=== PATIENT | male | born 1955 | race Caucasian/White ===

== ENCOUNTER 2019-05-16 11:11 | Observation (INO) ==
[2019-05-16 11:29] LABS: Basophils # 0.1 K/mm3 (0-0.2); Basophils % 0.6 % (0.1-2.0); Eosinophils # 0.3 K/mm3 (0.0-0.4); Eosinophils % 2.6 % (0.1-12.0); Hematocrit 48.7 % (42.0-52.0); Hemoglobin 16.2 g/dL (14.1-18.0); Lymphocytes # 3.9 K/mm3 (0.7-4.5); Lymphocytes % 40.2 % (10-50); Mean Corpuscular HGB Conc 33.2 g/dL (31.8-35.4); Mean Corpuscular Volume 90.1 fl (80-94); Mean Platelet Volume 7.5 fl (7.4-10.4); Monocytes # 0.7 K/mm3 (0.1-1.0); Monocytes % 7.3 % (1.7-9.3); Neutrophils # 4.7 K/mm3 (1.8-7.8); Neutrophils % 49.2 % (37.0-80.0); Platelet Count 317 K/mm3 (142-424); Red Blood Count 5.41 M/mm3 (4.60-6.20); Red Cell Distribution Width 13.1 % (11.5-17.5); White Blood Count 9.6 K/mm3 (4.8-10.8)
[2019-05-16 11:44] LABS: Anion Gap 15.2 mEq/L (5-15); Blood Urea Nitrogen 14 mg/dL (7-18); Calcium 8.8 mg/dL (8.5-10.1); Carbon Dioxide 25 mmol/L (21.0-32.0); Chloride 105 mmol/L (98-107); Glucose 148 mg/dL (74-106); Sodium 142 mmol/L (136-145)
--- NOTE | 2019-05-16 12:40 | Emergency Department Note ---
ED Disposition Clinical Impression: Chest pain Disposition: Admitted as Observation Condition on Discharge: Good Referrals: Provider,Referral, [Primary Care Provider] - - Critical Care Critical Care Time: No Attestation: On 05/16/19, the high probability of a clinically significant, sudden or life threatening deterioration of the following system(s) required my full and direct attention, intervention and personal management. The time I documented below is in addition to time spent performing reported procedures but includes the following listed in this critical care notation. Medical Decision Making - Medical Records Medical records reviewed: Yes: I reviewed the patient's medical records. - Luke Inquiry Pt receiving controlled substance: No Luke was queried for this patient: No Vital Signs: 05/16/19 11:14 05/16/19 11:55 05/16/19 12:26 Temperature 98.4 F Temperature Source Oral Pulse Rate [Right Radial] 75 67 66 Respiratory Rate 22 Blood Pressure [Right Arm] 182/105 H 132/73 123/75 Blood Pressure Mean [Right Arm] 130 92 91 Blood Pressure Source [Right Arm] Automatic Cuff Automatic Cuff Automatic Cuff Blood Pressure Position [Right Arm] Sitting Supine Supine 02 Sat by Pulse Oximetry 99 95 97 Oxygen Delivery Method Room Air Room Air Room Air - Lab Data Lab Results 05/16/19 11:15: WBC 9.6, RBC 5.41, Hgb 16.2, Hct 48.7, MCV 90.1, MCH 29.9, MCHC 33.2, RDW 13.1, Plt Count 317, MPV 7.5, Neut % (Auto) 49.2, Lymph % (Auto) 40.2, [place] % (Auto) 7.3, Eos % (Auto) 2.6, Baso % (Auto) 0.6, Neut # (Auto) 4.7, Lymph # (Auto) 3.9, [place] # (Auto) 0.7, Eos # (Auto) 0.3, Baso # (Auto) 0.1 05/16/19 11:15: Sodium 142, Potassium 3.2 L, Chloride 105, Carbon Dioxide 25, Anion Gap 15.2 H, BUN 14, Creatinine 1.01, Estimated Creat Clear 96, Estimated GFR 74, Est GFR ( Amer) 90, Glucose 148 H, Calcium 8.8, Troponin I < 0.02 Result diagrams: 05/16/19 11:15 05/16/19 11:15 Orders (Tests/Meds): ED MEDICATIONS Generic Name Dose Route Start Last Admin Trade Name Freq PRN Reason Stop Dose Admin Nitroglycerin 0.4 mg 05/16/19 11:29 Nitrostat 0.4mg Sl Tablet SL 06/15/19 11:28 [id number] PRN Chest Pain Discontinued Medications Generic Name Dose Route Start Last Admin Trade Name Freq PRN Reason Stop Dose Admin Morphine Sulfate 4 mg 05/16/19 11:29 05/16/19 11:40 Morphine 4mg/Ml Syringe IV 05/16/19 11:30 4 mg ONCE ONE Administration Ondansetron HCl 4 mg 05/16/19 11:29 05/16/19 11:40 Zofran 4mg/2ml Vial IV 05/16/19 11:30 4 mg ONCE ONE Administration Chest Pain HPI - General Chief Complaint: Chest Pain Stated Complaint: CP Time Seen by Provider: 05/16/19 11:30 Mode of Arrival: Ambulatory Limitations: No Limitations Description of Symptoms (Recalled from ER Triage Doc. by RN): PT C/O CP IN THE CENTER OF THE CHEST THAT BEGAN APPROX 1 HOUR AGO ACCOMPANIED BY A COUGH. PT DENIES ANY CARDIAC HX OR SIMILAR EPISODES. PT DENIES N/V OR SOA. 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 The patient was working outside and developed substernal chest pain. No radiation was encountered. The patient had pressure and fullness in his chest. The patient had diaphoresis. Patient had no radiation to his neck or arms. Patient had no abdominal symptoms. No nausea or vomiting or diarrhea. The patient has no history. The patient had heart attacks in the past. The patient has had no recent food to upset his stomach. Onset (ago): hour(s) Time: 11:30 Duration: constant Activity at onset: during rest Pain location: substernal Severity: moderate Quality: tightness, aching Pain radiation: none Relieving factors: nothing Exacerbating factors: nothing Associated symptoms: diaphoresis Treatments prior to or on arrival for Cardiac Chest Pain: aspirin, other (Antacids) - Related Data Allergies Allergy/AdvReac Type Severity Reaction Status Date / Time No Known Allergies Allergy Verified 05/16/19 11:12 [facility] History - Hepatitis A Screen Drug use history?: No High risk sexual behaviors?: No History of sexually transmitted infection?: No Currently employed?: No Childcare worker?: No Do you have indoor plumbing?: Yes Do you have electricity?: Yes Attestation statement:: This patient has been screened for Hepatitis A risk factors. - Social History Smoking Status: Never smoker Alcohol Intake: never Occupational Status: employed ROS Obtained: Yes All systems reviewed & no additional complaints Physical Exam - General General appearance: alert - Head Head exam: atraumatic, normocephalic, normal inspection - Eye Eye exam: Present: normal appearance, PERRL, EOMI - ENT ENT exam: Present: normal exam, normal oropharynx, mucous membranes moist, TM's normal bilaterally, normal external ear exam - Neck Neck exam: Present: normal inspection, full ROM, trachea midline. Absent: meningismus, lymphadenopathy - Chest Chest inspection: Present: normal inspection, symmetric chest wall rise. Absent: tenderness - Respiratory Respiratory exam: Present: normal lung sounds bilaterally. Absent: respiratory distress - Cardiovascular Cardiovascular exam: Present: regular rate, normal rhythm. Absent: JVD - Abdominal Exam Abdominal exam: Present: soft, normal bowel sounds. Absent: distention, tenderness, guarding - Extremities Exam Extremities exam: Present: normal inspection, full ROM, normal capillary refill. Absent: calf tenderness - Back Exam Back exam: Present: normal inspection. Absent: tenderness - Neurological Exam Neurological exam: Present: alert, oriented X3 - Psychiatric Psychiatric exam: Present: normal affect, normal mood - Skin Skin exam: Present: warm, dry, intact, normal color - Lymphatic Lymphatic Findings: no adenopathy Procedures - Risk/Benefits of Procedure(s) Were Explained: Yes
--- NOTE | 2019-05-16 13:15 | Consult Report ---
History of Present Illness Consult date: 05/16/19 Requesting physician: Star Tijerina Consult reason: chest pain Chief complaint: chest pain Additional Medical History:: 1. FH of CAD in mother who in her 50's 2. Tobacco use, remote, stopped age 25 but reportedly smoked up to 4 ppd starting at age 8 3. Unstable angina, 05/16/2019, with anterolateral EKG ST segment depression that resolved after 3 SL NTG 4. Arthritis History of present illness: 64 yo WM evaluated in ER for onset of SS CP without radiation. Symptoms associated with mild SOA, nausea and diaphoresis that did not resolved with rest or ASA and antacids. Came to ER for evaluation. Initial EKG is sinus with anterolateral ST segment depression that resolved after SL NTG X 3. Denies treatment for HTN, HLD or DM. He takes celebrex for arthritis. Cardiology consulted for evaluation and recommendations. Pt did start having chest pain after I saw him that responded to NTG SL again. [facility] History *Have you ever received a pneumonia vaccine?: Yes *Have you received a flu vaccine this season?: Yes - *Social History Smoking Status: Never smoker Alcohol Intake: never *Occupational Status:: employed *Travel in the last 8 weeks: None Family Hx:: Heart Attack Meds Home Medications Medication Instructions Recorded Confirmed Type Celecoxib 200 mg PO DAILY 05/16/19 05/16/19 History Pantoprazole Sodium [Protonix 40mg 40 mg PO DAILY 05/16/19 05/16/19 History tablet] Allergies Allergy/AdvReac Type Severity Reaction Status Date / Time No Known Allergies Allergy Verified 05/16/19 11:12 Review of Systems - *Cardiovascular Reports chest pain, Reports shortness of breath with activity - *Respiratory Reports shortness of breath with activity, Denies cough - *Gastrointestinal Denies abdominal pain, Denies loose stools, Denies vomiting - *Genitourinary Denies blood in urine - *Musculoskeletal Reports joint pain, Reports back pain - *Neurologic Denies dizziness, Denies memory loss, Denies tingling Exam Vital signs and Labs for Last 24 Hours: Temp Pulse Resp BP Pulse Ox 98.4 F 71 22 133/87 92 L 05/16/19 11:14 05/16/19 12:57 05/16/19 11:14 05/16/19 12:57 05/16/19 12:57 Laboratory Results - last 24 hr 05/16/19 11:15: WBC 9.6, RBC 5.41, Hgb 16.2, Hct 48.7, MCV 90.1, MCH 29.9, MCHC 33.2, RDW 13.1, Plt Count 317, MPV 7.5, Neut % (Auto) 49.2, Lymph % (Auto) 40.2, [place] % (Auto) 7.3, Eos % (Auto) 2.6, Baso % (Auto) 0.6, Neut # (Auto) 4.7, Lymph # (Auto) 3.9, [place] # (Auto) 0.7, Eos # (Auto) 0.3, Baso # (Auto) 0.1 05/16/19 11:15: Sodium 142, Potassium 3.2 L, Chloride 105, Carbon Dioxide 25, An ion Gap 15.2 H, BUN 14, Creatinine 1.01, Estimated Creat Clear 96, Estimated GFR 74, Est GFR ( Amer) 90, Glucose 148 H, Calcium 8.8, Troponin I < 0.02 I & O for Last 24 hours: Intake & Output 05/14/19 05/15/19 05/16/19 05/17/19 11:59 11:59 11:59 11:59 Weight 202 lb - *Routine HEENT Exam Head: Present: normocephalic Eye: Present: EOMI, PERRL ENT: Present: mucous membranes moist - *Routine Neck Exam Present: supple. Absent: JVD, carotid bruit - *Routine Respiratory Exam Present: CTA bilaterally. Absent: accessory muscle use, rales, rhonchi, wheezes - *Routine Cardiovascular Exam Present: RRR. Absent: murmur, gallop, rubs - *Routine Abdominal Exam Present: soft. Absent: tenderness, distended, guarding - *Routine Extremities Exam Absent: edema, calf tenderness - *Routine Neurological Exam Present: alert, oriented X3, moving all extremities Assessment and Plan (1) Acute coronary syndrome Current visit: Yes Status: Acute Category: Medical Code(s): I24.9 - Acute ischemic heart disease, unspecified (2) Quit using tobacco in remote past Current visit: Yes Status: Acute Category: Social Hx Code(s): Z91.89 - Other specified personal risk factors, not elsewhere classified (3) Arthritis Current visit: Yes Status: Acute Category: Medical Code(s): M19.90 - Unspecified osteoarthritis, unspecified site (4) FH ischemic heart disease Current visit: Yes Status: Acute Category: Medical Code(s): Z82.49 - Family history of ischemic heart disease and other diseases of the circulatory system - Assessment and plan all Dx Assessment and Plan for all problems:: 1. Pt has received ASA loading. NTG paste has been applied. 2. will take to cardiac hoisting laborer for LHC. 3. Further recommendations to follow.
--- NOTE | 2019-05-16 14:43 | Pharmacy Consult Notes ---
[facility] Pharm[facility] VTE Monitoring - Patient Demographics Admission date: 05/16/19 Report Date: 05/16/19 Time: 14:43 Allergies/Adverse Reactions: Patient Allergies No Known Allergies Allergy (Verified 05/16/19 11:12) Height: 1.73 m Weight: 91.626 kg Patient Problems: Current Active Problems Chest pain (Acute) Acute coronary syndrome (Acute) Quit using tobacco in remote past (Acute) Arthritis (Acute) FH ischemic heart disease (Acute) - VTE Risk Labs: VTE Related Lab Results Hgb 16.2 g/dL (14.1-18.0) 05/16/19 11:15 Hct 48.7 % (42.0-52.0) 05/16/19 11:15 Plt Count 317 K/mm3 (142-424) 05/16/19 11:15 BUN 14 mg/dL (7-18) 05/16/19 11:15 Creatinine 1.01 mg/dL (0.70-1.30) 05/16/19 11:15 Estimated Creat Clear 96 mL/min (50-200) 05/16/19 11:15 - Prophylaxis VTE Prophylaxis Ordered?: Yes Types of VTE Prophylaxis: TEDS Knee High Location of Applied Device: Bilateral Lower Extremeties - VTE Diagnosis Confirmed Treatment or plan recommended: Continue Current Treatment
--- NOTE | 2019-05-16 15:57 | Electrocardiograph Report ---
APPROVED REPORT Exam: Resting ECG HR:67 bpm ECG Measurements Heart Rate 67 AXES AL 200 P 52 QRSd 104 QRS -24 QT 432 T60 QTc 456 <Conclusion> Normal sinus rhythm Nonspecific ST abnormality Abnormal ECG Electronically signed by : Larry Chiang, 05/16/2019 15:56:48
--- NOTE | 2019-05-16 15:57 | Electrocardiograph Report ---
APPROVED REPORT Exam: Resting ECG HR:74 bpm ECG Measurements Heart Rate 74 AXES MI 192 P 54 QRSd 106 QRS -17 QT 386 T53 QTc 428 <Conclusion> Normal sinus rhythm Marked ST abnormality, possible anteroseptal subendocardial injury Abnormal ECG Electronically signed by : Larry Chiang, 05/16/2019 15:56:55
--- NOTE | 2019-05-16 17:23 | Progress Note ---
Internal Medicine - PN: Subj *Date: 05/16/19 *Time: 17:20 Interval history: Patient came to ER today after having chest pain while mowing his yard. EKG showed ST depression, pain was relieved with 3 SL NTG. He was taken directly to the pipelines laborer and had 5 stents placed. Troponin was 0.91. Pt is resting comfortably now with family by his side in the ICU. Exam Vital signs and Labs for Last 24 Hours: Temp Pulse Resp BP Pulse Ox 98.5 F 69 18 142/78 H 90 L 05/16/19 17:00 05/16/19 17:00 05/16/19 17:00 05/16/19 17:00 05/16/19 17:00 Laboratory Results - last 24 hr 05/16/19 11:15: WBC 9.6, RBC 5.41, Hgb 16.2, Hct 48.7, MCV 90.1, MCH 29.9, MCHC 33.2, RDW 13.1, Plt Count 317, MPV 7.5, Neut % (Auto) 49.2, Lymph % (Auto) 40.2, [place] % (Auto) 7.3, Eos % (Auto) 2.6, Baso % (Auto) 0.6, Neut # (Auto) 4.7, Lymph # (Auto) 3.9, [place] # (Auto) 0.7, Eos # (Auto) 0.3, Baso # (Auto) 0.1 05/16/19 11:15: Sodium 142, Potassium 3.2 L, Chloride 105, Carbon Dioxide 25, Anion Gap 15.2 H, BUN 14, Creatinine 1.01, Estimated Creat Clear 96, Estimated GFR 74, Est GFR ( Amer) 90, Glucose 148 H, Calcium 8.8, Troponin I < 0.02 05/16/19 13:30: Troponin I 0.91 H 05/16/19 15:03: Activated Clotting Time 384 H* 05/16/19 15:22: Activated Clotting Time 257 H* D Vital Signs - 24 hr 05/16/19 11:14 05/16/19 11:55 05/16/19 12:26 Temperature 98.4 F Pulse Rate Pulse Rate [Right Radial] 75 67 66 Respiratory Rate 22 Blood Pressure Blood Pressure [Right Arm] 182/105 H 132/73 123/75 02 Sat by Pulse Oximetry 99 95 97 05/16/19 12:57 05/16/19 13:40 05/16/19 14:00 Temperature 98.0 F Pulse Rate 80 Pulse Rate [Right Radial] 71 68 Respiratory Rate 18 18 Blood Pressure 112/74 Blood Pressure [Right Arm] 133/87 133/74 02 Sat by Pulse Oximetry 92 L 99 05/16/19 15:30 05/16/19 15:35 05/16/19 15:40 Temperature Pulse Rate Pulse Rate [Right Radial] 74 72 71 Respiratory Rate 18 18 18 Blood Pressure Blood Pressure [Right Arm] 137/82 145/79 H 143/78 H 02 Sat by Pulse Oximetry 93 L 88 L 94 L 05/16/19 15:45 05/16/19 15:49 05/16/19 16:00 Temperature Pulse Rate 67 Pulse Rate [Right Radial] 68 65 64 Respiratory Rate 18 16 18 Blood Pressure Blood Pressure [Right Arm] 140/70 117/71 132/69 02 Sat by Pulse Oximetry 98 94 L 99 05/16/19 17:00 Temperature 98.5 F Pulse Rate 70 Pulse Rate [Right Radial] 69 Respiratory Rate 18 Blood Pressure Blood Pressure [Right Arm] 142/78 H 02 Sat by Pulse Oximetry 90 L I & O for Last 24 hours: Intake & Output 05/13/19 05/14/19 05/15/19 05/16/19 23:59 23:59 23:59 23:59 Weight 202 lb - Constitutional no acute distress (conversant) Assessment and Plan (1) Acute coronary syndrome Current visit: Yes Status: Acute Category: Medical Code(s): I24.9 - Acute ischemic heart disease, unspecified (2) Quit using tobacco in remote past Current visit: Yes Status: Acute Category: Social Hx Code(s): Z91.89 - Other specified personal risk factors, not elsewhere classified (3) Arthritis Current visit: Yes Status: Acute Category: Medical Code(s): M19.90 - Unspecified osteoarthritis, unspecified site (4) FH ischemic heart disease Current visit: Yes Status: Acute Category: Medical Code(s): Z82.49 - Family history of ischemic heart disease and other diseases of the circulatory system (5) Non-ST elevated myocardial infarction Current visit: Yes Status: Acute Category: Medical Code(s): I21.4 - Non-ST elevation (NSTEMI) myocardial infarction (6) S/P coronary artery stent placement Current visit: Yes Status: Acute Category: Surgical Code(s): Z95.5 - Presence of coronary angioplasty implant and graft - Assessment and plan all Dx Assessment and Plan for all problems:: Will check echo and fasting lipids in the morning, continue current post cath care.
--- NOTE | 2019-05-16 18:02 | History & Physical Report ---
*Admission Date: 05/16/19 <Emiliana Traoremagda Diehl 05/16/19 18:02> *Chief complaint: Chest pain <TraoreDanica 05/16/19 18:02> *History of present illness: Mr. Stover is a 64 yo WM with a history of psoriasis, hiatal hernia, esophageal reflux, and right hip fracture who presented to [facility] emergency room after experiencing substernal chest pain without radiation while mowing his yard. He had mild shortness of breath, nausea, and diaphoresis that did not resolve with rest, aspirin or antiacids. Thus he presented to the emergency room for evaluation. Initial EKG showed sinus rhythm with anterior lateral ST segment depression that resolved after 3 nitroglycerin. Cardiology was consulted for evaluation /recommendations after which patient did again begin to have chest pain that responded again to sublingual nitroglycerin. He was taken directly to the [facility] and had 5 stents placed. Troponin was noted at 0.91. At the time of this exam patient appears comfortable and is eating his dinner with family at bedside. He denies chest pain and shortness of breath. <Danica Traore 05/16/19 18:22> [facility] History Medical History: Reports:: Gastroesophageal Reflux Disease(GERD) <Danica Traore 05/16/19 18:10> *Have you ever received a pneumonia vaccine?: Yes <Danica Traore 05/16/19 18:02> *Have you received a flu vaccine this season?: Yes <Danica Traore 05/16/19 18:02> Other Medical History: Reports: Arthritis <Danica rTaore 05/16/19 18:20> Comment:: Hiatal hernia <Danica Traore 05/16/19 18:10> Comment: Left foot surgery in 2016; right hip replacement July 2017 <Danica Traore 05/16/19 18:10> - *Social History Smoking Status: Former smoker <Danica Traore 05/16/19 18:10> Alcohol Intake: never <Danica Traore 05/16/19 18:02> *Occupational Status:: employed <Danica Traore 05/16/19 18:02> *Travel in the last 8 weeks: None <Danica Traore 05/16/19 18:02> Family Hx:: Heart Attack <Danica Traore 05/16/19 18:02> Review of Systems - Constitutional Denies chills, Denies fever(s) <Danica Traore 05/16/19 18:20> - Eyes Comments: Wears contacts which she still has in <Danica Traore 05/16/19 18:20> - ENT Denies ear pain, Denies sore throat <Danica Traore 05/16/19 18:20> - *Cardiovascular Reports chest pain, Reports excessive sweating, Reports shortness of breath, Denies irregular heart rhythm, Denies leg swelling <Danica Traore 05/16/19 18:20> - *Respiratory Reports shortness of breath, Denies chest congestion, Denies cough, Denies coughing up blood <Danica Traore 05/16/19 18:20> - *Gastrointestinal Reports heartburn, Denies abdominal pain, Denies constipation, Denies loose stools <Danica Traore 05/16/19 18:20> - *Genitourinary Denies difficulty urinating <Danica Traore 05/16/19 18:20> - *Musculoskeletal Reports joint pain, Denies abnormal walking <Danica Traore 05/16/19 18:20> - *Neurologic Denies seizure-like activity, Denies dizziness, Denies memory loss, Denies tingling <Danica Traore 05/16/19 18:20> Meds Home Medications Medication Instructions Recorded Confirmed Type Celecoxib 200 mg PO DAILY 05/16/19 05/16/19 History Pantoprazole Sodium [Protonix 40mg 40 mg PO DAILY 05/16/19 05/16/19 History tablet] <Amna Tijerinaian - 05/17/19 08:21> Allergies Allergy/AdvReac Type Severity Reaction Status Date / Time No Known Allergies Allergy Verified 05/16/19 11:12 <Star Tijerina - 05/17/19 08:21> Exam Vital signs and Labs for Last 24 Hours: Temp Pulse Resp BP Pulse Ox 98.0 F 65 14 133/71 96 05/17/19 00:00 05/17/19 06:24 05/17/19 06:24 05/17/19 06:24 05/17/19 06:24 Laboratory Results - last 24 hr 05/16/19 11:15: WBC 9.6, RBC 5.41, Hgb 16.2, Hct 48.7, MCV 90.1, MCH 29.9, MCHC 33.2, RDW 13.1, Plt Count 317, MPV 7.5, Neut % (Auto) 49.2, Lymph % (Auto) 40.2, [place] % (Auto) 7.3, Eos % (Auto) 2.6, Baso % (Auto) 0.6, Neut # (Auto) 4.7, Lymph # (Auto) 3.9, [place] # (Auto) 0.7, Eos # (Auto) 0.3, Baso # (Auto) 0.1 05/16/19 11:15: Sodium 142, Potassium 3.2 L, Chloride 105, Carbon Dioxide 25, Anion Gap 15.2 H, BUN 14, Creatinine 1.01, Estimated Creat Clear 96, Estimated GFR 74, Est GFR ( Amer) 90, Glucose 148 H, Calcium 8.8, Troponin I < 0.02 05/16/19 13:30: Troponin I 0.91 H 05/16/19 15:03: Activated Clotting Time 384 H* 05/16/19 15:22: Activated Clotting Time 257 H* D 05/17/19 05:42: Sodium 139, Potassium 4.0 D, Chloride 103, Carbon Dioxide 29, Anion Gap 11.0, BUN 10 D, Creatinine 0.98, Estimated Creat Clear 100, Estimated GFR 77, Est GFR ( Amer) 93, Glucose 98 D, Calcium 8.4 L, Triglycerides 125, Cholesterol 173, LDL Cholesterol 109, VLDL Cholesterol 25, HDL Cholesterol 39, Cholesterol/HDL Ratio 4.4 H <Star Tijerina - 05/17/19 08:21> Temp Pulse Resp BP Pulse Ox 98.5 F 69 18 142/78 H 90 L 05/16/19 17:00 05/16/19 17:00 05/16/19 17:00 05/16/19 17:00 05/16/19 17:00 Laboratory Results - last 24 hr 05/16/19 11:15: WBC 9.6, RBC 5.41, Hgb 16.2, Hct 48.7, MCV 90.1, MCH 29.9, MCHC 33.2, RDW 13.1, Plt Count 317, MPV 7.5, Neut % (Auto) 49.2, Lymph % (Auto) 40.2, [place] % (Auto) 7.3, Eos % (Auto) 2.6, Baso % (Auto) 0.6, Neut # (Auto) 4.7, Lymph # (Auto) 3.9, [place] # (Auto) 0.7, Eos # (Auto) 0.3, Baso # (Auto) 0.1 05/16/19 11:15: Sodium 142, Potassium 3.2 L, Chloride 105, Carbon Dioxide 25, Anion Gap 15.2 H, BUN 14, Creatinine 1.01, Estimated Creat Clear 96, Estimated GFR 74, Est GFR ( Amer) 90, Glucose 148 H, Calcium 8.8, Troponin I < 0.02 05/16/19 13:30: Troponin I 0.91 H 05/16/19 15:03: Activated Clotting Time 384 H* 05/16/19 15:22: Activated Clotting Time 257 H* D <Danica Traore - 05/16/19 18:02> I & O for Last 24 hours: Intake & Output 05/14/19 05/15/19 05/16/19 05/17/19 23:59 23:59 23:59 23:59 Intake Total 10 10 Output Total 900 / 900 325 / 325 Balance -900 / -900 -315 / -315 Weight 201 lb 15.8 oz 208 lb <Star Tijerina - 05/17/19 08:21> Intake & Output 05/14/19 05/15/19 05/16/19 05/17/19 11:59 11:59 11:59 11:59 Weight 202 lb <Danica Traore - 05/16/19 18:02> Radiology Reports for the Last 24 Hours: Chest x-ray 05/16/2019 IMPRESSION: No acute findings. EKG 05/16/2019 <Conclusion> Normal sinus rhythm Marked ST abnormality, possible anteroseptal subendocardial injury Abnormal ECG Left heart cath 05/16/2019 IMPRESSION Severe two-vessel coronary artery disease as described above Successful stenting of the proximal to mid LAD severe disease reduced to 0% with 2 stents placed in a contiguous manner with persistent stenosis and a large first diagonal artery which is accompanied by MYNOR-3 flow Successful stenting of the proximal to mid circumflex artery with successful bifurcating stents into the first and second obtuse marginal artery. Severe disease reduced to 0% with 3 drug-eluting stents as described in a contiguous bifurcating manner. Normal ejection fraction Normal left ventricular end-diastolic pressure PLAN 1. Brilinta and aspirin for 1 year 2. LDL less than 55 3. Cardiac rehabilitation 4. Aggressive risk factor modification 5. Avoidance of tobacco products 6. The first diagonal artery is best managed medically at this time. Should he experience recurrent angina consideration could be given to stent the diagonal artery. Likewise the right coronary artery is best managed medically Electronically signed by : Berry Negron, 05/16/2019 15:32:25 <Danica Traore 05/16/19 18:20> - Constitutional no acute distress <Danica Traore 05/16/19 18:20> Comments: Lying in bed eating his dinner with family at bedside <Danica Traore 05/16/19 18:20> - *Routine HEENT Exam Head: Present: normocephalic, atraumatic <Danica Traore 05/16/19 18:20> Eye: Present: PERRL. Absent: conjunctival icterus, scleral injection, conjunctivae pink <Danica Traore 05/16/19 18:20> ENT: Present: mucous membranes moist <Danica Traore 05/16/19 18:20> - *Routine Neck Exam Present: supple. Absent: carotid bruit, lymphadenopathy, thyromegaly <Danica Traore 05/16/19 18:20> - *Routine Respiratory Exam Present: CTA bilaterally (Anteriorly and posteriorly) <Danica Traore 18:20> - *Routine Cardiovascular Exam Present: RRR <Danica Traore 05/16/19 18:20> Comments: Sinus rhythm on monitor <Danica Traore 05/16/19 18:20> - *Routine Abdominal Exam Present: soft, normoactive bowel sounds. Absent: tenderness <Danica Traore 05/16/19 18:20> - *Routine Extremities Exam Absent: edema, calf tenderness <Danica Traore 05/16/19 18:20> - *Routine Skin Exam Present: dry, warm <Danica Traore - 05/16/19 18:20> Comments: Color is good <Danica Traore - 05/16/19 18:20> - *Routine Neurological Exam Present: alert, oriented X3 <Danica Traore - 05/16/19 18:20> Assessment and Plan (1) Acute coronary syndrome Current visit: Yes Status: Acute Category: Medical Code(s): I24.9 - Acute ischemic heart disease, unspecified (2) Quit using tobacco in remote past Current visit: Yes Status: Acute Category: Social Hx Code(s): Z91.89 - Other specified personal risk factors, not elsewhere classified (3) Arthritis Current visit: Yes Status: Acute Category: Medical Code(s): M19.90 - Unspecified osteoarthritis, unspecified site (4) FH ischemic heart disease Current visit: Yes Status: Acute Category: Medical Code(s): Z82.49 - Family history of ischemic heart disease and other diseases of the circulatory system (5) Non-ST elevated myocardial infarction Current visit: Yes Status: Acute Category: Medical Code(s): I21.4 - Non-ST elevation (NSTEMI) myocardial infarction (6) S/P coronary artery stent placement Current visit: Yes Status: Acute Category: Surgical Code(s): Z95.5 - Presence of coronary angioplasty implant and graft (7) GERD (gastroesophageal reflux disease) Current visit: Yes Status: Chronic Category: Medical Code(s): K21.9 - Gastro-esophageal reflux disease without esophagitis (8) Hiatal hernia Current visit: Yes Status: Chronic Category: Medical Code(s): K44.9 - Diaphragmatic hernia without obstruction or gangrene <ClevelandStar avendaño - 05/17/19 08:21> (1) Acute coronary syndrome Current visit: Yes Status: Acute Category: Medical Code(s): I24.9 - Acute ischemic heart disease, unspecified (2) Quit using tobacco in remote past Current visit: Yes Status: Acute Category: Social Hx Code(s): Z91.89 - Other specified personal risk factors, not elsewhere classified (3) Arthritis Current visit: Yes Status: Acute Category: Medical Code(s): M19.90 - Unspecified osteoarthritis, unspecified site (4) FH ischemic heart disease Current visit: Yes Status: Acute Category: Medical Code(s): Z82.49 - Family history of ischemic heart disease and other diseases of the circulatory system (5) Non-ST elevated myocardial infarction Current visit: Yes Status: Acute Category: Medical Code(s): I21.4 - Non-ST elevation (NSTEMI) myocardial infarction (6) S/P coronary artery stent placement Current visit: Yes Status: Acute Category: Surgical Code(s): Z95.5 - Presence of coronary angioplasty implant and graft (7) GERD (gastroesophageal reflux disease) Current visit: Yes Status: Chronic Category: Medical Code(s): K21.9 - Gastro-esophageal reflux disease without esophagitis (8) Hiatal hernia Current visit: Yes Status: Chronic Category: Medical Code(s): K44.9 - Diaphragmatic hernia without obstruction or gangrene <Danica Traore - 05/16/19 18:20> - Assessment and plan all Dx Assessment and Plan for all problems:: Saw patient, agree with above note. <Star Tijerina - 05/17/19 08:21> Post cath care as per cardiology. Will check echo and fasting lipids. <Danica Traore - 05/16/19 18:22>
[2019-05-17 07:13] LABS: Basophils % 0.3 % (0.1-2.0); Eosinophils # 0.2 K/mm3 (0.0-0.4); Eosinophils % 1.6 % (0.1-12.0); Hematocrit 44.9 % (42.0-52.0); Hemoglobin 14.9 g/dL (14.1-18.0); Lymphocytes % 17.3 % (10-50); Mean Corpuscular HGB Conc 33.2 g/dL (31.8-35.4); Mean Corpuscular Volume 90.9 fl (80-94); Mean Platelet Volume 7.3 fl (7.4-10.4); Monocytes # 0.6 K/mm3 (0.1-1.0); Monocytes % 5.4 % (1.7-9.3); Neutrophils # 8.8 K/mm3 (1.8-7.8); Neutrophils % 75.4 % (37.0-80.0); Platelet Count 266 K/mm3 (142-424); Red Blood Count 4.94 M/mm3 (4.60-6.20); Red Cell Distribution Width 13.2 % (11.5-17.5); White Blood Count 11.7 K/mm3 (4.8-10.8)
[2019-05-17 07:27] LABS: Calcium 8.4 mg/dL (8.5-10.1); Chol/HDL Ratio 4.4 (1-3.5)
--- NOTE | 2019-05-17 07:35 | Progress Note ---
<Danica Traore - Last Filed: 05/17/19 07:32> Internal Medicine - PN: Subj *Date: 05/17/19 *Time: 07:32 Interval history: Patient has done well overnight. Did not sleep much but states he never sleeps well. He is eating without difficulty. He states he has had a little bit heartburn. He denies chest pain and shortness of breath. He has ambulated to the bathroom without problems. He wishes to go home. Exam Vital signs and Labs for Last 24 Hours: Temp Pulse Resp BP Pulse Ox 98.0 F 65 14 133/71 96 05/17/19 00:00 05/17/19 06:24 05/17/19 06:24 05/17/19 06:24 05/17/19 06:24 Laboratory Results - last 24 hr 05/16/19 11:15: WBC 9.6, RBC 5.41, Hgb 16.2, Hct 48.7, MCV 90.1, MCH 29.9, MCHC 33.2, RDW 13.1, Plt Count 317, MPV 7.5, Neut % (Auto) 49.2, Lymph % (Auto) 40.2, [place] % (Auto) 7.3, Eos % (Auto) 2.6, Baso % (Auto) 0.6, Neut # (Auto) 4.7, Lymph # (Auto) 3.9, [place] # (Auto) 0.7, Eos # (Auto) 0.3, Baso # (Auto) 0.1 05/16/19 11:15: Sodium 142, Potassium 3.2 L, Chloride 105, Carbon Dioxide 25, Anion Gap 15.2 H, BUN 14, Creatinine 1.01, Estimated Creat Clear 96, Estimated GFR 74, Est GFR ( Amer) 90, Glucose 148 H, Calcium 8.8, Troponin I < 0.02 05/16/19 13:30: Troponin I 0.91 H 05/16/19 15:03: Activated Clotting Time 384 H* 05/16/19 15:22: Activated Clotting Time 257 H* D 05/17/19 05:42: Sodium 139, Potassium 4.0 D, Chloride 103, Carbon Dioxide 29, Anion Gap 11.0, BUN 10 D, Creatinine 0.98, Estimated Creat Clear 100, Estimated GFR 77, Est GFR ( Amer) 93, Glucose 98 D, Calcium 8.4 L, Triglycerides 125, Cholesterol 173, LDL Cholesterol 109, VLDL Cholesterol 25, HDL Cholesterol 39, Cholesterol/HDL Ratio 4.4 H I & O for Last 24 hours: Intake & Output 05/14/19 05/15/19 05/16/19 05/17/19 11:59 11:59 11:59 11:59 Intake Total Output Total 1225 / 1225 Balance -1215 / -1215 Weight 202 lb 208 lb - Constitutional no acute distress Comments: Sitting in chair at bedside eating his breakfast - *Routine Respiratory Exam Present: CTA bilaterally (Anteriorly and posteriorly) - *Routine Cardiovascular Exam Present: RRR Comments: Monitor showing sinus rhythm - *Routine Abdominal Exam Present: soft, normoactive bowel sounds. Absent: tenderness - *Routine Extremities Exam Absent: edema, calf tenderness - *Routine Neurological Exam Present: alert, oriented X3 Assessment and Plan (1) Acute coronary syndrome Current visit: Yes Status: Acute Category: Medical Code(s): I24.9 - Acute ischemic heart disease, unspecified (2) Quit using tobacco in remote past Current visit: Yes Status: Acute Category: Social Hx Code(s): Z91.89 - Other specified personal risk factors, not elsewhere classified (3) Arthritis Current visit: Yes Status: Acute Category: Medical Code(s): M19.90 - Unspecified osteoarthritis, unspecified site (4) FH ischemic heart disease Current visit: Yes Status: Acute Category: Medical Code(s): Z82.49 - Family history of ischemic heart disease and other diseases of the circulatory system (5) Non-ST elevated myocardial infarction Current visit: Yes Status: Acute Category: Medical Code(s): I21.4 - Non-ST elevation (NSTEMI) myocardial infarction (6) S/P coronary artery stent placement Current visit: Yes Status: Acute Category: Surgical Code(s): Z95.5 - Presence of coronary angioplasty implant and graft (7) GERD (gastroesophageal reflux disease) Current visit: Yes Status: Chronic Category: Medical Code(s): K21.9 - Gastro-esophageal reflux disease without esophagitis (8) Hiatal hernia Current visit: Yes Status: Chronic Category: Medical Code(s): K44.9 - Diaphragmatic hernia without obstruction or gangrene - Assessment and plan all Dx Assessment and Plan for all problems:: Echo has been completed this a.m. Probably home today. <Star Tijerina - Last Filed: 05/17/19 08:26> Internal Medicine - PN: Subj *Date: 05/17/19 *Time: 08:26 Exam Vital signs and Labs for Last 24 Hours: Temp Pulse Resp BP Pulse Ox 98.0 F 65 14 133/71 96 05/17/19 00:00 05/17/19 06:24 05/17/19 06:24 05/17/19 06:24 05/17/19 06:24 Laboratory Results - last 24 hr 05/16/19 11:15: WBC 9.6, RBC 5.41, Hgb 16.2, Hct 48.7, MCV 90.1, MCH 29.9, MCHC 33.2, RDW 13.1, Plt Count 317, MPV 7.5, Neut % (Auto) 49.2, Lymph % (Auto) 40.2, [place] % (Auto) 7.3, Eos % (Auto) 2.6, Baso % (Auto) 0.6, Neut # (Auto) 4.7, Lymph # (Auto) 3.9, [place] # (Auto) 0.7, Eos # (Auto) 0.3, Baso # (Auto) 0.1 05/16/19 11:15: Sodium 142, Potassium 3.2 L, Chloride 105, Carbon Dioxide 25, Anion Gap 15.2 H, BUN 14, Creatinine 1.01, Estimated Creat Clear 96, Estimated GFR 74, Est GFR ( Amer) 90, Glucose 148 H, Calcium 8.8, Troponin I < 0.02 05/16/19 13:30: Troponin I 0.91 H 05/16/19 15:03: Activated Clotting Time 384 H* 05/16/19 15:22: Activated Clotting Time 257 H* D 05/17/19 05:42: Sodium 139, Potassium 4.0 D, Chloride 103, Carbon Dioxide 29, Anion Gap 11.0, BUN 10 D, Creatinine 0.98, Estimated Creat Clear 100, Estimated GFR 77, Est GFR ( Amer) 93, Glucose 98 D, Calcium 8.4 L, Triglycerides 125, Cholesterol 173, LDL Cholesterol 109, VLDL Cholesterol 25, HDL Cholesterol 39, Cholesterol/HDL Ratio 4.4 H I & O for Last 24 hours: Intake & Output 05/14/19 05/15/19 05/16/19 05/17/19 23:59 23:59 23:59 23:59 Intake Total Output Total 900 / 900 325 / 325 Balance -900 / -900 -315 / -315 Weight 201 lb 15.8 oz 208 lb Assessment and Plan (1) Acute coronary syndrome Current visit: Yes Status: Acute Category: Medical Code(s): I24.9 - Acute ischemic heart disease, unspecified (2) Quit using tobacco in remote past Current visit: Yes Status: Acute Category: Social Hx Code(s): Z91.89 - Other specified personal risk factors, not elsewhere classified (3) Arthritis Current visit: Yes Status: Acute Category: Medical Code(s): M19.90 - Unspecified osteoarthritis, unspecified site (4) FH ischemic heart disease Current visit: Yes Status: Acute Category: Medical Code(s): Z82.49 - Family history of ischemic heart disease and other diseases of the circulatory system (5) Non-ST elevated myocardial infarction Current visit: Yes Status: Acute Category: Medical Code(s): I21.4 - Non-ST elevation (NSTEMI) myocardial infarction (6) S/P coronary artery stent placement Current visit: Yes Status: Acute Category: Surgical Code(s): Z95.5 - Presence of coronary angioplasty implant and graft (7) GERD (gastroesophageal reflux disease) Current visit: Yes Status: Chronic Category: Medical Code(s): K21.9 - Gastro-esophageal reflux disease without esophagitis (8) Hiatal hernia Current visit: Yes Status: Chronic Category: Medical Code(s): K44.9 - Diaphragmatic hernia without obstruction or gangrene - Assessment and plan all Dx Assessment and Plan for all problems:: Saw patient, agree with above note.
--- NOTE | 2019-05-17 10:26 | Progress Note ---
Subjective Date: 05/17/19 Time: 10:15 Principal diagnosis: chest pain Interval history: This is a 64 yo WM who was admitted to the hospital with CP. Pt did have an elevated troponin consistent with a Non-STEMI. He underwent stenting to the LAD with 2 MINH and stenting to the circ bifurcating the 1st OM with 3 MINH. Pt on Brilinta and Asa for DAPT. Having some burning in the chest that he states feels like heart burn. center of chest. pain under the L arm as well. this has been constant since [facility] yesterday. nothing worsens on improves the pain. this is mild and feels nothing like it did yesterday before stenting. denies SOB, edema, fever, chills, N/V/D, PND or orthopnea. Overall, states he feels well and he is ready to go home. Exam Vital signs and Labs for Last 24 Hours: Temp Pulse Resp BP Pulse Ox 98.0 F 66 18 133/83 98 05/17/19 00:00 05/17/19 08:00 05/17/19 08:00 05/17/19 08:00 05/17/19 08:00 Laboratory Results - last 24 hr 05/16/19 11:15: WBC 9.6, RBC 5.41, Hgb 16.2, Hct 48.7, MCV 90.1, MCH 29.9, MCHC 33.2, RDW 13.1, Plt Count 317, MPV 7.5, Neut % (Auto) 49.2, Lymph % (Auto) 40.2, [place] % (Auto) 7.3, Eos % (Auto) 2.6, Baso % (Auto) 0.6, Neut # (Auto) 4.7, Lymph # (Auto) 3.9, [place] # (Auto) 0.7, Eos # (Auto) 0.3, Baso # (Auto) 0.1 05/16/19 11:15: Sodium 142, Potassium 3.2 L, Chloride 105, Carbon Dioxide 25, Anion Gap 15.2 H, BUN 14, Creatinine 1.01, Estimated Creat Clear 96, Estimated GFR 74, Est GFR ( Amer) 90, Glucose 148 H, Calcium 8.8, Troponin I < 0.02 05/16/19 13:30: Troponin I 0.91 H 05/16/19 15:03: Activated Clotting Time 384 H* 05/16/19 15:22: Activated Clotting Time 257 H* D 05/17/19 05:42: WBC 11.7 H, RBC 4.94, Hgb 14.9, Hct 44.9, MCV 90.9, MCH 30.1, MCHC 33.2, RDW 13.2, Plt Count 266, MPV 7.3 L, Neut % (Auto) 75.4, Lymph % (Auto) 17.3, [place]au[place] % (Auto) 5.4, Eos % (Auto) 1.6, Baso % (Auto) 0.3, Neut # (Auto) 8.8 H, Lymph # (Auto) 2.0, [place]au[place] # (Auto) 0.6, Eos # (Auto) 0.2, Baso # (Auto) 0.0 05/17/19 05:42: Sodium 139, Potassium 4.0 D, Chloride 103, Carbon Dioxide 29, Anion Gap 11.0, BUN 10 D, Creatinine 0.98, Estimated Creat Clear 100, Estimated GFR 77, Est GFR ( Amer) 93, Glucose 98 D, Calcium 8.4 L, Triglycerides 125, Cholesterol 173, LDL Cholesterol 109, VLDL Cholesterol 25, HDL Cholesterol 39, Cholesterol/HDL Ratio 4.4 H I & O for Last 24 hours: Intake & Output 05/14/19 05/15/19 05/16/19 05/17/19 23:59 23:59 23:59 23:59 Intake Total Output Total 900 / 900 325 / 325 Balance -900 / -900 -315 / -315 Weight 201 lb 15.8 oz 208 lb Narrative: [facility] shows: MPRESSION Severe two-vessel coronary artery disease as described above Successful stenting of the proximal to mid LAD severe disease reduced to 0% with 2 stents placed in a contiguous manner with persistent stenosis and a large first diagonal artery which is accompanied by MYNOR-3 flow Successful stenting of the proximal to mid circumflex artery with successful bifurcating stents into the first and second obtuse marginal artery. Severe disease reduced to 0% with 3 drug-eluting stents as described in a contiguous bifurcating manner. Normal ejection fraction Normal left ventricular end-diastolic pressure PLAN 1. Brilinta and aspirin for 1 year 2. LDL less than 55 3. Cardiac rehabilitation 4. Aggressive risk factor modification 5. Avoidance of tobacco products 6. The first diagonal artery is best managed medically at this time. Should he experience recurrent angina consideration could be given to stent the diagonal artery. Likewise the right coronary artery is best managed medically - Constitutional no acute distress, obese - *Routine HEENT Exam Head: Present: normocephalic, atraumatic Eye: Present: EOMI, PERRL ENT: Present: mucous membranes moist - *Routine Neck Exam Present: supple, full ROM, normal carotid upstroke. Absent: JVD, carotid bruit, lymphadenopathy - *Routine Respiratory Exam Present: CTA bilaterally - *Routine Cardiovascular Exam Present: RRR, Normal S1, Normal S2. Absent: murmur - *Routine Abdominal Exam Present: soft, normoactive bowel sounds. Absent: tenderness, distended - *Routine Extremities Exam Present: full ROM, pulses intact, normal capillary refill. Absent: cyanosis, clubbing, edema - *Routine Skin Exam Present: intact, warm. Absent: erythema, rash - *Routine Neurological Exam Present: alert, oriented X3, CN II-XII intact. Absent: sensory deficit, motor deficit - Detailed Eye Exam Eyelids: Left normal inspection Progress Note: A&P (1) Non-ST elevated myocardial infarction Status: Acute Current Visit: Yes (2) CAD (coronary artery disease) Status: Chronic Current Visit: Yes (3) Acute coronary syndrome Status: Acute Current Visit: Yes (4) Quit using tobacco in remote past Status: Acute Current Visit: Yes (5) Arthritis Status: Acute Current Visit: Yes (6) FH ischemic heart disease Status: Acute Current Visit: Yes (7) S/P coronary artery stent placement Status: Acute Current Visit: Yes (8) GERD (gastroesophageal reflux disease) Status: Chronic Current Visit: Yes (9) Hiatal hernia Status: Chronic Current Visit: Yes Assessment and Plan for All Diagnoses:: Plan: 1. Pt admitted with CP. Elevsated troponin consistent with a Non-STEMI. 2 stents to LAD and 3 stents to circ bifurcating the 1st OM. tolerated the procedure well. will remain on DAPT with Brilinta and Asa. Long discussion with the patient about the importance of DAPT. pt verbalized understanding. 2. pt having some CP since procedure. burning sensation and feels like heart burn. pain under L arm as well. this is better than before stenting but has been constant. persistent severe disease to the 2nd OM at 80-90%. start Imdur 30 mg daily and ranexa 500 mg BID for angina. 3. start Protonix 40 mg daily for GERD. 4. Pt on BB and Gilbert-I post SD. 5. BP is well controlled. 6. LDL goal is < 55. LDL is 109. On Lipitor 80 mg daily. 7. aggressive risk factor modifications. 8. Echo is pending. prelim EF is normal. 9. pt is stable for discharge home today from a cardiac stand point per Dr. Negron as long as he is on DAPT and anti-anginals and PPI. 10. f/u in 1 week in outpatient clinic. Thank you for the opportunity to help participate in the care of this patient.
--- NOTE | 2019-05-19 10:40 | Discharge Summary ---
General - General Admission date:: 05/16/19 Discharge date: 05/17/19 HPI HPI: Mr. Stover is a 64 yo WM with a history of psoriasis, hiatal hernia, esophageal reflux, and right hip fracture who presented to [facility] emergency room after experiencing substernal chest pain without radiation while mowing his yard. He had mild shortness of breath, nausea, and diaphoresis that did not resolve with rest, aspirin or antiacids. Thus he presented to the emergency room for evaluation. Initial EKG showed sinus rhythm with anterior lateral ST segment depression that resolved after 3 nitroglycerin. Cardiology was consulted for evaluation /recommendations after which patient did again begin to have chest pain that responded again to sublingual nitroglycerin. He was taken directly to the [facility] and had 5 stents placed. Troponin was noted at 0.91. At the time of this exam patient appears comfortable and is eating his dinner with family at bedside. He denies chest pain and shortness of breath. Hospital Course Hospital Course: The patient did well after stent placement. It was recommended by cardiology that he remain on Brilinta and aspirin for 1 year and undergo cardiac rehabilit ation. An echo was ordered. The official result is still pending at this time although preliminary showed an EF of over 50%. The patient did well overnight and was eating without difficulty. He denied any chest pain or shortness of breath and was ambulating around his room. He wanted to go home. He was stable to be discharged home and follow-up with cardiology in [address] Tijerina in 2 weeks Objective Vital signs: Temp Pulse Resp BP Pulse Ox 98.0 F 70 16 113/68 97 05/17/19 00:00 05/17/19 16:00 05/17/19 14:00 05/17/19 14:00 05/17/19 14:00 Narrative: - Constitutional no acute distress Comments: Lying in bed eating his dinner with family at bedside - *Routine HEENT Exam Head: Present: normocephalic, atraumatic Eye: Present: PERRL. Absent: conjunctival icterus, scleral injection, conjunctivae pink ENT: Present: mucous membranes moist - *Routine Neck Exam Present: supple. Absent: carotid bruit, lymphadenopathy, thyromegaly - *Routine Respiratory Exam Present: CTA bilaterally (Anteriorly and posteriorly) - *Routine Cardiovascular Exam Present: RRR Comments: Sinus rhythm on monitor - *Routine Abdominal Exam Present: soft, normoactive bowel sounds. Absent: tenderness - *Routine Extremities Exam Absent: edema, calf tenderness - *Routine Skin Exam Present: dry, warm Comments: Color is good - *Routine Neurological Exam Present: alert, oriented X3 DS: Diagnosis - Discharge Diagnosis (1) Non-ST elevated myocardial infarction Status: Acute (2) CAD (coronary artery disease) Status: Chronic (3) Acute coronary syndrome Status: Acute (4) Quit using tobacco in remote past Status: Acute (5) Arthritis Status: Acute (6) FH ischemic heart disease Status: Acute (7) S/P coronary artery stent placement Status: Acute (8) GERD (gastroesophageal reflux disease) Status: Chronic (9) Hiatal hernia Status: Chronic Discharge Plan - Patient Discharge Instructions ACTIVITY: Continue current activity DIET: continue same diet Patient Instructions: DI for Acute Coronary Syndrome, Heart-Healthy Diet, DI for Angina, DI for Cardiac Catheterization, DI for Surgical Site Infection Forms: [facility] Work Release - Follow up Plan Follow up with: Star Tijerina MD [Primary Care Provider] - 2 weeks Berry Negron MD [Staff Physician] - 1 week Disposition: Home, Self-Fci Medications: Home Medications Medication Instructions Recorded Confirmed Type Celecoxib 200 mg PO DAILY 05/16/19 05/16/19 History Pantoprazole Sodium [Protonix 40mg 40 mg PO DAILY 05/16/19 05/16/19 History tablet] Aspirin [Aspirin 81mg EC Tab] 81 mg PO DAILY #30 tablet. 05/17/19 Rx Atorvastatin Calcium [Atorvastatin 80 mg PO HS #30 tab 05/17/19 Rx 80mg Tab] Isosorbide Mononitrate [Imdur 30mg 30 mg PO DAILY #30 tab.er.24h 05/17/19 Rx ER tablet] Lisinopril [Lisinopril 5mg 5 mg PO DAILY #30 tab 05/17/19 Rx Tablet] Metoprolol Succinate 25 mg PO DAILY #30 tab.er.24h 05/17/19 Rx Ranolazine [Ranexa 500mg ER tablet] 500 mg PO BID #60 tab.er.12h 05/17/19 Rx Ticagrelor [Brilinta 90mg Tablet] 90 mg PO BID #60 tab 05/17/19 Rx nitroglycerin 0.4 mg sublingual 0.4 mg SUBLINGUAL Q5-15M PRN #20 05/18/19 Rx tablet tab Prescriptions/Medication Reconciliation: New Aspirin [Aspirin 81mg EC Tab] 81 mg PO DAILY #30 tablet. Atorvastatin Calcium [Atorvastatin 80mg Tab] 80 mg PO HS #30 tab Ticagrelor [Brilinta 90mg Tablet] 90 mg PO BID #60 tab Isosorbide Mononitrate [Imdur 30mg ER tablet] 30 mg PO DAILY #30 tab.er.24h Lisinopril [Lisinopril 5mg Tablet] 5 mg PO DAILY #30 tab Ranolazine [Ranexa 500mg ER tablet] 500 mg PO BID #60 tab.er.12h Metoprolol Succinate 25 mg PO DAILY #30 tab.er.24h Continued Celecoxib 200 mg PO DAILY Pantoprazole Sodium [Protonix 40mg tablet] 40 mg PO DAILY No Action nitroglycerin 0.4 mg sublingual tablet 0.4 mg SUBLINGUAL Q5-15M PRN #20 tab PRN Reason: chest pain - Problem Reconciliation Problems Reviewed?: Yes
== END 2019-05-17 18:30 | disposition home or self-care (01) ==
LOC: ER 11:11 → 2ND 11:11 → ICU 15:38
PROVIDERS: ADMIT Family Medicine; ATTEND Family Medicine
CPT/HCPCS: 36415; 71010; 71045; 80048; 80061; 84484; 85025; 85347; 92928; 92929; 92941; 93005; 93306; 93458; 99152; 99153; 99283; C1725; C1769; C1876; C9600; C9601; C9606; G0378; J1644; J2405; Q9967

== ENCOUNTER → 2019-05-24 08:08 | Outpatient (CLI) | payer BC, SELFPAY ==
[2019-05-24 08:22] LABS: Hematocrit 46.4 % (42.0-52.0); Hemoglobin 15.6 g/dL (14.1-18.0)
[2019-05-24 08:28] LABS: Blood Urea Nitrogen 12 mg/dL (7-18); Creatinine,Serum 1.02 mg/dL (0.70-1.30); Estimated Glomerular Filt Rate 74 ml/min (>60); GFR (African American) 89 ML/MIN (>60)
[2019-05-24 13:36] LABS: Anion Gap 13.9 mEq/L (5-15); Blood Urea Nitrogen 11 mg/dL (7-18); Calcium 8.5 mg/dL (8.5-10.1); Carbon Dioxide 27 mmol/L (21.0-32.0); Chloride 104 mmol/L (98-107); Creatinine,Serum 1.01 mg/dL (0.70-1.30); Estimated Glomerular Filt Rate 74 ml/min (>60); GFR (African American) 90 ML/MIN (>60); Glucose 116 mg/dL (74-106); Magnesium 1.8 mg/dL (1.4-2.2); Potassium 4.9 mmoL/L (3.5-5.1); Sodium 140 mmol/L (136-145)
== END ==
PROVIDERS: Physician Assistant; Visit Provider Internal Medicine
DX: E78.5 Hyperlipidemia, unspecified (principal); I10 Essential (primary) hypertension; I21.4 Non-ST elevation (NSTEMI) myocardial infarction; I25.10 Atherosclerotic heart disease of native coronary artery without angina pectoris; K21.9 Gastro-esophageal reflux disease without esophagitis; Z95.5 Presence of coronary angioplasty implant and graft
CPT/HCPCS: 36415; 80048; 82565; 83735; 84520; 85014; 85018

== ENCOUNTER 2019-06-06 12:46 | Outpatient (RCR) | payer BC, SELFPAY | END 2019-08-21 13:23 | disposition home or self-care (01) | LOC: PT 12:46 | PROVIDERS: Visit Provider Internal Medicine | DX: Z95.5 Presence of coronary angioplasty implant and graft (principal) | CPT/HCPCS: 93798 ==

== ENCOUNTER → 2020-09-13 08:45 | Outpatient (CLI) | payer MEDICARE, SELFPAY ==
--- NOTE | 2020-09-13 08:49 | CA_ITS ---
APPROVED REPORT EXAM: Comprehensive 2D, Doppler, and color-flow Echocardiogram [employer] Operator: Keesha Stevenson RVT Ht: 5 ft 8 in Wt: 227lbs BSA: 2.16 BP: 173/92 mmHg Indications: SOA,CAD,HTN,HLD,STENT,GERD,EX SMOKER 2D Dimensions LVOT 2.20 cm (M/F) 1.5-2.5 M-Mode Dimensions RVDd 2.58 cm (0.9-2.6) LA Diam 5.16 cm (1.9-4.0) LVDd 6.01 cm (3.5-5.7) Ao Diam 2.83 cm (2.0-3.7) LVDs 4.09 cm (3.5-5.7) IVSd 0.67 cm (0.6-1.1) PWd 0.89 cm (0.6-1.1) EF (Teich) 59.20% FS 31.90% EDV (Teich) 180.70 mL ESV (Teich) 73.80 mL LV Diastology E Decel Time 197.00 (160-240 msec) E/A Ratio 0.7 MED E' 7.00 (< 7 cm/sec) E'/MED E' Ratio 7.77 (>14) LAT E' 8.90 (<10 cm/sec) E/LAT E' Ratio 6.11 (>14) Mitral Valve MV E Max Inocente. 54.00 (40-130 cm/s) MV A Velocity 77.00 (40-130 cm/s) E/A Ratio 0.70 MV Decel. Time 197.00 (160-240 ms) MV PHT 58.00 ms Pulmonary Valve PV Peak Velocity 72.00 (50-150 cm/s) Tricuspid Valve TR P. Velocity 262.00 cm/s RAP Estimate 10.00 mmHg RVSP 37.40 mmHg Left Ventricle Left atrium is mildly enlarged, left ventricle is normal size, mild concentric left ventricular hypertrophy, visually estimated ejection fraction 55% with no regional wall motion abnormality. Grade 1 diastolic dysfunction seen without tissue Doppler evidence of raise left atrial pressure. Right Ventricle Right atrium and right ventricle are normal size and contractility. Aortic Valve Aortic valve is minimally thickened and fibrosed, Mitral Valve Mitral valve is grossly normal, there is mild mitral regurgitation. Tricuspid Valve Tricuspid valve is grossly normal, there is mild tricuspid regurgitation, tricuspid regurgitation jet velocity is inadequate for calculation of the right ventricular systolic pressure. Pulmonic Valve Pulmonic valve is poorly visualized. Great Vessels Aortic root is normal size. Pericardium No significant pericardial effusion noted. Conclusion 1. Mildly enlarged left atrium, normal left ventricular size, mild concentric left ventricular hypertrophy, visually estimated ejection fraction 55% with no regional wall motion abnormality, grade 1 diastolic dysfunction seen without tissue Doppler evidence of raise left atrial pressure. Endocardial surfaces are poorly visualized. 2. Mild mitral and tricuspid regurgitation. 3. No significant pericardial effusion noted. Electronically signed by : Stewart Jung, 09/13/2020 12:58:52
== END ==
PROVIDERS: Visit Provider Urology
DX: E78.2 Mixed hyperlipidemia (principal); I10 Essential (primary) hypertension; I25.10 Atherosclerotic heart disease of native coronary artery without angina pectoris; Z95.5 Presence of coronary angioplasty implant and graft; R94.31 Abnormal electrocardiogram [ECG] [EKG]
CPT/HCPCS: 93306

== ENCOUNTER → 2020-12-09 09:03 | Outpatient (CLI) | payer MEDICARE, OTHER, SELFPAY ==
[2020-12-09 10:06] LABS: Chloride 105 mmol/L (98-107); Sodium 140 mmol/L (136-145)
[2020-12-09 10:08] LABS: Bilirubin,Unconjugated 0.7 mg/dL (0.0-1.1); Blood Urea Nitrogen 24 mg/dl (9-20); Estimated Glomerular Filt Rate 67 ml/min (>60); GFR (African American) 81 ML/MIN (>60)
[2020-12-09 10:09] LABS: Alanine Aminotransferase 34 U/L (12-78); Albumin Level 4.2 g/dl (3.5-5.0); Alkaline Phosphatase 130 U/L (38-126); Aspartate Amino Transferase 31 U/L (17-59); Bilirubin,Direct 0.1 mg/dl (0.0-0.4); Bilirubin,Indirect 0.7 mg/dL (0.0-0.9); Bilirubin,Total 0.8 mg/dl (0.2-1.3); Calcium 9.3 mg/dl (8.4-10.2); Carbon Dioxide 30 mmol/L (22.0-30.0); Cholesterol 175 mg/dl (140-200); Glucose 140 mg/dl (74-100); HDL Cholesterol 44 mg/dl (40-60); Total Protein,Serum 7.4 g/dl (6.3-8.2); Triglycerides 159 mg/dl (30-150); VLDL Cholesterol 32 mg/dL (0-40)
[2020-12-09 10:21] LABS: Direct LDL Cholesterol 88.73 mg/dL (100-129)
== END ==
PROVIDERS: Visit Provider Urology
DX: E78.2 Mixed hyperlipidemia (principal); I25.10 Atherosclerotic heart disease of native coronary artery without angina pectoris; K21.9 Gastro-esophageal reflux disease without esophagitis; R06.09 Other forms of dyspnea; Z95.5 Presence of coronary angioplasty implant and graft; I11.9 Hypertensive heart disease without heart failure
CPT/HCPCS: 36415; 80048; 80061; 80076

== ENCOUNTER → 2021-06-18 07:02 | Outpatient (CLI) | payer MEDICARE, OTHER, SELFPAY ==
[2021-06-18 07:43] LABS: Basophils # 0.1 K/mm3 (0-0.2); Eosinophils # 0.3 K/mm3 (0.0-0.4); Eosinophils % 3.5 % (0.1-12.0); Hematocrit 42.5 % (42.0-52.0); Hemoglobin 14.5 g/dL (14.1-18.0); Lymphocytes # 2.5 K/mm3 (0.7-4.5); Mean Corpuscular HGB Conc 34.1 g/dL (31.8-35.4); Mean Corpuscular Hemoglobin 31.1 pg (27.0-31.2); Mean Corpuscular Volume 91.2 fl (80-94); Mean Platelet Volume 8.6 fl (7.4-10.4); Monocytes # 0.6 K/mm3 (0.1-1.0); Monocytes % 6.4 % (1.7-9.3); Neutrophils # 5.2 K/mm3 (1.8-7.8); Neutrophils % 60.1 % (37.0-80.0); Platelet Count 263 K/mm3 (142-424); Red Blood Count 4.66 M/mm3 (4.60-6.20); Red Cell Distribution Width 13.7 % (11.5-17.5); White Blood Count 8.6 K/mm3 (4.8-10.8)
[2021-06-18 08:54] LABS: Alanine Aminotransferase 26 U/L (12-78); Albumin/Globulin Ratio 1.3 (1.1-1.8); Alkaline Phosphatase 118 U/L (38-126); Anion Gap 13.2 mEq/L (5-15); Aspartate Amino Transferase 32 U/L (17-59); Bilirubin,Total 0.6 mg/dl (0.2-1.3); Blood Urea Nitrogen 20 mg/dl (9-20); Calcium 8.5 mg/dl (8.4-10.2); Carbon Dioxide 30 mmol/L (22.0-30.0); Chloride 102 mmol/L (98-107); Chol/HDL Ratio 4.4 (1-3.5); Cholesterol 173 mg/dl (140-200); Estimated Glomerular Filt Rate 67 ml/min (>60); GFR (African American) 81 ML/MIN (>60); Glucose 110 mg/dl (74-100); HDL Cholesterol 39 mg/dl (40-60); Potassium 4.2 mmoL/L (3.5-5.1); Sodium 141 mmol/L (136-145); Triglycerides 236 mg/dl (30-150); VLDL Cholesterol 47 mg/dL (0-40)
[2021-06-18 09:06] LABS: Direct LDL Cholesterol 89.08 mg/dL (100-129)
[2021-06-18 09:25] LABS: Thyroid Stimulating Hormone 2.84 uIU/mL (0.465-4.68)
== END ==
PROVIDERS: Visit Provider Family Medicine
DX: I10 Essential (primary) hypertension (principal); E78.2 Mixed hyperlipidemia
CPT/HCPCS: 36415; 80053; 80061; 84443; 84550; 85025

== ENCOUNTER → 2022-11-20 14:32 | Outpatient (CLI) | payer MEDICARE, OTHER, SELFPAY ==
--- NOTE | 2022-11-20 14:38 | CA_ITS ---
APPROVED REPORT EXAM: Comprehensive 2D, Doppler, and color-flow Echocardiogram Pile Header: Yesy Cartwright RDCS Ht: 5 ft 8 in Wt: 218lbs BSA: 2.12 BP: 146/78 mmHg Indications: SOA,CAD 2D Dimensions LVOT 2.15 cm (M/F) 1.5-2.5 M-Mode Dimensions RVDd 2.70 cm (0.9-2.6) LA Diam 4.36 cm (1.9-4.0) LVDd 5.03 cm (3.5-5.7) Ao Diam 3.43 cm (2.0-3.7) LVDs 3.22 cm (3.5-5.7) IVSd 0.80 cm (0.6-1.1) PWd 0.89 cm (0.6-1.1) EF (Teich) 65.30% FS 36.00% EDV (Teich) 119.90 mL ESV (Teich) 41.60 mL LV Diastology E Decel Time 227.00 (160-240 msec) E/A Ratio 1.1 MED E' 7.60 (< 7 cm/sec) E'/MED E' Ratio 8.80 (>14) LAT E' 8.60 (<10 cm/sec) E/LAT E' Ratio 7.78 (>14) Mitral Valve MV E Max Inocente. 67.00 (40-130 cm/s) MV A Velocity 63.00 (40-130 cm/s) E/A Ratio 1.07 MV Decel. Time 227.00 (160-240 ms) MV PHT 66.00 ms Tricuspid Valve TR P. Velocity 261.00 cm/s RAP Estimate 10.00 mmHg RVSP 37.20 mmHg Left Ventricle Left atrium is mildly enlarged, left ventricular normal size, estimated ejection fraction 55% with no regional wall motion abnormality, diastolic parameters are inconclusive. Right Ventricle Right atrium and right ventricle are mildly enlarged with normal contractility. Aortic Valve Aortic valve is minimally thickened and calcified without aortic stenosis aortic insufficiency. Mitral Valve Mitral valve is grossly normal. There is trace mitral regurgitation. Tricuspid Valve Tricuspid grossly normal, there is trace tricuspid regurgitation, calculated right ventricular systolic pressure 37 mmHg. Pulmonic Valve Pulmonic valve is poorly visualized. Great Vessels Aortic root is normal size. Inferior vena cava is normal size with normal inspiratory collapse. Pericardium No significant pericardial effusion noted. Conclusion 1. Mild biatrial enlargement, normal left ventricular size, estimated ejection fraction 55% with no regional wall motion abnormality, diastolic parameters are inconclusive. 2. Mildly enlarged right ventricle with normal contractility. 3. Trace mitral and tricuspid regurgitation. Calculated right ventricular systolic pressure 37 mmHg. 4. No significant pericardial effusion noted. 5. Inferior vena cava is normal size with normal inspiratory collapse. Electronically signed by : Stewart Jung MD 11/20/2022 15:53:22
== END ==
PROVIDERS: PCP Family Medicine; Visit Provider Nurse Practitioner Family
DX: E78.2 Mixed hyperlipidemia (principal); I10 Essential (primary) hypertension; I25.10 Atherosclerotic heart disease of native coronary artery without angina pectoris; Z95.5 Presence of coronary angioplasty implant and graft
CPT/HCPCS: 93306

== ENCOUNTER → 2023-06-01 08:22 | Outpatient (CLI) | payer MEDICARE, OTHER, SELFPAY ==
[2023-06-01 10:08] LABS: Alanine Aminotransferase 29 U/L (12-78); Albumin Level 3.6 g/dl (3.5-5.0); Alkaline Phosphatase 141 U/L (38-126); Aspartate Amino Transferase 29 U/L (17-59); Bilirubin,Direct 0.2 mg/dl (0.0-0.4); Bilirubin,Indirect 0.6 mg/dL (0.0-0.9); Bilirubin,Total 0.8 mg/dl (0.2-1.3); Bilirubin,Unconjugated 0.5 mg/dL (0.0-1.1); Chol/HDL Ratio 3.7 (1-3.5); Cholesterol 141 mg/dl (140-200); HDL Cholesterol 38 mg/dl (40-60); Total Protein,Serum 6.5 g/dl (6.3-8.2); Triglycerides 102 mg/dl (30-150); VLDL Cholesterol 20 mg/dL (0-40)
[2023-06-01 10:20] LABS: Direct LDL Cholesterol 71.51 mg/dL (100-129)
[2023-06-01 10:27] LABS: MANUAL DIFFERENTIAL MANUAL DIFFERENTIAL (MANUAL DIFF)
[2023-06-01 10:39] LABS: Basophils % 0.4 % (0.1-2.0); Eosinophils # 0.3 K/mm3 (0.0-0.4); Eosinophils % 3.4 % (0.1-12.0); Hematocrit 45.8 % (42.0-52.0); Hemoglobin 15.1 g/dL (14.1-18.0); Lymphocytes # 1.5 K/mm3 (0.7-4.5); Lymphocytes % 20.7 % (10-50); Mean Corpuscular HGB Conc 33.1 g/dL (31.8-35.4); Mean Corpuscular Hemoglobin 29.9 pg (27.0-31.2); Mean Corpuscular Volume 90.2 fl (80-94); Mean Platelet Volume 8.6 fl (7.4-10.4); Monocytes # 0.5 K/mm3 (0.1-1.0); Monocytes % 7.2 % (1.7-9.3); Neutrophils % 68.2 % (37.0-80.0); Platelet Count 237 K/mm3 (142-424); Red Blood Count 5.07 M/mm3 (4.60-6.20); Red Cell Distribution Width 13.5 % (11.5-17.5); White Blood Count 7.3 K/mm3 (4.8-10.8)
[2023-06-01 10:55] LABS: Free Thyroxine Index 2.4 ug/dL (5.93-13.13); Triiodothryronine (T3) Uptake 34 % (23.5-40.5)
[2023-06-01 11:12] LABS: Eosinophils % 3 % (0-3); Lymphocytes % 30 % (10-50); Monocytes % 3 % (2-9); Neutrophils % 64 % (42-76); Platelet Estimate Normal; RBC Morphology Normal; Total Cells Counted 100
[2023-06-01 11:25] LABS: Thyroid Stimulating Hormone 2.79 uIU/mL (0.465-4.68)
[2023-06-01 13:19] LABS: Chloride 107 mmol/L (98-107); Potassium 4.2 mmoL/L (3.5-5.1); Sodium 143 mmol/L (136-145)
[2023-06-01 13:22] LABS: Blood Urea Nitrogen 20 mg/dl (9-20); Estimated Glomerular Filt Rate 67 ml/min (>60); GFR (African American) 81 ML/MIN (>60)
[2023-06-01 13:23] LABS: Anion Gap 15.2 mEq/L (5-15); Calcium 8.9 mg/dl (8.4-10.2); Carbon Dioxide 25 mmol/L (22.0-30.0); Glucose 100 mg/dl (74-100)
== END ==
PROVIDERS: Physician Assistant; PCP Family Medicine; Visit Provider Nurse Practitioner Family
DX: I10 Essential (primary) hypertension (principal); I25.10 Atherosclerotic heart disease of native coronary artery without angina pectoris; E78.5 Hyperlipidemia, unspecified; I51.89 Other ill-defined heart diseases; Z95.5 Presence of coronary angioplasty implant and graft
CPT/HCPCS: 36415; 80048; 80061; 80076; 84436; 84443; 84479; 85007; 85014; 85018; 85048; 85049

== ENCOUNTER 2025-03-21 08:19 | Outpatient (CLI) | payer MEDICARE, SELFPAY ==
--- OUTSIDE RECORDS SUMMARY | 2025-03-21 08:23 | XMS_ITS | Clinical Summary ---
Author Organization [facility] Address [address] [place] [address] Phone CareEverywhereSuppor Care Team Providers Care Blood Bank Technician Name Role Phone Reymundo Morgan Primary Care Provider Unavailabl e Allergies Active Allergy Reactions Criticality Noted Date Comments Bacitracin 12/30/2018 Hydrocortisone 12/30/2018 Medications celecoxib (CeleBREX) 200 MG capsule 10/19/2018 Active pantoprazole (PROTONIX) 40 MG EC tablet 10/17/2018 Active EQ ASPIRIN ADULT LOW DOSE 81 MG EC tablet Take 81 mg by mouth 1 (one) time each day. 11 06/11/2019 Active atorvastatin (LIPITOR) 80 MG tablet Take 80 mg by mouth every night. 06/11/2019 Active metoprolol succinate XL (TOPROL-XL) 25 MG 24 hr tablet Take 25 mg by mouth 1 (one) time each day. 06/11/2019 Active losartan (COZAAR) 50 MG tablet Take 50 mg by mouth 1 (one) time each day. 5 06/16/2019 Active lisinopril (ZESTRIL) 5 MG tablet Take 5 mg by mouth 1 (one) time each day. 06/11/2019 Active nitroglycerin (NITROSTAT) 0.4 MG SL tablet DISSOLVE ONE TABLET UNDER THE TONGUE EVERY 5 TO 15 MINUTES NEEDED FOR CHEST PAIN UNTIL RESPONSE. DO NOT EXCEED A TOTAL OF 3 DOSES IN 15 M 0 05/18/2019 Active BRILINTA 90 MG tablet 06/11/2019 Active Active Problems Problem Noted Date Diagnosed Date Coronary artery disease 06/20/2019 History of coronary artery stent placement 06/20 Pain in joint involving other specified sites Overview (02/23/2018): Pain in joint, lower leg 05/07/2009 Overview (02/23/2018): Other examination of ears and hearing 02/13/2008 Overview (02/23/2018): Social History Tobacco Use Types Packs/Day Years Used Date Smoking Tobacco: Former Cigarettes Q uit: 1987 Smokeless Tobacco: Never Alcohol Use Standard Drinks/Week Comments No 0 (1 standard drink = 0.6 oz pur e alcohol) Sex and Gender Information Value Date Recorded Sex Assigned at Not on file Legal Sex Male 9:36 AM CDT Gender Identity Not on file Sexual Orientation Not on file Last Filed Vital Signs Vital Sign Reading Time Taken Comments Blood Pressure 128/76 06/20/2019 3:47 PM EDT Pulse 76 06/20/2019 3:47 PM EDT Temperature 36.4 C (97.6 F) 06/20/2019 3:47 PM EDT Respiratory Rate 14 06/20/2019 3:47 PM EDT Oxygen Saturation 98% 06/20/2019 3:47 PM EDT Inhaled Oxygen Concentration - - Weight 97.3 kg (214 lb 8 oz) 06/04/2017 2:41 PM CDT Height 172.7 cm (5' 8 ) 06/04/2017 2:41 PM CDT Body Mass Index 32.61 06/04/2017 2:41 PM CDT Plan of Treatment Health Maintenance Due Date Last Done Comments Dental Cleaning/Exam 1955 Tetanus Diphtheria and Pertu ssis Immunization (1 - Tdap) 1974 Colorectal Cancer Screening 1985 Pneumococcal: 65+ Years (1 o f 1 - PCV) 2005 Zoster Immunization (1 of 2) 2005 Covid-19 Immunization (1 - 2 25 season) 2024 Influenza Immunization (Seas on Ended) 2025 HIB Immunization Aged Out No longer e ligible based on patient's age to complete this topic HPV Immunization Aged Out No longer e ligible based on patient's age to complete this topic Hepatitis A Immunization Aged Out No longer eligible based on patient's age to complete this topic Hepatitis B Immunization Aged Out No longer eligible based on patient's age to complete this topic Polio Immunization Aged Out No longer eligible based on patient's age to complete this topic Insurance [place] 5 Care Teams Blood Bank Technician Relationship Specialty Start Date End Date Reymundo Morgan PCP - General 06/20/19
--- OUTSIDE RECORDS SUMMARY | 2025-03-21 08:23 | XMS_ITS ---
Author Organization Unknown TREATMENT PLAN [facility] Start Date Provider Encounter for Check-up [phone] [facility]
--- OUTSIDE RECORDS SUMMARY | 2025-03-21 08:23 | XMS_ITS | Clinical Summary ---
Author Organization Healthcare Address [address] [place] [address] Care Team Providers Care Postal Service Sectional Center Manager Name Role Phone Star Tijerina MD Primary Care Provider [phone] Social History Tobacco Use Types Packs/Day Years Used Date Smoking Tobacco: Former Sex and Gender Information Value Date Recorded Sex Assigned at Not on file Legal Sex Male 6:41 PM EDT Gender Identity Not on file Sexual Orientation Not on file Last Filed Vital Signs Vital Sign Reading Time Taken Comments Blood Pressure 143/89 10/25/2018 9:41 AM EST Pulse 67 10/25/2018 9:41 AM EST Temperature 36.9 C (98.4 F) 03/15/2018 8:22 AM EDT Respiratory Rate - - Oxygen Saturation - - Inhaled Oxygen Concentration - - Weight 94.4 kg (208 lb 1.8 oz) 10/25/2018 9:41 A M EST Height 172.7 cm (5' 8 ) 10/25/2018 9:41 AM EST Body Mass Index 31.64 10/25/2018 9:41 AM EST Plan of Treatment Health Maintenance Due Date Last Done Comments [facility]-Depression Screening 1955 [facility]-Infant/Child/Adol SDOH Screenings 1955 [facility]- SDOH Screenings 1973 [facility]-Adult SDOH Screenings 1973 [facility]-DTaP,Tdap,and Td Vaccine s (1 - Tdap) 1974 CT Colonography 2000 Colonoscopy 2000 FIT-DNA 2000 FIT 2000 FOBT 2000 Sigmoidoscopy 2000 [facility]-Colorectal Cancer Screening 2000 [facility]-Pneumococcal Vaccine: 50 + Years (1 of 1 - PCV) 2005 [facility]-Zoster Vaccines (1 of 2) 2005 [id number] Vaccine (1 - 20 24-25 season) 2024 [facility]-Influenza Vaccine (Seaso n Ended) 2025 [facility]-RSV Vaccine: 60+ Years o r (1 - 1-dose 75+ series) 2030 HPV Vaccines Aged Out No longer eligi ble based on patient's age to complete this topic [facility]-HIB Vaccines Aged Out No longer e ligible based on patient's age to complete this topic [facility]-Hepatitis A Vaccines Aged Out No longer eligible based on patient's age to complete this topic [facility]-IPV Vaccines Aged Out No longer e ligible based on patient's age to complete this topic [facility]-Rotavirus Vaccines Aged Out No lo nger eligible based on patient's age to complete this topic Care Teams Postal Service Sectional Center Manager Relationship Specialty Start Date End Date Star Tijerina MD [facility] [address] [address] PCP - General 02/07/21
[2025-03-21 09:01] LABS: Basophils # 0.1 K/mm3 (0-0.2); Basophils % 0.8 % (0.1-2.0); Eosinophils # 0.2 Kmm3 (0.0-0.4); Hematocrit 43.8 % (42.0-52.0); Hemoglobin 14.8 g/dL (14.1-18.0); Immature Granulocytes # 0.02 10^3uL; Immature Granulocytes % 0.3 %; Lymphocytes # 1.6 K/mm3 (0.7-4.5); Lymphocytes % 21.2 % (10-50); Mean Corpuscular HGB Conc 33.8 g/dL (31.8-35.4); Mean Corpuscular Hemoglobin 30.3 pg (27.0-31.2); Mean Corpuscular Volume 89.6 fl (80-94); Mean Platelet Volume 10.3 fl (7.4-10.4); Monocytes # 0.7 K/mm3 (0.1-1.0); Monocytes % 9.2 % (1.7-9.3); Neutrophils % 65.5 % (37.0-80.0); Nucleated Red Blood Cells # 0 10^3/uL; Nucleated Red Blood Cells % 0 %; Platelet Count 248 K/mm3 (142-424); Red Blood Count 4.89 M/mm3 (4.60-6.20); Red Cell Distribution Width 12.9 % (11.5-17.5); Red Cell Distribution Width-SD 41.8 fL; White Blood Count 7.6 K/mm3 (4.8-10.8)
[2025-03-21 10:33] LABS: Alanine Aminotransferase 25 U/L (12-78); Albumin Level 3.9 g/dl (3.5-5.0); Albumin/Globulin Ratio 1.4 (1.1-1.8); Alkaline Phosphatase 125 U/L (38-126); Anion Gap 13.4 mEq/L (5-15); Aspartate Amino Transferase 30 U/L (17-59); Blood Urea Nitrogen 26 mg/dl (9-20); Calcium 9.5 mg/dl (8.4-10.2); Carbon Dioxide 30 mmol/L (22.0-30.0); Chloride 99 mmol/L (98-107); Chol/HDL Ratio 3.3 (1-3.5); Cholesterol 129 mg/dl (140-200); Estimated Glomerular Filt Rate 55 ml/min (>60); GFR (African American) 66 ML/MIN (>60); Globulin 2.8 g/dL (1.3-3.2); Glucose 117 mg/dl (74-100); HDL Cholesterol 39 mg/dl (40-60); Potassium 4.4 mmoL/L (3.5-5.1); Sodium 138 mmol/L (136-145); Total Protein,Serum 6.7 g/dl (6.3-8.2); Triglycerides 86 mg/dl (30-150); VLDL Cholesterol 17 mg/dL (0-40)
[2025-03-21 10:44] LABS: Direct LDL Cholesterol 59.93 mg/dL (100-129)
[2025-03-21 11:06] LABS: Prostate Specific Ag Screen 0.4 ng/ml (0.0-4.0); Thyroid Stimulating Hormone 1.65 uIU/mL (0.465-4.68)
[2025-03-21 11:35] LABS: Microalbumin/Creatinine Ratio 5.1
[2025-03-21 11:43] LABS: Creatinine,Urine Random 205 mg/dL (Not Estab.)
== END 2025-03-21 23:59 | disposition home or self-care (01) ==
LOC: LAB 08:20
PROVIDERS: PCP Family Medicine; Visit Provider Family Medicine
DX: E78.2 Mixed hyperlipidemia (principal); I10 Essential (primary) hypertension; Z12.5 Encounter for screening for malignant neoplasm of prostate
CPT/HCPCS: 36415; 80053; 80061; 82043; 82570; 84443; 85025; G0103

== ENCOUNTER 2025-05-29 06:51 | Outpatient (CLI) | payer MEDICARE, SELFPAY ==
--- OUTSIDE RECORDS SUMMARY | 2024-03-21 06:00 | XMS_ITS ---
Author Organization [facility] Address [address] [facility] [address] [place] [id number] Care Team Providers Care User Interface Engineer Name Role Phone Star Tijerina Primary Care Provider [phone] Allergies No Known Allergies Results Component Value [...] day; Duration: 90 days Active Vital Signs Weight 226 lbs 03/21/2024 Blood pressure systolic 130 mm Hg 03/21/20 24 Blood pressure diastolic 70 mm Hg 024 Heart Rate 56 /min 03/21/2024 Height 68 in 03/21/2024 BMI 34.36 kg/m2 03/21/2024 Encounters Encounter Location Date Provider Diagnosis [facility] [address] [place] [id number] 03/21/2024 Star Tijerina 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 Z02.4 Assessments Encounter Date Diagnosis (ICD Code) Assessment Notes Treatment Notes Treatment Clinical Notes Section Notes 03/21/2024 Encounter for Department of Transportation (DOT) examination for deny license (ICD-10 - Z02.4) Plan Of Treatment Next Appt Details Follow Up: prn, Reason: Provider Name:Star padilla, 06/05/2025 09:30:00 AM, [address], [place], [id number], Provider Name:Star padilla, 09/17/2025 09:45:00 AM, [address], [place], [id number], Progress Notes * HALIMA PanchitoPjOB:1955 (70 yo M)Acc No.[id number]:03/21/2024 Physical Patient: Zuhair LAMB Provider: Chepe Tijerina M.D. 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 Patient saw cardiology at [facility] yesterday for his 6 months follow up [...] affeine: yes, frequency:. Marital Status: . Occupation: [employer], [employer]. Past smoking status: no, quit smoking 1982 after smoking 22 yrs. Alcohol: no. * [...] Procedure Codes: 8 1002 Urinalysis, no micro, 50358 VISUAL ACUITY SCREEN * Follow Up: p rn * Images: Billing Information: * Visit Code: 25872 Preventive Care Est Pt. Age 65 and over. * Procedure Codes: 15079 Urinalysis, no micro. 38644 VISUAL ACUITY SCREEN. * Electronic signature of Shelby Tijerina MD on 05/29/2025 at 06:54 AM EDT Sign off status: Pending * Provider: Chepe Tijerina M.D. 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 Patient saw cardiology at [facility] yesterday for his 6 months follow up [...]
--- OUTSIDE RECORDS SUMMARY | 2025-02-02 07:15 | XMS_ITS ---
Author Organization [facility] Address [address] [facility] [address] [place] [phone] Care Team Providers Care Threat Monitoring Analyst Name Role Phone Star Tijerina Primary Care [...] 02/02/2025 Encounters Encounter Location Date Provider Diagnosis [facility] [address] [place] [phone] 02/02/2025 Star Tijerina Encounter for Depart ment [...] [address], [place], [id number], Provider Name:Star padilla, 09/17/2025 09:45:00 AM, [address], [place], [phone], Progress Notes * Chad STOVEREllieOB:1955 (70 yo M)Acc No.[id number]:02/02/2025 Physical Patient: Zuhair LAMB Provider: Chepe Tijerina M.D. :1955 A ge:69 Y S ex:Male Date:02/02/2025 Address:[address] [place] [address], [place] Subjective: * Chief Complaints: * 1 . [...] 04/2019, CAD, 04/2019. * Surgical History: Sharon Granado 03/04/2017, RT Hip Replacement 07/2017, Cardiac [...] affeine: yes, frequency:. Marital Status: . Occupation: [employer], [employer]. Past smoking status: no, quit smoking 1983 [...] Procedure Codes: 8 1002 Urinalysis, no micro, 90785 VISUAL ACUITY SCREEN * Follow Up: p rn * Images: Billing Information: * Visit Code: 57190 Preventive Care Est Pt. Age 65 and over. * Procedure Codes: 71029 Urinalysis, no micro. 62566 VISUAL ACUITY SCREEN. * Electronic signature of Shelby Tijerina MD on 05/29/2025 at 06:55 AM EDT Sign off status: Pending * Provider: Chepe Tijerina M.D. Date: 0 02/02/2025 Generated for Kristine farias/Charmaine/Breannasmitting on: 0 05/29/2025 06:55 AM EDT History and Physical Notes * [...]
--- OUTSIDE RECORDS SUMMARY | 2025-03-19 06:15 | XMS_ITS ---
Author Organization [facility] Address [address] [place] [phone] Care Team Providers Care Commercial Relationship Manager Name Role Phone Star Tijerina Primary Care Provider [phone] Allergies No Known Allergies Results Component Value [...] once a day Active Vital Signs Weight 226 lbs 03/19/2025 Blood pressure systolic 132 mm Hg 03/19/20 25 Blood pressure diastolic 76 mm Hg 025 Heart Rate 56 /min 03/19/2025 Height 68 in 03/19/2025 BMI 34.36 kg/m2 03/19/2025 Encounters Encounter Location Date [facility] [address] [facility] [address] [phone] 03/19/2025 Star Tijerina Essential hypertensi on I10 [...] Follow Up: 6 Months, Reason: Provider Name:Star padilla, 06/05/2025 09:30:00 AM, [facility] [facility] 36 [facility], [place], [phone], Provider Name:Star padilla, 09/17/2025 09:45:00 AM, [facility] 36 [facility], [facility] [address], [place], [place], [phone], Progress Notes * Chad TSOVEReDOB:1955 (70 yo M)Acc No.[id number]:03/19/2025 Progress Notes Patient: Zuhair LAMB Provider: Chepe Tijerina M.D. :1955 A ge:69 Y S ex:Male Date:03/19/2025 Address:[address] [place] [address], [place] [facility] Subjective: * Chief Complaints: * 1 . [...] affeine: yes, frequency:. Marital Status: . Occupation: [employer]. Past smoking status: no, quit smoking 1983 [...] Temp: 97.7, BP: 132/76, HR: 56, Nurse: ernesto/macey, Ht: 68, BMI:34.36. * Examination: C ardiology: [...] I G# 0.02 - 10 3uL * Suni Schaefer 03/22/2025 05:4 2:16 PM EDT > See phone encounter ?LAB: H-Microalbumine/Creatinine (Collection Date & Time - 03/21/2025 08:23 AM)?Normal* Value Reference Range M ICROALB 10.600 0-16.7 - mg/L * U CREAT 205 Not Estab. - mg/dL * M ALBCREAT 5.1 - * Suni Schaefer 03/22/2025 05:4 2:16 [...] T SH 1.65 0.465-4.68 - uIU/mL * Suni Schaefer 03/22/2025 05:4 2:16 PM [...] * Images: Billing Information: * Visit Code: 99897 Office Visit, Est Pt., Level 4. * [...] Tijerina M.D. Date: 0 03/19/2025 Generated for Kristine farias/Charmaine/eTransmitting on: 0 05/29/2025 06:54 AM EDT History [...]
--- OUTSIDE RECORDS SUMMARY | 2025-04-09 06:03 | XMS_ITS ---
Author Organization [facility] Address [address] [facility] [address] [place] [id number] Care Team Providers Care Customer Care Agent Name Role Phone Star Tijerina Primary Care Provider [phone] REASON FOR VISIT due colonoscopy Encounters Encounter Location Date Provider Diagnosis [place] [address] [place] [id number] 04/09/2025 Star Tijerina Screening for colon cancer Z12.11 Assessments Encounter Date Diagnosis (ICD Code) Assessment Notes Treatment Notes Treatment Clinical Notes Section Notes 04/09/2025 Screening for colon cancer (ICD-10 - Z12.11) Plan Of Treatment Pending Test Test Name Order Date Cologuard 04/09/2025 Next Appt Details Provider Name:Star padilla, 06/05/2025 09:30:00 AM, [address], [address], [place], [id number], Provider Name:Star padilla, 09/17/2025 09:45:00 AM, [address], [address], [place], [phone], Progress Notes * JOLANTA PanchitoLavern:1955 (70 yo M)Acc No.[id number]:04/09/2025 Patient: Zuhair LAMB :1955 A ge:70 Y S ex:Male Address:[address], [place] [address] Subjective: * Chief Complaints: * D ue colonoscopy * Medical History: * Surgical History: * Hospitalization/Major Diagno stic Procedure: * Medications: Objective: * Vitals: * Physical Examination: Assessment: * Assessment: 1. S creening for colon cancer - Z12.11 (Primary) Plan: * Treatment: * Procedure Codes: * true * Date: Generated for Kristine farias/Charmaine/Agusto on: 0 05/29/2025 06:55 AM EDT
--- OUTSIDE RECORDS SUMMARY | 2025-05-22 07:00 | XMS_ITS ---
Author Organization [facility] Address [address] [facility] [address] [place] [phone] Care Team Providers Care Heavy Equipment Technician Name Role Phone Star Tijerina Primary Care [...] Provider Diagnosis [place] [address] [place] [id number] 05/22/2025 Star Tijerina Neoplasm of uncertai n [...] a 30 min appt., Reason: Provider Name:Star padilla, 06/05/2025 09:30:00 AM, [address], [address], [place], [id number], Provider Name:Star padilla, 09/17/2025 09:45:00 AM, [address], [address], [place], [place], [phone], Progress Notes * Susan STOVEROB:1955 (70 yo M)Acc No.[id number]:05/22/2025 Progress Notes Patient: Zuhair LAMB Provider: Chepe Tijerina M.D. :1955 A ge:70 Y S ex:Male Date:05/22/2025 Address:[facility] [address], [place] Subjective: * Chief Complaints: * 1 . [...] affeine: yes, frequency:. Marital Status: . Occupation: [employer] is [employer]. Past smoking status: no, quit smoking 1983 [...] chest - D48.5 Plan: * Treatment: * Follow Up: 2 Weeks for a 30 min appt. * Images: Billing Information: * Visit Code: 73413 Office Visit, Est Pt., Level 3. * Procedure Codes: * Electronic signature of Shelby Tijerina MD on 05/29/2025 at 06:54 AM EDT Sign off status: Pending * Provider: Chepe Tijerina M.D. Date: 0 05/22/2025 Generated for Kristine farias/Charmaine/Agusto on: 0 05/29/2025 [...]
--- NOTE | 2025-05-29 | CA_ITS ---
APPROVED REPORT Exam: Pharmacologic Technologist: Catrina Garrett Ht: 5 ft 8 in Wt: 227 lbs BSA: 2.16 m2 HR: 69 bpm BP: 169/69 mmHg Stress Test Details Test: Lexiscan HR Resting HR: 69 bpm Max Heart Rate (APMHR): 150.699568 bpm Max HR Achieved: 79 bpm Target HR (85% APMHR): 127.940794 bpm % of APMHR: 52.67 Recovery HR: 75 bpm BP Resting BP: 169.0/69.0 mmHg Max BP: 194.0/91.0 mmHg Recovery BP: 156.0/74.0 mmHg ECG Resting ECG: Sinus rhythm, right bundle branch block Stress ECG Conclusion Lungs CTA prior to start. Symptoms: None Arrhythmias/Ectopy: PVC ST-T Changes: Less than 0.[address] segment changes. Conclusion: Non-diagnostic ECG Lexiscan. Electronically signed by : Emily Beltran MD 05/30/2025 00:19:35
--- OUTSIDE RECORDS SUMMARY | 2025-05-29 06:54 | XMS_ITS | Clinical Summary ---
Author Organization [facility] Address [address] [place] [address] Care Team Providers Care Skelp Processor Name Role Phone Star Tijerina MD Primary Care Provider [phone] Social History Tobacco Use Types Packs/Day Years [...] Date Last Done Comments [facility]-Depression Screening 1955 [facility]-/Child/Adol SDOH Screenings 1955 [facility]- SDOH Screenings 1973 [facility]-Adult SDOH Screenings 1973 [facility]-DTaP,Tdap,and Td Vaccine s (1 - Tdap) 1974 CT Colonography 2000 Colonoscopy 2000 FIT-DNA 2000 FIT 2000 FOBT 2000 Sigmoidoscopy 2000 [facility]-Colorectal Cancer Screening 2000 [facility]-Pneumococcal Vaccine: 50 + Years (1 of 1 - PCV) 2005 [facility]-Zoster Vaccines (1 of 2) 2005 ABC-JPMBU-16 Vaccine (1 - 20 24-25 season) 2024 [facility]-Influenza Vaccine (#1) 2025 [facility]-RSV Vaccine: 60+ Years o r [...] age to complete this topic Care Teams Skelp Processor Relationship Specialty Start Date End Date Star Tijerina MD [address] [place] [address] [address] [address] PCP - General 02/07/21
--- OUTSIDE RECORDS SUMMARY | 2025-05-29 06:54 | XMS_ITS | Clinical Summary ---
Author Organization [facility] Address [address] [place] [address] Care Team Providers Care Deburr Technician Name Role Phone None, Physician Primary Care Provider Unavailabl e Allergies No known active allergies Medications celecoxib (CELEBREX) 200 MG capsule 12/20/2016 Active Active Problems No known active problems Social History Tobacco Use Types Packs/Day Years Used Date Smoking Tobacco: Never Alcohol Use Standard Drinks/Week Comments No 0 (1 standard drink = 0.6 oz pur e alcohol) Sex and Gender Information Value Date Recorded Sex Assigned at Not on file Legal Sex Male 3:55 PM EDT Gender Identity Not on file Sexual Orientation Not on file Last Filed Vital Signs Vital Sign Reading Time Taken Comments Blood Pressure 138/76 01/06/2017 7:38 AM EDT Pulse - - Temperature 36.4 C (97.6 F) 01/06/2017 7:38 AM EDT Respiratory Rate - - Oxygen Saturation - - Inhaled Oxygen Concentration - - Weight 90.7 kg (200 lb) 01/06/2017 7:38 AM EDT Height 172.7 cm (5' 8 ) 01/06/2017 7:38 AM EDT Body Mass Index 30.41 01/06/2017 7:38 AM EDT Plan of Treatment Health Maintenance Due Date Last Done Comments CT Colonography 1955 Colonoscopy 1955 Colorectal Cancer Screening 1955 FIT-DNA 1955 FIT 1955 FOBT 1955 Hepatitis C Screening 1955 Sigmoidoscopy 1955 Tdap/Td Vaccine >11 yo (1 - Tdap) 1974 Pneumococcal Vaccines >50 yo (1 of 1 - PCV) 2005 Shingles (Shingrix) (1 of 2) 2005 Abdominal Aortic Aneurysm (A AA) Screen 2020 Annual SDOH Screening 09/27/2024 Influenza Vaccine (#1) 2025 Haemophilus Influenzae Type B (Hib) Vaccine Aged Out No longer eligible b ased on patient's age to complete this topic Hepatitis A (HepA) Vaccine Aged Out N o longer eligible based on patient's age to complete this topic Hepatitis B (HepB) Vaccine Aged Out N o longer eligible based on patient's age to complete this topic Meningococcal ACWY Aged Out No longer eligible based on patient's age to complete this topic Polio (IPV) Aged Out No longer eligi ble based on patient's age to complete this topic Rotavirus (RV) Vaccine Aged Out No lo nger eligible based on patient's age to complete this topic Insurance [employer] Care Teams Deburr Technician Relationship Specialty Start Date End Date None, Physician PCP - General 01/05/17
--- OUTSIDE RECORDS SUMMARY | 2025-05-29 06:54 | XMS_ITS | Clinical Summary ---
Author Organization [facility] Address [address] [place] [address] Phone [email or web address] Care Team Providers Care Purchasing Intern Name Role Phone Reymundo Morgan Primary Care [...] Colonography 1955 Colonoscopy 1955 Colorectal Cancer Screening Combo 1955 DNA Cologuard 1955 Dental Cleaning/Exam 1955 FIT or FOBT Test 1955 Sigmoidoscopy 1955 Tetanus Diphtheria and Pertu ssis Immunization (1 - Tdap) 1974 Pneumococcal: 65+ Years (1 o f 1 - PCV) 2005 Zoster Immunization (1 of 2) 2005 Covid-19 Immunization (1 - 2 -25 season) 2024 Influenza Immunization (#1) 2025 HIB Immunization Aged Out No longer [...] this topic Insurance [place] [address] [facility] [id number] [place] [address] Care Teams Purchasing Intern Relationship Specialty Start Date End Date Reymundo Morgan PCP - General 06/20/19
--- OUTSIDE RECORDS SUMMARY | 2025-05-29 06:56 | XMS_ITS | Patient Health Record ---
Author Organization [facility] Address [address] [facility] [address] [place] [phone] Care Team Providers Care Group Social Worker Name Role Phone Star Tijerina Primary Care Provider Allergies No Known Allergies Results Component Value Reference Range Notes Urinalysis - Inhouse Reviewed date:02/03/2025 10:12:49 AM Interpretation: Performing Lab: Notes/Report: Color/Clarity yellow/clear Leuk Neg Nitrite Neg Urobili 16 Protein Neg pH 7.5 Blood Neg Sp. Gr. 1.020 Ketone Neg Bili Neg Gluc Neg H-TSH Reviewed date:03/22/2025 05:42:24 PM Interpretation:Normal Performing [...] Performing Lab: Notes/Report: [facility]ASC 0.4 0.0-4.0 ng/ml Medications Medication SIG (Take, Route, Frequency, Duration) Notes Start Date End Date Status CoQ10 30 MG 1 cap(s) orally once [...] Once a day; Duration: 90 days Active Immunizations Vaccine Route Administration Date Status Comme nts tuberculin (ppd) ID Intradermal 11/23/2011 Administered Problems Problem Type SNOMED Code ICD Code Onset Dates Problem Status W/U Status Risk Notes Problem Essential hypertension (82809703) Essential hypertension (I10) Active confirmed Problem Hypertriglyceridemia (782280981) Hypertriglyceridemia (E78.1) Active confirmed Problem Mixed hyperlipidemia (617325879) Mixed hyperlipidemia (E78.2) Active confirmed Problem Atherosclerotic hear t disease of [place] coronary artery without angina pectoris (635387466702679) Coronary artery disease involving [place] coronary artery of [place] heart without angina pectoris (I25.10) Active confirmed Problem Gastroesophageal reflux disease (287711569) Gastroesophageal reflux disease, esophagitis presence not specified (K21.9) Active confirmed Problem Stented coronary artery (406054019) Stented coronary artery (Z95.5) Active confirmed Problem Acute non-ST segment elevation myocardial infarction (269029907) Non-STEMI (non-ST elevated myocardial infarction) (I21.4) Active confirmed Problem Stricture of esophagus (50022484) Schatzki's ring of distal esophagus (K22.2) Active confirmed Vital Signs Heart Rate 67 /min 05/22/2025 Blood pressure diastolic 82 mm Hg 05/22/2025 Height 68 in 05/22/2025 Blood pressure systolic 130 mm Hg 05/22/2025 Weight 227 lbs 05/22/2025 BMI 34.51 kg/m2 05/22/2025 Encounters Encounter Location Date Provider [facility] [address] [place], [place] [phone] 03/22/[address] [facility] [address] [place], [place] [phone] 04/09/2025 Star Shunk Screening for colon cancer Z12.11 [facility] [address] [place], [place] [phone] 03/19/2025 Star Shunk Essential hypertensi on I10 ; Mixed hyperlipidemia E78.2 ; Hypertriglyceridemia E78.1 ; Gastroesophageal reflux disease, esophagitis presence not specified K21.9 ; Acute pain of left knee M25.562 and Prostate cancer screening [facility]12.[facility] [address] [place], [place] [phone] 05/22/2025 Star [place] Neoplasm of uncertai n behavior of skin of upper extremity D48.5 and Neoplasm of uncertain behavior of skin of chest D48.5 [facility] [address] [place], [place] [phone] 02/02/2025 Star [place] 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 Z02.4 Assessments Encounter Date Diagnosis (ICD Code) Assessment Notes Treatment Notes Treatment Clinical Notes Section Notes 02/02/2025 Encounter for Department of Transportation (DOT) examination for deny license (ICD-10 - Z02.4) 03/19/2025 Essential hypertensi on (ICD-10 - I10) 04/09/2025 Screening for colon cancer (ICD-10 - Z12.11) 05/22/2025 Neoplasm of uncertai n behavior of skin of chest (ICD-10 - D48.5) 05/22/2025 Neoplasm of uncertai n behavior of skin of upper extremity (ICD-10 - D48.5) 03/19/2025 Mixed hyperlipidemia (ICD-10 - E78.2) 03/19/2025 Hypertriglyceridemia (ICD-10 - E78.1) 03/19/2025 Gastroesophageal ref lux disease, esophagitis presence not specified (ICD-10 - K21.9) 03/19/2025 Acute pain of left k nee (ICD-10 - M25.562) Rest, ice, compression and elevation 03/19/2025 Prostate cancer screening (ICD-10 - Z12.5) 05/22/2025 Other Plan biopsy of both lesions ANTONIO Plan Of Treatment Pending Test Test Name Order Date Cologuard 04/09/2025 Next Appt Details Provider Name:Star padilla, 06/05/2025 09:30:00 AM, [address] [facility] 36 [facility], [address], [place], [place], [phone], Provider Name:Star padilla, 09/17/2025 09:45:00 AM, [address] [facility], [address], [place], [place], [id number], Insurance Providers Payer Name Payer Address Payer Phone Subscriber Number Group Number Insured Name Patient Relationship to Insured Coverage Start Date Coverage End Date [employer] (MEDICARE) [address] [address] [place] [address] [id number] Zuhair Stover Self - patient is the insured MEDICARE PART B [address] [address] [place] [address] [id number] Jolanta Zuhair Self - patient is the insured Medical (General) History Medical History History ICD Code Psoriasis Hiatal Hernia Esophageal Reflux RT Hip Fracture, s/p Fall at work 7 NSTEMI, 04/2019 CAD, 04/2019 Surgical History Surgery Date(Month/Year) LT Coreen- Dr. Dwaine Granado 06/08/201 7 RT Hip Replacement 07/2017 Cardiac Stent x5 05/16/2019 Hospitalization History Reason Date(Month/Year) [facility] - NSTEMI, Stent Placement 05/16-17/11 019
[2025-05-29] MEDS: SODIUM CHLORIDE 0.9% 10ML SYR (RAD ONLY) 10 ML IV ×2 (07:10→09:00)
--- NOTE | 2025-05-29 07:30 | NM_ITS ---
APPROVED REPORT Exam: Nuclear Stress Test Indication: cad, h/o mi, htn, sob, dizziness, fatigue Patient Location: Outpatient Stress Tech: Catrina Garrett PR Tech:JB Osorio RT (R)(N)(M) Ht: 5 ft 8 in Wt: 227 lbs HR: 69 bpm BP: 169/69 mmHg BSA: 2.16 m2 TID: 0.97 BMI: 34.5 Procedure: Patient received 0.4 mg of intravenous Lexiscan, resting heart rate 69 bpm, resting blood pressure 169/69 mmHg, with Lexiscan maximum heart rate achieved was 79 bpm which is % of the maximum predicted heart rate and blood pressure was 174/76 mmHg. With Lexiscan, patient denied any complaint of chest pain. Cardiac Stress and Resting SPECT Images: Cardiac Stress and Resting SPECT images were obtained using technetium 99m Myoview 31.1 mCi stress and 10.46 mCi at rest. Raw images demonstrate significant soft tissue overlap with the cardiac borders. This may affect diagnostic interpretation of the study findings. Resting and stress imaging in supine positions demonstrate an large sized, moderate, fixed perfusion defect in the basal to mid inferior LV dockery. This is no longer visualized with prone stress imaging. Findings are suggestive of diaphragmatic attenuation. Gated imaging demonstrates normal global and regional LV systolic function. LVEF is calculated at 60%. Conclusion: Diaphragmatic attenuation is present. No evidence of fixed or reversible perfusion defects. Gated imaging demonstrates normal global and regional LV systolic function. LVEF is calculated at 60%. Electronically signed by : Emily Beltran MD 05/29/2025 13:30:42
[2025-05-29] MEDS: ISOTOPE MYOVIEW (PER STUDY) 1 DOSE IV (09:54)
== END 2025-05-29 23:59 | disposition home or self-care (01) ==
LOC: RAD 06:52
PROVIDERS: PCP Family Medicine; Visit Provider Physician Assistant
DX: I49.3 Ventricular premature depolarization (principal); I25.10 Atherosclerotic heart disease of native coronary artery without angina pectoris; I11.9 Hypertensive heart disease without heart failure; I25.2 Old myocardial infarction; R42 Dizziness and giddiness
CPT/HCPCS: 78452; 93017; 93018; A9502; J2785

== ENCOUNTER 2025-06-26 07:20 | Outpatient (CLI) | payer MEDICARE, SELFPAY ==
--- OUTSIDE RECORDS SUMMARY | 2025-03-19 06:15 | XMS_ITS ---
Author Organization [facility] Address [address] [place] [phone] Care Team Providers Care Credit Collections Manager Name Role Phone Star Tijerina Primary [...] 03/19/2025 Encounters Encounter Location Date [facility] [address] [phone] 03/19/2025 Star Tijerina Essential hypertensi on I10 [...] [address], [place], [place], [phone], Progress Notes * Chad STOVEReDOB:1955 (70 yo M)Acc No.[id number]:03/19/2025 Progress Notes Patient: Zuhair LAMB Provider: Chepe Tijerina M.D. :1955 A ge:69 Y S ex:Male Date:03/19/2025 Address:[address] [place] [address], [facility] Subjective: * Chief Complaints: * 1 . [...] affeine: yes, frequency:. Marital Status: . Occupation: [email or web address]. Past smoking status: no, quit smoking 1983 [...] * Images: Billing Information: * Visit Code: 62091 Office Visit, Est Pt., Level 4. * Procedure Codes: G2211 Complex e/[place]. 1036F TOBACCO NON-USER. G8950 PREHTN/HTN BP DOC INDCD F/U DOC. G8752 MOST RECENT SYSTOLIC BP < 140MM HG. G8754 MOST RECENT DIASTOLIC BP < 90MM HG. * Electronic signature of Shelby Tijerina MD on 06/26/2025 at 07:23 AM EDT Sign off status: Pending * Provider: Chepe Tijerina M.D. Date: 0 03/19/2025 Generated for Shaynei ng/Falichag/eTransmitting on: 0 06/26/2025 07:23 AM EDT History and Physical Notes * [...]
--- OUTSIDE RECORDS SUMMARY | 2025-05-22 07:00 | XMS_ITS ---
Author Organization [facility] Address [address] [facility] [address] [place] [phone] Care Team Providers Care Clerical Stock Inspector Name Role Phone Star Tijerina Primary Care [...] Provider Diagnosis [place] [address] [facility] [address] [place] [phone] 05/22/2025 Star Tijerina Neoplasm of uncertai n [...] [address], [address], [place], [phone], Progress Notes * Chad STOVEReDOB:1955 (70 yo M)Acc No.[id number]:05/22/2025 Progress Notes Patient: Zuhair LAMB Provider: Chepe Tijerina M.D. :1955 A ge:70 Y S ex:Male Date:05/22/2025 Address:[address] [place] [address], [place] Subjective: * Chief Complaints: * 1 . [...] affeine: yes, frequency:. Marital Status: . Occupation: [employer], [employer]. Past smoking status: no, quit smoking 1983 [...] * Images: Billing Information: * Visit Code: 32912 Office Visit, Est Pt., Level 3. * [...] 0 05/22/2025 Generated for Kristine farias/Charmaine/Wesleyransmitting on: 0 06/26/2025 07:23 AM EDT History [...]
--- OUTSIDE RECORDS SUMMARY | 2025-06-05 05:30 | XMS_ITS ---
Author Organization [facility] Address [address] [place] [phone] Care Team Providers Care Gas Controller Name Role Phone Star Tijerina Primary Care [...] 1A, 12/26. 2. Received in formalin labeled [place]ol[place], Zuhair and Rt upper chest is a [...] 2A, 11/25. (HMR,RR13,mlm) Grossing services provided by [facility], [facility], d/b/a [address] [place], [address] Vinay Woodson MD, Lunchroom Aide. Microscopic Description: 1. There are nests of [...] End of Report Technical services provided by [facility], [facility], d/b/a [address] , [place] [address] Vinay Woodson MD, Lunchroom Aide. Case reviewed and diagnosis rendered at [facility], [facility], d/b/a [address] , [place] [address] Vinay Woodson MD, Lunchroom Aide. CONFIDENTIAL REASON FOR VISIT 2 weeks Medications [...] Notes Problem Squamous cell carcinoma of skin (944779731) SCC (squamous cell carcinoma) (C44.92) Active confirmed Problem Basal cell carcinoma of skin (400704348) Basal cell carcinoma (BCC), unspecified site (C44.91) Active confirmed Vital Signs Weight 228.6 lbs 06/05/2025 Blood pressure systolic 130 mm Hg 06/05/20 25 Blood pressure diastolic 68 mm Hg 025 Heart Rate 56 /min 06/05/2025 Height 68 in 06/05/2025 BMI 34.75 kg/m2 06/05/2025 Encounters Encounter Location Date Provider [facility] [address] [phone] 06/05/2025 Star Tijerina Neoplasm of uncertai n [...] [address], [place], [phone], Procedure Notes * Category Sub-Category Detail Notes [...] flexible blade was used to harvest a corporate representative specimen, light electrocautery of excision site [...] Notes * Chad STOVEReDOB:1955 (70 yo M)Acc No.[id number]:06/05/2025 Progress Notes Patient: Zuhair LAMB Provider: Chepe Tijerina M.D. :1955 A ge:70 Y S ex:Male Date:06/05/2025 Address:[address], [place] Subjective: * Chief Complaints: * 1 . [...] affeine: yes, frequency:. Marital Status: . Occupation: [employer], [employer]. Past smoking status: no, quit smoking 1982 [...] flexible blade was used to harvest a corporate representative specimen, light electrocautery of excision site [...] * Images: Billing Information: * Visit Code: 11961 Office Visit, Est Pt., Level 2. Modifiers: 25 * Procedure Codes: 04762 SHAVE LESION,TRUNK,ARMS,LEGS 0.6 TO 1.0 CM. Units: 2.00. G2211 Complex e/m visit add on. * Electronic signature of Shelby Tijerina MD on 06/26/2025 at 07:23 AM EDT Sign off status: Pending * Provider: Chepe Tijerina M.D. Date: 0 06/05/2025 Generated for Kristine farias/Charmaine/Fabbyitting on: 0 06/26/2025 07:23 AM EDT History [...]
--- OUTSIDE RECORDS SUMMARY | 2025-06-08 12:47 | XMS_ITS ---
Author Organization [facility] Address [facility] [address] [place] [phone] Care Team Providers Care Chemical Dependency Attendant Name Role Phone Star Tijerina Primary Care Provider REASON FOR VISIT abnormal pathology Encounters Encounter Location Date Provider Diagnosis [facility] [address] [facility] [address] [place] [phone] 06/08/2025 Star Tijerina Plan Of Treatment Next Appt Details Provider Name:Star Lemon ry, 09/17/2025 09:45:00 AM, [address], [address], [place], [phone], Progress Notes * Chad STOVEReDOB:1955 (70 yo M)Acc No.[id number]:06/08/2025 Patient: Zuhair LAMB :1955 A ge:70 Y S ex:Male Address:[place] [address] Subjective: * Chief Complaints: * A bnormal pathology * Medical History: * Surgical History: * Hospitalization/Major Diagno stic Procedure: * Medications: Objective: * Vitals: * Physical Examination: Assessment: Plan: * Treatment: * Procedure Codes: * true * Date: Generated for Printi ng/Faxing/eTransmitting on: 0 06/26/2025 07:23 AM EDT
--- OUTSIDE RECORDS SUMMARY | 2025-06-26 07:23 | XMS_ITS | Clinical Summary ---
Author Organization [facility] Address [address] [place] [address] Phone [email or web address] Care Team Providers Care Egg Caser Name Role Phone Reymundo Morgan Primary Care [...] ssis Immunization (1 - Tdap) 1974 Pneumococcal: 50+ Years (1 o f 1 - PCV) 2005 Zoster Immunization (1 of 2) 2005 Covid-19 Immunization (1 - 2 -25 season) 2025 Influenza Immunization (#1) 2025 HIB Immunization Aged [...] Insurance [place] [address] [facility] [id number] [place] [address] Care Teams Egg Caser Relationship Specialty Start Date End Date Reymundo Morgan PCP - General 06/20/19
--- OUTSIDE RECORDS SUMMARY | 2025-06-26 07:23 | XMS_ITS | Clinical Summary ---
Author Organization [facility] Address [address] [place] [address] Care Team Providers Care Welding Tester Name Role Phone None, Physician Primary Care [...] SDOH Screening 09/27/2024 Influenza Vaccine (#1) 2025 RSV 50+ and (1 - 1 -dose 75+ series) 2030 Haemophilus Influenzae Type B (Hib) Vaccine Aged [...] WORK [employer] Care Teams Welding Tester Relationship Specialty Start Date End Date None, Physician PCP - General 01/05/17
--- OUTSIDE RECORDS SUMMARY | 2025-06-26 07:24 | XMS_ITS | Patient Health Record ---
Author Organization [facility] Address [address] [place] [id number] Care Team Providers Care Parts And Service Manager Name Role Phone Star Tijerina Primary Care Provider [phone] Allergies No Known Allergies Results Component Value [...] Performing Lab: Notes/Report: PSASC 0.4 0.0-4.0 ng/ml P-Surgical Pathology Reviewed date:06/08/2025 04:48:33 PM Interpretation: Performing Lab: Notes/Report: Surgical Pathology View Report Patient Name: HELGA STOVER Age-Sex-: 70y M 1955 Procedure Date: [...] Gross Description: 1. Received in formalin labeled Helga Stover and Lt upper arm is a sánchez shaved portion [...] 1A, 12/26. 2. Received in formalin labeled Helga Stover and Rt upper chest is a sánchez [...] 2A, 11/25. (HMR,RR13,mlm) Grossing services provided by [facility], [facility], d/b/a [facility] [address] [facility] [place], [address] Vinay Woodson MD, Open Pit Quarry Supervisor. Microscopic Description: 1. There are nests of [...] End of Report Technical services provided by [facility], [facility], d/b/a [address] , [place] [address] Vinay Woodson MD, Open Pit Quarry Supervisor. Case reviewed and diagnosis rendered at [facility], [facility], d/b/a [facility], [address] [place] [address] , [place] [address] Vinay Woodson MD, Open Pit Quarry Supervisor. CONFIDENTIAL Urinalysis - Inhouse Reviewed date:02/03/2025 10:12:49 AM Interpretation: Performing Lab: Notes/Report: Color/Clarity yellow/clear Leuk Neg Nitrite Neg Urobili 16 Protein Neg pH 7.5 Blood Neg Sp. Gr. 1.020 Ketone Neg Bili Neg Gluc Neg Medications Medication SIG (Take, Route, Frequency, Duration) Notes Start Date End Date Status CoQ10 30 MG 1 cap(s) orally once a day Active Nitroglycerin 0.4 MG 1 tablet under the tongue and allow to dissolve as needed. Take every 5 minutes up to 3 times if chest pain persists Sublingual Three times a day Active Losartan Potassium 100 MG 1 tab(s) orall y once a day Active Aspirin Adult Low Dose 81 MG 1 tab(s) or ally once a day Active Celecoxib 200 MG Take 1 capsule [...] tab(s) ora lly once a day Active hydroCHLOROthiazide 12.5 MG 1 cap(s) ora lly once a day; Duration: 90 days Active Metoprolol Succinate ER 25 MG 1 tab(s) o rally twice a day; Duration: 90 days Active Immunizations Vaccine Route Administration Date Status Comme nts tuberculin (ppd) ID Intradermal 11/23/2011 Administered Problems Problem Type SNOMED Code ICD Code Onset Dates Problem Status W/U Status Risk Notes Problem Essential hypertension (68830996) Essential hypertension (I10) Active confirmed Problem Hypertriglyceridemia (874869303) Hypertriglyceridemia (E78.1) Active confirmed Problem Mixed hyperlipidemia (411135663) Mixed hyperlipidemia (E78.2) Active confirmed Problem Atherosclerotic hear t disease of [place] coronary artery without angina pectoris (014726484772535) Coronary artery disease involving [place] coronary artery of [place] heart without angina pectoris (I25.10) Active confirmed Problem Gastroesophageal reflux disease (197270359) Gastroesophageal reflux disease, esophagitis presence not specified (K21.9) Active confirmed Problem Stented coronary artery (664505233) Stented coronary artery (Z95.5) Active confirmed Problem Acute non-ST segment elevation myocardial infarction (247254633) Non-STEMI (non-ST elevated myocardial infarction) (I21.4) Active confirmed Problem Stricture of esophagus (03041085) Schatzki's ring of distal esophagus (K22.2) Active confirmed Problem Basal cell carcinoma of skin (279531498) Basal cell carcinoma (BCC), unspecified site (C44.91) Active confirmed Problem Squamous cell carcinoma of skin (831384379) SCC (squamous cell carcinoma) (C44.92) Active confirmed Vital Signs Heart Rate 56 /min 06/05/2025 Blood pressure diastolic 68 mm Hg 06/05/2025 Height 68 in 06/05/2025 Blood pressure systolic 130 mm Hg 06/05/2025 Weight 228.6 lbs 06/05/2025 BMI 34.75 kg/m2 06/05/2025 Encounters Encounter Location Date Provider Diagnosis [facility] [address] [place] [id number] 02/02/2025 Star Tijerina 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 Z02.4 [facility] [address] [facility] [address] [place] [id number] 03/19/2025 Star Kennard Essential hypertensi on I10 ; Mixed hyperlipidemia E78.2 ; Hypertriglyceridemia E78.1 ; Gastroesophageal reflux disease, esophagitis presence not specified K21.9 ; Acute pain of left knee M25.562 and Prostate cancer screening Z12.5 [facility] [address] [place], [place] [id number] 05/22/2025 Star Kennard Neoplasm of uncertai n behavior of skin of upper extremity D48.5 and Neoplasm of uncertain behavior of skin of chest D48.5 [facility] [address] [place], [place] [id number] 06/05/2025 Star Kennard Neoplasm of uncertai n behavior of skin of chest D48.5 ; Neoplasm of uncertain behavior of skin of upper arm D48.5 ; SCC (squamous cell carcinoma) C44.92 and Basal cell carcinoma (BCC), unspecified site C44.91 [facility] [address] [place], [place] [id number] 03/22/[address] [facility] [address] [place], [place] [id number] 04/09/2025 Star Kennard Screening for colon cancer Z12.11 [facility] [address] [place], [place] [id number] 06/08/2025 Star Kennard Assessments Encounter Date Diagnosis (ICD Code) Assessment Notes Treatment Notes Treatment Clinical Notes Section Notes 02/02/2025 Encounter for Department of Transportation (DOT) examination for deny license (ICD-10 - Z02.4) 03/19/2025 Essential hypertensi on (ICD-10 - I10) 03/19/2025 Mixed hyperlipidemia (ICD-10 - E78.2) 04/09/2025 Screening for colon cancer (ICD-10 - Z12.11) 05/22/2025 Neoplasm of uncertai n behavior of skin of upper extremity (ICD-10 - D48.5) 05/22/2025 Neoplasm of uncertai n behavior of skin of chest (ICD-10 - D48.5) 06/05/2025 Neoplasm of uncertai n behavior of skin of chest (ICD-10 - D48.5) 06/05/2025 Neoplasm of uncertai n behavior of skin of upper arm (ICD-10 - D48.5) 06/05/2025 SCC (squamous cell carcinoma) (ICD-10 - C44.92) 03/19/2025 Hypertriglyceridemia (ICD-10 - E78.1) 03/19/2025 Gastroesophageal ref lux disease, esophagitis presence not specified (ICD-10 - K21.9) 06/05/2025 Basal cell carcinoma (BCC), unspecified site (ICD-10 - C44.91) 03/19/2025 Acute pain of left k nee (ICD-10 - M25.562) Rest, ice, compression and elevation 03/19/2025 Prostate cancer screening (ICD-10 - Z12.5) 05/22/2025 Other Plan biopsy of both lesions ANTONIO Plan Of Treatment Pending Test Test Name Order Date Cologuard 04/09/2025 Next Appt Details Provider Name:Star Lemon ry, 09/17/2025 09:45:00 AM, [address], [address], [place], [place], [id number], Insurance Providers Payer Name Payer Address Payer Phone Subscriber Number Group Number Insured Name Patient Relationship to Insured Coverage Start Date Coverage End Date [employer] (MEDICARE) [address] [address] [place] [address] [phone] [id number] Helga Stover Self - patient is the insured MEDICARE PART B [address] [address] [place] [address] [phone] [id number] Helga Stover Self - patient is the insured Medical (General) History Medical History History ICD Code Psoriasis Hiatal Hernia Esophageal Reflux RT Hip Fracture, s/p Fall at work 7 NSTEMI, 04/2019 CAD, 04/2019 Surgical History Surgery Date(Month/Year) LT Foot- Dr. Dwaine Granado 7 RT Hip Replacement 07/2017 Cardiac Stent x5 05/16/2019 Hospitalization History Reason Date(Month/Year) [facility] - NSTEMI, Stent Placement 05/16-17/11 019
--- OUTSIDE RECORDS SUMMARY | 2025-06-26 07:24 | XMS_ITS | Clinical Summary ---
Author Organization [facility] Address [address] [place] [address] Care Team Providers Care Mirror Installer Name Role Phone Star Tijerina MD Primary Care Provider [phone] Social History Tobacco Use Types Packs/Day Years [...] 2005 [facility]-Zoster Vaccines (1 of 2) 2005 [id number] Vaccine (1 - 20 24-25 season) 2025 [facility]-Influenza Vaccine (#1) 2025 [facility]-RSV Vaccine: 60+ [...] age to complete this topic Care Teams Mirror Installer Relationship Specialty Start Date End Date Star Tijerina MD [address] [place] [address], [place] [address] PCP - General 02/07/21
[2025-06-26] MEDS: ALBUTEROL 0.083% 2.5 MG/3 ML NEB IH (08:34)
== END 2025-06-26 23:59 | disposition home or self-care (01) ==
LOC: RT 07:22
PROVIDERS: PCP Family Medicine; Visit Provider Physician Assistant
DX: R94.2 Abnormal results of pulmonary function studies (principal); R06.02 Shortness of breath
CPT/HCPCS: 94060; 94726; 94729

== ENCOUNTER 2025-08-06 08:12 | Day surgery (SDC) | payer MEDICARE, SELFPAY ==
[2025-08-06] VITALS (12 sets, daily range): BP systolic 95–186; BP diastolic 47–94; PULSE 46–66; RESP 12–20; TEMP 36.1; O2SAT 94–97; BMI 35.1
--- NOTE | 2025-08-06 07:17 | IR_ITS ---
APPROVED REPORT Patient Location: Outpatient PROCEDURES Left heart catheterization Left ventriculogram Selective coronary angiogram INDICATION Known three-vessel coronary disease, Angina pectoris, Abnormal Myoview, Informed consent was obtained prior to the procedure. COMPLICATIONS NONE Estimated Blood Loss: LESS THAN 10 ML TECHNIQUE One percent lidocaine used to anesthetize the right anterior aspect of the wrist. The right radial artery was accessed via the Seldinger technique. A 6 Estonian sheath was placed in the right radial artery. 2.5 mg of Verapamil, 800 mcg of nitroglycerin, 1mg Lidocaine and 5000 U Heparin were given through the arterial sheath. The JL3 catheter was also used to perform left heart catheterization, left ventriculogram and selective coronary angiogram. At the end of the procedure the sheath was removed good hemostasis was achieved using Traclet band, patient was transferred to the postop holding area in stable condition. ANGIOGRAPHIC RESULTS The left main artery Has an ostial 10% stenosis The left anterior descending artery Has stents in the proximal to mid segment with the proximal segment being widely patent in the midsegment having mild concentric in-stent restenosis with excellent distal transitioning. There is a small first diagonal artery which has an ostial 80% stenosis which is jailed from a stent. The second diagonal artery is slightly larger and widely patent The circumflex artery Nondominant has a stent in the proximal segment which extends into the first obtuse marginal artery. The stent is widely patent with minimal in-stent restenosis with excellent proximal distal transition The right coronary artery Large and dominant has proximal and mid vessel eccentric 30 to 40% stenosis The CASTELLANOS ventriculogram reveals Normal 65% The left ventricular end-diastolic pressure 15 mmHg IMPRESSION Coronary disease as described above Normal ejection fraction Normal LVEDP PLAN 1. Medical management 2. Risk factor modification Electronically signed by : Berry Negron MD 08/10/2025 15:06:21
[2025-08-06 08:50] LABS: Hematocrit 48.3 % (42.0-52.0); Hemoglobin 16.5 g/dL (14.1-18.0); Immature Granulocytes % 0.4 %; Mean Corpuscular HGB Conc 34.2 g/dL (31.8-35.4); Mean Corpuscular Hemoglobin 30.2 pg (27.0-31.2); Mean Corpuscular Volume 88.5 fl (80-94); Nucleated Red Blood Cells % 0 %; Platelet Count 246 K/mm3 (142-424); Red Blood Count 5.46 M/mm3 (4.60-6.20); Red Cell Distribution Width-SD 41.3 fL; White Blood Count 8.2 K/mm3 (4.8-10.8)
[2025-08-06 09:06] LABS: Anion Gap 12.9 mEq/L (5-15); Blood Urea Nitrogen 22 mg/dl (9-20); Calcium 9.5 mg/dl (8.4-10.2); Carbon Dioxide 27 mmol/L (22.0-30.0); Chloride 102 mmol/L (98-107); Creatinine Clearance Estimated 78 mL/min (50-200); Creatinine,Serum 1.30 mg/dl (0.66-1.25); Estimated Glomerular Filt Rate 55 ml/min (>60); GFR (African American) 66 ML/MIN (>60); Glucose 121 mg/dl (74-100); Potassium 3.9 mmoL/L (3.5-5.1); Sodium 138 mmol/L (136-145)
[2025-08-06] MEDS: HEPARIN 1,000 UNITS/500ML NS (CATH LAB) 3000 UNIT IV (11:13)
[2025-08-06] MEDS: NITROGLYCERIN 800MCG/8ML SYR (CATH LAB) 800 MCG IA (11:14)
[2025-08-06] MEDS: LIDOCAINE 1% 10ML MDV 10 ML IJ (11:14)
[2025-08-06] MEDS: VERAPAMIL 2.5MG/ML 2ML VIAL 2.5 MG IV (11:14)
[2025-08-06] MEDS: HEPARIN 1,000 UNITS/ML 10ML VIAL (CATH LAB) 5000 UNIT IV (11:14)
[2025-08-06] MEDS: 0.9 % SODIUM CHLORIDE 500 ML 25 ML IV (11:15)
[2025-08-06] MEDS: FENTANYL 100MCG/2ML VIAL 50 MCG IV (11:36)
[2025-08-06] MEDS: MIDAZOLAM HCL 1MG/ML 5ML VIAL 1 MG IV (11:37)
[2025-08-06] MEDS: IOPAMIDOL-370 (76%);100ML BOTTLE 30 ML IV (15:06)
== END 2025-08-06 14:13 | disposition home or self-care (01) ==
LOC: CATHLAB 08:14
PROVIDERS: PCP Family Medicine; Visit Provider Internal Medicine
PROC: 4A023N7 Measurement of Cardiac Sampling and Pressure, Left Heart, Percutaneous Approach (ICD-10-PCS; CPT 93452; principal; 2025-08-06 09:30)
DX: I25.118 Atherosclerotic heart disease of native coronary artery with other forms of angina pectoris (principal); T82.855A Stenosis of coronary artery stent, initial encounter; R93.1 Abnormal findings on diagnostic imaging of heart and coronary circulation; R06.09 Other forms of dyspnea; I51.89 Other ill-defined heart diseases; I11.9 Hypertensive heart disease without heart failure; K21.9 Gastro-esophageal reflux disease without esophagitis; Z87.891 Personal history of nicotine dependence; Z95.5 Presence of coronary angioplasty implant and graft; Z79.02 Long term (current) use of antithrombotics/antiplatelets; Z79.82 Long term (current) use of aspirin; Z79.899 Other long term (current) drug therapy; E78.2 Mixed hyperlipidemia; Y84.8 Other medical procedures as the cause of abnormal reaction of the patient, or of later complication, without mention of misadventure at the time of the procedure
CPT/HCPCS: 80048; 85025; 93458; 99152; C1725; C1760; C1769; J1200; J1644; J3010; J7040; Q9967

== ENCOUNTER 2025-08-14 10:30 | Outpatient (CLI) | payer MEDICARE, SELFPAY | END 2025-08-14 23:59 | disposition home or self-care (01) | LOC: RT 10:31 | PROVIDERS: PCP Family Medicine; Visit Provider Physician Assistant | DX: I49.1 Atrial premature depolarization (principal); I49.3 Ventricular premature depolarization; R94.31 Abnormal electrocardiogram [ECG] [EKG]; R00.1 Bradycardia, unspecified | CPT/HCPCS: 93225; 93227 ==

== ENCOUNTER → 2025-08-16 12:00 | Outpatient (CLI) | payer MEDICARE, SELFPAY ==
--- OUTSIDE RECORDS SUMMARY | 2024-03-21 05:00 | XMS_ITS ---
Author Organization [facility] Address [address] [facility] [address] [place] [id number] Care Team Providers Care Pediatric Surgeon Name Role Phone Star Tijerina Primary Care Provider [phone] Allergies No Known Allergies Results Component Value [...] [address] [place] [id number] 03/21/2024 Star Tijerina Encounter for Depart ment [...] [address], [place], [id number], Progress Notes * Chad STOVEReDOB:1955 (70 yo M)Acc No.[id number]:03/21/2024 Physical Patient: Zuhair LAMB Provider: Chepe Tijerina M.D. 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 Patient saw cardiology at [facility] yesterday for his 6 months follow up [...] affeine: yes, frequency:. Marital Status: . Occupation: [employer], [employer]. Past smoking status: no, quit smoking 1983 [...] Procedure Codes: 8 1002 Urinalysis, no micro, 26804 VISUAL ACUITY SCREEN * Follow Up: p rn * Images: Billing Information: * Visit Code: 61697 Preventive Care Est Pt. Age 65 and over. * Procedure Codes: 55149 Urinalysis, no micro. 87237 VISUAL ACUITY SCREEN. * Electronic signature of Shelby Tijerina MD on 08/16/2025 at 01:27 PM EST Sign off status: Pending * Provider: Chepe Tijerina M.D. 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 Patient saw cardiology at [facility] yesterday for his 6 months follow up [...]
--- OUTSIDE RECORDS SUMMARY | 2025-02-02 06:15 | XMS_ITS ---
Author Organization [facility] Address [address] [facility] [address] [place] [phone] Care Team Providers Care Optical Store Manager Name Role Phone Star Tijerina Primary Care [...] ally once a day Active Vital Signs Weight 231 lbs 02/02/2025 Blood pressure systolic 128 mm Hg 02/03/20 25 Blood pressure diastolic 74 mm Hg 025 Heart Rate 56 /min 02/02/2025 Height 68 in 02/02/2025 BMI 35.12 kg/m2 02/02/2025 Encounters Encounter Location Date Provider Diagnosis [facility] [address] [place] [id number] 02/02/2025 Star Tijerina Encounter for Depart ment [...] [address], [place], [phone], Progress Notes * Chad STOVEReDOB:1955 (70 yo M)Acc No.[id number]:02/02/2025 Physical Patient: Zuhair LAMB Provider: Chepe Tijerina M.D. :1955 A ge:69 Y S ex:Male Date:02/02/2025 Address:[address] [place] [address], [id number] Subjective: * Chief Complaints: * 1 . [...] affeine: yes, frequency:. Marital Status: . Occupation: [employer]. Past smoking status: no, quit smoking 1982 [...] Temp: 98.0, BP: 128/74, HR: 56, Nurse: ernesot, Ht: 68, Visual Acuity: Left eye:20/25, Right [...] Procedure Codes: 8 1002 Urinalysis, no micro, 67202 VISUAL ACUITY SCREEN * Follow Up: p rn * Images: Billing Information: * Visit Code: 61132 Preventive Care Est Pt. Age 65 and over. * Procedure Codes: 97256 Urinalysis, no micro. 17630 VISUAL ACUITY SCREEN. * Electronic signature of Shelby Tijerina MD on 08/16/2025 at 01:25 PM EST Sign off status: Pending * Provider: Cehpe Tijerina M.D. Date: 0 02/02/2025 Generated for Kristine farias/Charmaine/Breannasmitting on: 10/16/2024 01:25 PM EST History and Physical Notes * [...]
--- OUTSIDE RECORDS SUMMARY | 2025-03-19 05:15 | XMS_ITS ---
Author Organization [facility] Address [address] [place] [phone] Care Team Providers Care Nurse Executive Name Role Phone Star Tijerina Primary Care Provider [phone] Allergies No Known Allergies Results Component Value Reference Range Notes H-TSH Reviewed date:03/22/2025 05:42:24 PM Interpretation:Normal Performing Lab: Notes/Report: TSH 1.65 0.465-4.68 uIU/mL H-CBC Reviewed date:03/22/2025 05:42:24 PM Interpretation:Normal Performing Lab: Notes/Report: WBC 7.6 4.8-10.8 K/mm3 RBC 4.89 4.60-6.20 M/mm3 HGB 14.8 14.1-18.0 g/dL HCT 43.8 42.0-52.0 % MCV 89.6 80-94 fl MCH 30.3 27.0-31.2 pg MCHC 33.8 31.8-35.4 g/dL RDW-SD 41.8 RDW 12.9 11.5-17.5 % PLT 248 142-424 K/mm3 MPV 10.3 7.4-10.4 fl NE% 65.5 37.0-80.0 % LY% 21.2 10-50 % MO% 9.2 1.7-9.3 % EO% 3.0 0.1-12.0 % BA% 0.8 0.1-2.0 % NRBC% 0 IG% 0.3 NE# 5.0 1.8-7.8 K/mm3 LY# 1.6 0.7-4.5 K/mm3 MO# 0.7 0.1-1.0 K/mm3 EO# 0.2 0.0-0.4 Kmm3 BA# 0.1 0-0.2 K/mm3 NRBC# 0 IG# 0.02 H-Microalbumine/Creatinine Reviewed date:03/22/2025 05:42:24 PM Interpretation:Normal Performing Lab: Notes/Report: UCREAT 205 Not Estab. mg/dL Random urine reference range not established. 24 hour urine samples recommended. MICROALB 10.600 0-16.7 mg/L MALBCREAT 5.1 Units: mg/g creat Normal: 0 - 29 Moderately Increased: 30 - 300 Severely Increased: >300 H-Lipid Panel Reviewed date:03/22/2025 05:42:24 PM Interpretation:chol 129, dldl 59.93, hdl 39 Performing Lab: Notes/Report: Patient Fasting? Y TRIG 86 30-150 mg/dl CHOL 129 140-200 mg/dl DLDL 59.93 100-129 mg/dL VLDL 17 0-40 mg/dL HDL 39 40-60 mg/dl CHLHDL 3.3 1-3.5 H-CMP Reviewed date:03/22/2025 05:42:24 PM Interpretation:bun 26, Cr 1.3, gfr 55, gluc 117 Performing Lab: Notes/Report: NA 138 136-145 mmol/L K 4.4 3.5-5.1 mmoL/L CL 99 98-107 mmol/L CO2 30 22.0-30.0 mmol/L GAP 13.4 5-15 mEq/L BUN 26 9-20 mg/dl CREATT 1.30 0.66-1.25 mg/dl GFRAA 66 >60 ML/MIN EGFR 55 >60 ml/min GLU 117 74-100 mg/dl CA 9.5 8.4-10.2 mg/dl BILIT 1.0 0.2-1.3 mg/dl AST 30 17-59 U/L ALT 25 12-78 U/L TP 6.7 6.3-8.2 g/dl ALB 3.9 3.5-5.0 g/dl GLOB 2.8 1.3-3.2 g/dL AGRATIO 1.4 1.1-1.8 ALP 125 38-126 U/L H-PSA Reviewed date:03/22/2025 05:42:24 PM Interpretation:Normal Performing Lab: Notes/Report: PSASC 0.4 0.0-4.0 ng/ml REASON FOR VISIT med check Medications Medication SIG (Take, Route, Frequency, Duration) Notes Start Date End Date Status hydroCHLOROthiazide 12.5 MG 1 cap(s) ora lly once a day; Duration: 90 days Active Metoprolol Succinate ER 25 MG 1 tab(s) o rally twice a day; Duration: 90 days Active Celecoxib 200 MG Take 1 capsule by mouth once daily; Duration: 90 days Active Sildenafil Citrate 100 MG TAKE 1 TABLET BY MOUTH ONCE DAILY NEEDED; Duration: 50 Active Pantoprazole Sodium 40 MG 1 tablet Orall y Once a day; Duration: 90 days Active Atorvastatin [...] day Active Vital Signs Blood pressure systolic 132 mm Hg 03/19/20 25 Blood pressure diastolic 76 mm Hg 025 Heart Rate 56 /min 03/19/2025 Height 68 in 03/19/2025 Weight 226 lbs 03/19/2025 BMI 34.36 kg/m2 03/19/2025 Encounters Encounter [facility] Date [facility] [address] [id number] 03/19/2025 Star Tijerina Essential hypertensi on I10 ; Mixed hyperlipidemia E78.2 ; Hypertriglyceridemia E78.1 ; Gastroesophageal reflux disease, esophagitis presence not specified K21.9 ; Acute pain of left knee M25.562 and Prostate cancer screening Z12.5 Assessments Encounter Date Diagnosis (ICD Code) Assessment Notes Treatment Notes Treatment Clinical Notes Section Notes 03/19/2025 Essential hypertensi on (ICD-10 - I10) 03/19/2025 Mixed hyperlipidemia (ICD-10 - E78.2) 03/19/2025 Hypertriglyceridemia (ICD-10 - E78.1) 03/19/2025 Gastroesophageal ref lux disease, esophagitis presence not specified (ICD-10 - K21.9) 03/19/2025 Acute pain of left k nee (ICD-10 - M25.562) Rest, ice, compression and elevation 03/19/2025 Prostate cancer screening (ICD-10 - Z12.5) Plan Of Treatment Medication Medication Name Sig Start Date Stop Date Notes Pantoprazole Sodium 40 MG 1 tablet Orall y Once a day; Duration: 90 days Treatment Notes Assessment Notes Acute pain of left knee Rest, ice, compr ession and elevation Next Appt Details Follow Up: 6 Months, Reason: Provider Name:Star Lemon ry, 09/17/2025 09:45:00 AM, [address], [place], [place], [id number], Progress Notes * Chad STOVEReDOB:1955 (70 yo M)Acc No.[id number]:03/19/2025 Progress Notes Patient: Zuhair LAMB Provider: Chepe Tijerina M.D. :1955 A ge:69 Y S ex:Male Date:03/19/2025 Address:[address] [place] [address], [facility] Subjective: * Chief Complaints: * 1 . Med check. * HPI: C ardiology: 69 year old male presents with c/o BloodPressure at Home f or p P t here to f/u on Hypertension. Pt states he is doing well and does not have any concerns today. c/o Hyperlipidemia P t is fasting today. * ROS: D ERMATOLOGY: no R jose alfredo. n o H alisia. G ASTROENTEROLOGY: no N ausea. n o V omiting. U ROLOGY: no D ifficulty urinating. n o B lood in urine. * Medical History: P soriasis, Hiatal Hernia, Esophageal Reflux, RT Hip Fracture, s/p Fall at work 07/2017, NSTEMI, 04/2019, CAD, 04/2019. * Surgical History: L Najma Angela- Dr. Dwaine Granado 03/04/2017, RT Hip [...] affeine: yes, frequency:. Marital Status: . Occupation: [employer], [employer]. Past smoking status: no, quit smoking 1983 [...] BY MOUTH ONCE DAILY NEEDED , Taking Pantoprazole Sodium 40 MG Tablet Delayed Release 1 tablet Orally Once a day , Taking Celecoxib 200 MG Capsule Take 1 capsule by mouth once daily , Medication List reviewed and reconciled with the patient * Allergies: N .K.D.A. Objective: * Vitals: W t: 226, Temp: 97.7, BP: 132/76, HR: 56, Nurse: jl, Ht: 68, BMI:34.36. * Examination: C ardiology: General Appearance: p leasant, NAD. H EENT: u nremarkable. H eart sounds: R RR, normal S1, S2. L ungs: c lear, no rales or wheezes.?Extremities: n o leg edema, minimal tenderness to palpation over the medial portion of the right proximal tibia, small bruised area, normal knee ROM, normal gait. Assessment: * Assessment: 1. E ssential hypertension - I10 (Primary) 2 . M ixed hyperlipidemia - E78.2 3 . H ypertriglyceridemia - E78.1 4 . G astroesophageal reflux disease, esophagitis presence not specified - K21.9 5 . A cute pain of left knee - M25.562 6 . P rostate cancer screening - Z12.5 Plan: * Treatment: Value Reference Range W BC 7.6 4.8-10.8 - K/mm3 * R BC 4.89 4.60-6.20 - M/mm3 * H GB 14.8 14.1-18.0 - g/dL * H CT 43.8 42.0-52.0 - % * M CV 89.6 80-94 - fl * M CH 30.3 27.0-31.2 - pg * M CHC 33.8 31.8-35.4 - g/dL * R DW 12.9 11.5-17.5 - % * P LT 248 142-424 - K/mm3 * M PV 10.3 7.4-10.4 - fl * N E% 65.5 37.0-80.0 - % * L Y% 21.2 10-50 - % * M O% 9.2 1.7-9.3 - % * E O% 3.0 0.1-12.0 - % * B A% 0.8 0.1-2.0 - % * N E# 5.0 1.8-7.8 - K/mm3 * L Y# 1.6 0.7-4.5 - K/mm3 * M O# 0.7 0.1-1.0 - K/mm3 * E O# 0.2 0.0-0.4 - Kmm3 * B A# 0.1 0-0.2 - K/mm3 * R DW-SD 41.8 - fL * N RBC% 0 - % * N RBC# 0 - 10 3/uL * I G% 0.3 - % * I G# 0.02 - 10 3uL * Olive Suni 03/22/2025 05:4 2:16 PM EDT > See phone encounter ?LAB: H-Microalbumine/Creatinine (Collection Date & Time - 03/21/2025 08:23 AM)?Normal* Value Reference Range M ICROALB 10.600 0-16.7 - mg/L * U CREAT 205 Not Estab. - mg/dL * M ALBCREAT 5.1 - * Olive Suni 03/22/2025 05:4 2:16 PM EDT > See phone encounter ?LAB: H-CMP (Collection Date & Time - 03/21/2025 08:23 AM)?bun 26, Cr 1.3, gfr 55, gluc 117* Value Reference Range N A 138 136-145 - mmol/L * K 4.4 3.5-5.1 - mmoL/L * C L 99 98-107 - mmol/L * C O2 30 22.0-30.0 - mmol/L * G AP 13.4 5-15 - mEq/L * B UN 26 H 9-20 - mg/dl * C REATT 1.30 H 0.66-1.25 - mg/dl * G FRAA 66 >60 - ML/MIN * E GFR 55 L >60 - ml/min * G DEEPIKA 117 H 74-100 - mg/dl * C A 9.5 8.4-10.2 - mg/dl * B ILIT 1.0 0.2-1.3 - mg/dl * A ST 30 17-59 - U/L * A LT 25 12-78 - U/L * T P 6.7 6.3-8.2 - g/dl * A LB 3.9 3.5-5.0 - g/dl * G LOB 2.8 1.3-3.2 - g/dL * A GRATIO 1.4 1.1-1.8 - * A LP 125 38-126 - U/L * Olive Suni 03/22/2025 05:4 2:16 PM EDT > See phone encounter 2.?Mixed hyperlipidemia?LAB: H-TSH (Collection Date & Time - 03/21/2025 08:23 AM)?Normal* Value Reference Range T SH 1.65 0.465-4.68 - uIU/mL * OliveSuni oreilly 03/22/2025 05:4 2:16 PM EDT > See phone encounter ?LAB: H-Lipid Panel (Collection Date & Time - 03/21/2025 08:23 AM)?chol 129, dldl 59.93, hdl 39* Value Reference Range T RIG 86 30-150 - mg/dl * C HOL 129 L 140-200 - mg/dl * D LDL 59.93 L 100-129 - mg/dL * V LDL 17 0-40 - mg/dL * H DL 39 L 40-60 - mg/dl * C HLHDL 3.3 1-3.5 - * Suni Schaefer 03/22/2025 05:4 2:16 PM EDT > See phone encounter ?LAB: H-CMP (Collection Date & Time - 03/21/2025 08:23 AM)?bun 26, Cr 1.3, gfr 55, gluc 117* Value Reference Range N A 138 136-145 - mmol/L * K 4.4 3.5-5.1 - mmoL/L * C L 99 98-107 - mmol/L * C O2 30 22.0-30.0 - mmol/L * G AP 13.4 5-15 - mEq/L * B UN 26 H 9-20 - mg/dl * C REATT 1.30 H 0.66-1.25 - mg/dl * G FRAA 66 >60 - ML/MIN * E GFR 55 L >60 - ml/min * G DEEPIKA 117 H 74-100 - mg/dl * C A 9.5 8.4-10.2 - mg/dl * B ILIT 1.0 0.2-1.3 - mg/dl * A ST 30 17-59 - U/L * A LT 25 12-78 - U/L * T P 6.7 6.3-8.2 - g/dl * A LB 3.9 3.5-5.0 - g/dl * G LOB 2.8 1.3-3.2 - g/dL * A GRATIO 1.4 1.1-1.8 - * A LP 125 38-126 - U/L * Suni Schaefer 03/22/2025 05:4 2:16 PM EDT > See phone encounter 3.?Gastroesophageal reflux disease, esophagitis presence not specified? Refill Pantoprazole Sodium Tablet Delayed Release, 40 MG, 1 tablet, Orally, Once a day, 90 days, 90, Refills 1.??4.?Acute pain of left knee? Notes: Rest, ice, compression and elevation??5.?Prostate cancer screening?LAB: H-PSA (Collection Date & Time - 03/21/2025 08:23 AM)?Normal* Value Reference Range P SASC 0.4 0.0-4.0 - ng/ml * Suni Schaefer 03/22/2025 05:4 2:16 PM EDT > See phone encounter * Procedure Codes: G 2211 Complex e/m visit add on, 1036F TOBACCO NON-USER, G8950 PREHTN/HTN BP DOC INDCD F/U DOC, G8752 MOST RECENT SYSTOLIC BP < 140MM HG, G8754 MOST RECENT DIASTOLIC BP < 90MM HG * Follow Up: 6 Months * Images: Billing Information: * Visit Code: 82382 Office Visit, Est Pt., Level 4. * Procedure Codes: G2211 Complex e/m visit add on. 1036F TOBACCO NON-USER. G8950 PREHTN/HTN BP DOC INDCD F/U DOC. G8752 MOST RECENT SYSTOLIC BP < 140MM HG. G8754 MOST RECENT DIASTOLIC BP < 90MM HG. * Electronic signature of Shelby Tijerina MD on 08/16/2025 at 01:27 PM EST Sign off status: Pending * Provider: Chepe Tijerina M.D. Date: 0 03/19/2025 Generated for Shaynei ng/Falichag/eTransmitting on: 1 10/16/2024 01:27 PM EST History and Physical Notes * HPI (History of Present Illness) Category Sub-Category Detail Notes Category Not es Cardiology BloodPressure at Home Pt here to f/u on Hypertension. Pt states he is doing well and does not have any concerns today Hyperlipidemia Pt is fasting today Examination Category Sub-Category Detail Notes Category Not es Cardiology Lungs: clear, no rales or wheezes HEENT: unremarkable Heart sounds: RRR, normal S1, S2 Extremities: no leg edema, minima l tenderness to palpation over the medial portion of the right proximal tibia, small bruised area, normal knee ROM, normal gait General Appearance: pleasant, NAD
--- OUTSIDE RECORDS SUMMARY | 2025-05-22 06:00 | XMS_ITS ---
Author [facility] Address [address] [facility] [address] [place] [id number] Care Team Providers Care Briefcase Sewer Name Role Phone Star Tijerina Primary Care [...] Duration: 90 days Active Vital Signs Weight 227 lbs 05/22/2025 Blood pressure systolic 130 mm Hg 05/22/20 25 Blood pressure diastolic 82 mm Hg 025 Heart Rate 67 /min 05/22/2025 Height 68 in 05/22/2025 BMI 34.51 kg/m2 05/22/2025 Encounters Encounter Location Date Provider Diagnosis [place] [address] [facility] [address] [place] [id number] 05/22/2025 Star Tijerina Neoplasm of uncertai n [address], [place], [phone], Progress Notes * Chad STOVEReDOB:1955 (70 yo M)Acc No.[id number]:05/22/2025 Progress Notes Patient: Zuhair LAMB Provider: Chepe Tijerina M.D. :1955 A ge:70 Y S ex:Male Date:05/22/2025 Address:[address] [place] [address], [place] Subjective: * Chief Complaints: * 1 . [...] affeine: yes, frequency:. Marital Status: . Occupation: [employer]. Past smoking status: no, quit smoking 1983 [...] * Images: Billing Information: * Visit Code: 91691 Office Visit, Est Pt., Level 3. * Procedure Codes: G2211 Complex e/m [place] add on. 1036F TOBACCO NON-USER. G8783 BP SCR PRFRM RCMDD DEFIND SCR INTVL. G8752 MOST RECENT SYSTOLIC BP < 140MM HG. G8754 MOST RECENT DIASTOLIC BP < 90MM HG. * Electronic signature of Shelby Tijerina MD on 08/16/2025 at 01:26 PM EST Sign off status: Pending * Provider: Chepe Tijerina M.D. Date: 0 05/22/2025 Generated for Kristine farias/Charmaine/Wesleyransmitting on: 10/16/2024 01:26 PM EST History and Physical Notes * [...]
--- OUTSIDE RECORDS SUMMARY | 2025-06-05 04:30 | XMS_ITS ---
Author Organization [facility] Address [address] [place] [phone] Care Team Providers Care Mold Blower Name Role Phone Star Tijerina Primary Care [...] 1A, 12/26. 2. Received in formalin labeled [place], Zuhair and Rt upper chest is a [...] 11/25. (HMR,RR13,mlm) Grossing services provided by [facility], [facility], d/b/a [address] [place], [address] Vinay Woodson MD, Sensor Specialist. Microscopic Description: 1. There are nests of [...] of Report Technical services provided by [facility], [facility], d/b/a [address] , [place] [address] Vinay Woodson MD, Sensor Specialist. Case reviewed and diagnosis rendered at [facility], [facility], d/b/a [address] , [place] [address] Vinay Woodson MD, Sensor Specialist. CONFIDENTIAL REASON FOR VISIT 2 weeks Medications [...] Notes Problem Squamous cell carcinoma of skin (394842763) SCC (squamous cell carcinoma) (C44.92) Active confirmed Problem Basal cell carcinoma of skin (490591351) Basal cell carcinoma (BCC), unspecified site (C44.91) Active confirmed Vital Signs Weight 228.6 lbs 06/05/2025 Blood pressure systolic 130 mm Hg 06/05/20 25 Blood pressure diastolic 68 mm Hg 025 Heart Rate 56 /min 06/05/2025 Height 68 in 06/05/2025 BMI 34.75 kg/m2 06/05/2025 Encounters Encounter Location Date Provider Diagnosis [facility] [address] [phone] 06/05/2025 Star Tijerina Neoplasm of uncertai n behavior [...] [address], [place], [id number], Procedure Notes * Category Sub-Category Detail Notes [...] blade was used to harvest a territory representative specimen, light electrocautery of excision site [...] Notes * Chad STOVEReDOB:1955 (70 yo M)Acc No.[id number]:06/05/2025 Progress Notes Patient: Zuhair LAMB Provider: Chepe Tijerina M.D. :1955 A ge:70 Y S ex:Male Date:06/05/2025 Address:[address], [place] Subjective: * Chief Complaints: * 1 . [...] affeine: yes, frequency:. Marital Status: . Occupation: [employer]. Past smoking status: no, quit smoking 1982 [...] blade was used to harvest a territory representative specimen, light electrocautery of excision site [...] * Images: Billing Information: * Visit Code: 83710 Office Visit, Est Pt., Level 2. Modifiers: 25 * Procedure Codes: 50081 SHAVE LESION,TRUNK,ARMS,LEGS 0.6 TO 1.0 CM. Units: 2.00. G2211 Complex e/m visit add on. * Electronic signature of Shelby Tijerina MD on 08/16/2025 at 01:24 PM EST Sign off status: Pending * Provider: Chepe Tijerina M.D. Date: 0 06/05/2025 Generated for Kristine farias/Charmaine/Fabbyitting on: 10/16/2024 01:24 PM EST History and Physical Notes * [...]
--- OUTSIDE RECORDS SUMMARY | 2025-07-31 06:15 | XMS_ITS ---
[facility] Address [address] [place] [id number] Care Team Providers Care Buckshot Swage Operator Name Role Phone Star Tijerina Primary Care Provider [phone] Allergies No Known Allergies Reason For Referral Reason Try [facility] or [facility] in [place] Diagnosis 1 Plaque psoriasis (L4 0.0) Referral Organization [facility] Referring Provider First Name Star Referring Provider Last Name Lilliana Referring Provider Speciality Family Pra ctice Referred Provider Dermatology, . Referred Provider Specialty Dermatology General Notes Gay Paez 2024 12:06:04 PM > faxed referral to [facility] at [facility] Referral Priority Routine REASON FOR VISIT referral for hands Medications Medication SIG (Take, Route, Frequency, Duration) Notes Start Date End Date Status Pantoprazole Sodium 40 MG 1 tablet Orall y Once a day; Duration: 90 days Active Metoprolol [...] mouth once daily; Duration: 90 days Active Losartan Potassium 100 MG 1 tab(s) orall y once a day Active CoQ10 30 MG 1 cap(s) orally once a day Active Aspirin Adult Low Dose 81 MG 1 tab(s) or ally once a day Active Clopidogrel Bisulfate 75 MG 1 tab(s) ora lly once a day Active Atorvastatin Calcium 80 MG 1 tab(s) oral ly once a day; Duration: 90 days Active hydroCHLOROthiazide 50 MG 1 tablet in th e morning Orally Once a day Active Nitroglycerin 0.4 MG 1 tablet under the tongue and allow to dissolve as needed. Take every 5 minutes up to 3 times if chest pain persists Sublingual Three times a day Active amLODIPine Besylate 5 MG 1 tablet Orally Once a day Active Vital Signs Weight 231.2 lbs 07/31/2025 Blood pressure systolic 128 mm Hg 07/31/20 25 Blood pressure diastolic 76 mm Hg 025 Heart Rate 47 /min 07/31/2025 Height 68 in 07/31/2025 BMI 35.15 kg/m2 07/31/2025 Encounters Encounter Location Date Provider Diagnosis [facility] [address] [place] [address] [address] [facility] [address] [place] [phone] 07/31/2025 Star Tijerina Plaque psoriasis L40 .0 Assessments Encounter Date Diagnosis (ICD Code) Assessment Notes Treatment Notes Treatment Clinical Notes Section Notes 07/31/2025 Plaque psoriasis (ICD-10 - L40.0) Plan Of Treatment Referrals Referral Date Details 07/31/2025 07/31/2025, Try [facility] or [facility] in [facility] Dermatology Next Appt Details Follow Up: prn, Reason: Provider Name:Star Lemon ry, 09/17/2025 09:45:00 AM, [facility] [address] [facility], [address], [place], [id number], Progress Notes * Chad STOVEReDOB:1955 (70 yo M)Acc No.[id number]:07/31/2025 Progress Notes Patient: Zuhair LAMB Provider: Chepe Tijerina M.D. :1955 A ge:70 Y S ex:Male Date:07/31/2025 Address:[address], [place] Subjective: * Chief Complaints: * 1 . Referral for hands. * HPI: D ermatology: 70 year old male presents with c/o Dry Skin P t presents today to discuss getting a referral to dermatology for his hands. Pt has really dry and cracked skin on the palms of his hands. Pt sts that he was seeing a electronic health records specialist in [place], and they were giving him injections that were helping but sts that he has not been in a while and would like to see someone closer if possible. * Medical History: P soriasis, Hiatal Hernia, [...] affeine: yes, frequency:. Marital Status: . Occupation: [employer]. Past smoking status: no, quit smoking 1983 after smoking 22 yrs. Alcohol: no. * Medications: T aking amLODIPine Besylate 5 MG Tablet 1 tablet Orally Once a day , Taking hydroCHLOROthiazide 50 MG Tablet 1 tablet in the morning Orally Once a day , Taking Nitroglycerin 0.4 MG Tablet Sublingual 1 tablet [...] N .K.D.A. Objective: * Vitals: W t: 231.2, Temp: 98.0, BP: 128/76, HR: 47, Nurse: MARYAN, Ht: 68, BMI:35.15. * Examination: G eneral Examination: General Appearance: N AD. S kin: t hick scaling rash over both hands consists of plaques with silver scaling. Assessment: * Assessment: 1. P [place] psoriasis - L40.0 (Primary) Plan: * Treatment: * Procedure Codes: G 2211 Complex e/m visit add on * Follow Up: p rn * Images: Billing Information: * Visit Code: 02167 Office Visit, Est Pt., Level 3. * Procedure Codes: G2211 Complex e/m visit add on. * Electronic signature of Shelby Tijerina MD on 08/16/2025 at 01:25 PM EST Sign off status: Pending * Provider: Chepe Tijerina M.D. Date: 09/30/2024 Generated for Kristine farias/Charmaine/Wesleyransmitting on: 10/16/2024 01:25 PM EST History and Physical Notes * HPI (History of Present Illness) Category Sub-Category Detail Notes Category Not es Dermatology Dry Skin Pt presents toda to discuss getting a referral to dermatology for his hands. Pt has really dry and cracked skin on the palms of his hands. Pt sts that he was seeing a electronic health records specialist in [place], and they were giving him injections that were helping but sts that he has not been in a while and would like to see someone closer if possible Examination Category Sub-Category Detail Notes Category Not es General Examination General Appearance: NAD Skin: thick scaling rash o peter both hands consists of plaques with silver scaling Consultation Request Notes Referral Date Referring Provider Referred Provider Not tawanda 07/31/2025 Star Tijerina Dermatology, . Try [facility] or [facility] in [place]
--- OUTSIDE RECORDS SUMMARY | 2025-08-16 13:24 | XMS_ITS | Clinical Summary ---
Author Organization [facility] Address [address] [place] [address] Phone [email or web address] Care Team Providers Care Belt Knife Feeder Name Role Phone Reymundo Morgan Primary Care [...] 2) 2005 Covid-19 Immunization (1 - 2 -26 season) 2025 Influenza Immunization (#1) 2025 HIB [...] Insurance [place] [address] [facility] [id number] [place] [address] Care Teams Belt Knife Feeder Relationship Specialty Start Date End Date Reymundo Morgan PCP - General 06/20/19
--- OUTSIDE RECORDS SUMMARY | 2025-08-16 13:26 | XMS_ITS | Clinical Summary ---
Author Organization [facility] Address [address] [place] [address] Care Team Providers Care Cash Shortage Investigator Name Role Phone None, Physician Primary Care [...] WORK [employer] Care Teams Cash Shortage Investigator Relationship Specialty Start Date End Date None, Physician PCP - General 01/05/17
--- OUTSIDE RECORDS SUMMARY | 2025-08-16 13:26 | XMS_ITS | Patient Health Record ---
Author Organization [facility] [place] Address [address] [facility] [address] [place] [id number] Care Team Providers Care Business Analysis Analyst Name Role Phone Star Tijerina Primary Care Provider Allergies No Known Allergies Results Component Value Reference Range Notes Urinalysis - Inhouse Reviewed date:02/03/2025 10:12:49 AM Interpretation: Performing Lab: Notes/Report: Color/Clarity yellow/clear Leuk Neg Nitrite Neg Urobili 16 Protein Neg pH 7.5 Blood Neg Sp. Gr. 1.020 Ketone Neg Bili Neg Gluc Neg P-Surgical Pathology Reviewed date:06/08/2025 04:48:33 PM Interpretation: [...] Received in formalin labeled Zuhair Stover and Lt upper arm is a [...] 1A, 12/26. 2. Received in formalin labeled [place], Zuhair and Rt upper chest is a [...] 2A, 11/25. (HMR,RR13,mlm) Grossing services provided by [facility], [facility], d/b/a [address] [place], [address] Vinay Woodson MD, Software Build Engineer. Microscopic Description: 1. There are nests of [...] End of Report Technical services provided by [facility], [facility], d/b/a [address] , [place] [address] Vinay Woodson MD, Software Build Engineer. Case reviewed and diagnosis rendered at [facility], [facility], d/b/a [address] , [place] [address] Vinay Woodson MD, Software Build Engineer. CONFIDENTIAL H-PSA Reviewed date:03/22/2025 05:42:24 PM Interpretation:Normal Performing Lab: Notes/Report: PSASC 0.4 0.0-4.0 ng/ml H-CMP Reviewed date:03/22/2025 05:42:24 PM Interpretation:bun 26, [...] AGRATIO 1.4 1.1-1.8 ALP 125 38-126 U/L H-Lipid Panel Reviewed date:03/22/2025 05:42:24 PM Interpretation:chol 129, dldl 59.93, hdl 39 Performing Lab: Notes/Report: Patient Fasting? Y TRIG 86 30-150 mg/dl CHOL 129 140-200 mg/dl DLDL 59.93 100-129 mg/dL VLDL 17 0-40 mg/dL HDL 39 40-60 mg/dl CHLHDL 3.3 1-3.5 H-Microalbumine/Creatinine Reviewed date:03/22/2025 05:42:24 PM Interpretation:Normal Performing Lab: Notes/Report: UCREAT 205 Not Estab. mg/dL Random urine reference range not established. 24 hour urine samples recommended. MICROALB 10.600 0-16.7 mg/L MALBCREAT 5.1 Units: mg/g creat Normal: 0 - 29 Moderately Increased: 30 - 300 Severely Increased: >300 H-CBC Reviewed date:03/22/2025 05:42:24 PM Interpretation:Normal Performing [...] 0.1 0-0.2 K/mm3 NRBC# 0 IG# 0.02 H-TSH Reviewed date:03/22/2025 05:42:24 PM Interpretation:Normal Performing Lab: Notes/Report: TSH 1.65 0.465-4.68 uIU/mL Medications Medication SIG (Take, Route, Frequency, Duration) Notes Start Date End Date Status Losartan Potassium 100 MG 1 tab(s) orall y once a day Active hydroCHLOROthiazide 50 MG 1 tablet in morning Orally Once a day Active Pantoprazole Sodium 40 MG 1 tablet Orall y Once a day; Duration: 90 days Active Nitroglycerin 0.4 MG 1 tablet under the tongue and allow to dissolve as needed. Take every 5 minutes up to 3 times if chest pain persists Sublingual Three times a day Active CoQ10 30 MG 1 cap(s) orally once a day Active Aspirin Adult Low Dose 81 MG 1 tab(s) or ally once a day Active Metoprolol Succinate ER 25 MG 1 tab(s) o rally twice a day; Duration: 90 days Active hydroCHLOROthiazide 12.5 MG 1 cap(s) ora lly once a day; Duration: 90 days Active Sildenafil Citrate 100 MG TAKE 1 TABLET BY MOUTH ONCE DAILY NEEDED; Duration: 50 Active amLODIPine Besylate 5 MG 1 tablet Orally Once a day Active Celecoxib 200 MG Take 1 capsule by mouth once daily; Duration: 90 days Active Clopidogrel Bisulfate 75 MG 1 tab(s) ora lly once a day Active Atorvastatin Calcium 80 MG 1 tab(s) oral ly once a day; Duration: 90 days Active Immunizations Vaccine Route Administration Date Status Comme nts tuberculin (ppd) ID Intradermal 11/23/2011 Administered Problems Problem Type SNOMED Code ICD Code Onset Dates Problem Status W/U Status Risk Notes Problem Essential hypertension (74538857) Essential hypertension (I10) Active confirmed Problem Hypertriglyceridemia (806797276) Hypertriglyceridemia (E78.1) Active confirmed Problem Mixed hyperlipidemia (913802835) Mixed hyperlipidemia (E78.2) Active confirmed Problem 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 (008630023689451) Coronary artery disease involving lovelock coronary artery of lovelock heart without angina pectoris (I25.10) Active confirmed Problem Gastroesophageal reflux disease (637518877) Gastroesophageal reflux disease, esophagitis presence not specified (K21.9) Active confirmed Problem Stented coronary artery (293828508) Stented coronary artery (Z95.5) Active confirmed Problem Acute non-ST segment elevation myocardial infarction (447615304) Non-STEMI (non-ST elevated myocardial infarction) (I21.4) Active confirmed Problem Stricture of esophagus (89310589) Schatzki's ring of distal esophagus (K22.2) Active confirmed Problem Basal cell carcinoma of skin (939553327) Basal cell carcinoma (BCC), unspecified site (C44.91) Active confirmed Problem Squamous cell carcinoma of skin (846313762) SCC (squamous cell carcinoma) (C44.92) Active confirmed Vital Signs Heart Rate 47 /min 07/31/2025 Blood pressure diastolic 76 mm Hg 07/31/2025 Height 68 in 07/31/2025 Blood pressure systolic 128 mm Hg 07/31/2025 Weight 231.2 lbs 07/31/2025 BMI 35.15 kg/m2 07/31/2025 Encounters Encounter Location Date Provider Diagnosis [facility] [address] [place], [place] [id number] 02/02/2025 Star Tijerina 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 Z02.4 [facility] [address] [facility] [address] [place], [place] [id number] 03/19/2025 Star Ola Essential hypertensi on I10 ; Mixed hyperlipidemia E78.2 ; Hypertriglyceridemia E78.1 ; Gastroesophageal reflux disease, esophagitis presence not specified K21.9 ; Acute pain of left knee M25.562 and Prostate cancer screening Z12.5 [facility] [address] [facility] [address] [place], [place] [id number] 05/22/2025 Star Ola Neoplasm of uncertai n behavior of skin of upper extremity D48.5 and Neoplasm of uncertain behavior of skin of chest D48.5 [facility] [address] [facility] [address] [place], [place] [id number] 06/05/2025 Star Ola Neoplasm of uncertai n behavior of skin of chest D48.5 ; Neoplasm of uncertain behavior of skin of upper arm D48.5 ; SCC (squamous cell carcinoma) C44.92 and Basal cell carcinoma (BCC), unspecified site C44.91 [facility] [address] [place], [place] [id number] 07/31/2025 Star Ola Plaque psoriasis L40 .0 [facility] [address] [place], [place] [id number] 03/22/2025 Star Ola [facility] [address] [facility] [address] [place], [place] [id number] 04/09/2025 Star Ola Screening for colon cancer Z12.11 [facility] [address] [facility] [address] [place], [place] [id number] 06/08/2025 Star Ola Assessments Encounter Date Diagnosis (ICD Code) Assessment [...] skin of upper extremity (ICD-10 - D48.5) 06/05/2025 Neoplasm of uncertai n behavior of skin of chest (ICD-10 - D48.5) 06/05/2025 Neoplasm of uncertai n behavior of skin of upper arm (ICD-10 - D48.5) 03/19/2025 Mixed hyperlipidemia (ICD-10 - E78.2) 07/31/2025 Plaque psoriasis (ICD-10 - L40.0) 03/19/2025 Hypertriglyceridemia (ICD-10 - E78.1) 06/05/2025 SCC (squamous cell carcinoma) (ICD-10 - C44.92) 03/19/2025 Gastroesophageal ref lux disease, esophagitis presence [...] Cologuard 04/09/2025 Next Appt Details Provider Name:Star Najma Lemon ry, 09/17/2025 09:45:00 AM, [address], [address], [place], [place], [id number], Insurance Providers Payer Name Payer Address Payer Phone Subscriber Number Group Number Insured Name Patient Relationship to Insured Coverage Start Date Coverage End Date [employer] (MEDICARE) [address] [address] [place] [address] [id number] Jolanta Zuhair Self - patient is the insured MEDICARE PART B [address] [address] [facility] [place] [address] [id number] JolantaChade Self - patient is the insured Medical (General) History Medical History History ICD Code Psoriasis Hiatal Hernia Esophageal Reflux RT Hip Fracture, s/p Fall at work 7 NSTEMI, 04/2019 CAD, 04/2019 Surgical History Surgery Date(Month/Year) LT Foot- Dr. Dwaine Granado 7 RT Hip Replacement 07/2017 Cardiac Stent x5 05/16/2019 Hospitalization History Reason Date(Month/Year) [facility] - NSTEMI, Stent Placement 05/16-17/11 019
--- OUTSIDE RECORDS SUMMARY | 2025-08-16 13:27 | XMS_ITS | Clinical Summary ---
Author Organization [facility] Address [address] [place] [address] Care Team Providers Care Website/Blog Editor Name Role Phone Star Tijerina MD Primary Care Provider [phone] Social History Tobacco Use Types Packs/Day Years [...] 2005 UKY-Zoster Vaccines (1 of 2) 2005 [id number] Vaccine (1 - 20 25-26 season) 2025 UKY-Influenza Vaccine (#1) 2025 UKY-RSV [...] age to complete this topic Care Teams Website/Blog Editor Relationship Specialty Start Date End Date Star Tijerina MD [address] [place] [address], [place] [address] PCP - General 02/07/21
== END ==
LOC: SL 12:01
PROVIDERS: PCP Family Medicine; Visit Provider Internal Medicine Pulmonary Disease
DX: G47.30 Sleep apnea, unspecified (principal)
CPT/HCPCS: 94762

== ENCOUNTER 2025-08-17 07:24 | Outpatient (CLI) | payer MEDICARE, SELFPAY ==
--- OUTSIDE RECORDS SUMMARY | 2024-03-21 05:00 | XMS_ITS ---
[facility] Address [address] [facility] [address] [place] [id number] Care Team Providers Care Prototype Engineer Name Role Phone Star Tijerina Primary Care Provider Allergies No Known Allergies Results Component Value Reference Range Notes Urinalysis - Inhouse Reviewed date:03/21/2024 12:38:34 PM Interpretation: Performing Lab: Notes/Report: Color/Clarity yellow/clear Leuk neg Nitrite neg Urobili 16 Protein neg pH 7.0 Blood neg Sp. Gr. 1.015 Ketone neg Bili neg Gluc neg REASON FOR VISIT CDL physical Medications Medication SIG (Take, Route, Frequency, Duration) Notes Start Date End Date Status Clopidogrel Bisulfate 75 MG 1 tab(s) ora lly once a day Active Losartan Potassium 100 MG 1 tab(s) orall y once a day Active Aspirin Adult Low Dose 81 MG 1 tab(s) or ally once a day Active CoQ10 30 MG 1 cap(s) orally once a day Active Sildenafil Citrate 100 MG TAKE 1 TABLET BY MOUTH ONCE DAILY NEEDED; Duration: 50 Active Pantoprazole Sodium 40 MG Take 1 tablet by mouth once daily; Duration: 90 Active CeleBREX 200 MG 1 cap(s) orally once a day; Duration: 90 days Active hydroCHLOROthiazide 12.5 MG 1 cap(s) ora lly once a day; Duration: 90 days Active Metoprolol Succinate ER 25 MG 1 tab(s) o rally twice a day; Duration: 90 days Active Atorvastatin Calcium 80 MG 1 tab(s) oral ly once a day; Duration: 90 days Active Vital Signs Blood pressure systolic 130 mm Hg 03/21/20 24 Blood pressure diastolic 70 mm Hg 024 Heart Rate 56 /min 03/21/2024 Height 68 in 03/21/2024 Weight 226 lbs 03/21/2024 BMI 34.36 kg/m2 03/21/2024 Encounters Encounter Location Date Provider Diagnosis [facility] [address] [place] [id number] 03/21/2024 Star Tijerina 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 Z02.4 Assessments Encounter Date Diagnosis (ICD Code) Assessment Notes Treatment Notes Treatment Clinical Notes Section Notes 03/21/2024 Encounter for Department of Transportation (DOT) examination for deny license (ICD-10 - Z02.4) Plan Of Treatment Next Appt Details Follow Up: prn, Reason: Provider Name:Star Lemon ry, 09/17/2025 09:45:00 AM, [address], [address], [place], [id number], Progress Notes * Chad STOVEReDOB:1955 (70 yo M)Acc No.[id number]:03/21/2024 Physical Patient: Zuhair LAMB Provider: Chepe Tijerina M.D. :1955 A ge:68 Y S ex:Male Date:03/21/2024 Address:[address] [place] [address], [id number] Subjective: * Chief Complaints: * 1 . CDL physical. 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 Patient saw cardiology at [facility] yesterday for his 6 months follow up visit. * ROS: D ERMATOLOGY: no R jose alfredo. n o H alisia. G ASTROENTEROLOGY: no N ausea. n o V omiting. U ROLOGY: no D ifficulty urinating. n o B lood in urine. * Medical History: P soriasis, Hiatal Hernia, Esophageal Reflux, RT Hip Fracture, s/p Fall at work 07/2017, NSTEMI, 04/2019, CAD, 04/2019. * Surgical History: Sharon Angela- Dr. Dwaine Granado 03/04/2017, RT Hip Replacement 07/2017, Cardiac Stent x5 05/16/2019. * Hospitalization/Major Diagno stic Procedure: H [facility] - NSTEMI, Stent Placement 05/16-. * Family History: F ather: alive. M other: . M aternal aunt: cancer. 2 brother(s) , 3 sister(s) - healthy. 1 daughter(s) - healthy. . * Social History: C URRENT TOBACCO USE S moking Status: Patient does NOT smoke. C affeine: yes, frequency:. Marital Status: . Occupation: [employer], [employer]. Past smoking status: no, quit smoking 1983 after smoking 22 yrs. Alcohol: no. * Medications: T aking CoQ10 30 MG Capsule 1 cap(s) orally once a day , Taking Aspirin Adult Low Dose 81 MG Tablet Delayed Release 1 tab(s) orally once a day , Taking Losartan Potassium 100 MG Tablet 1 tab(s) orally once a day , Taking Clopidogrel Bisulfate 75 MG Tablet 1 tab(s) orally once a day , Taking Atorvastatin Calcium 80 MG Tablet 1 tab(s) orally once a day , Taking Metoprolol Succinate ER 25 MG Tablet Extended Release 24 Hour 1 tab(s) orally twice a day , Taking hydroCHLOROthiazide 12.5 MG Capsule 1 cap(s) orally once a day , Taking CeleBREX 200 MG Capsule 1 cap(s) orally once a day , Taking Pantoprazole Sodium 40 MG Tablet Delayed Release Take 1 tablet by mouth once daily , Taking Sildenafil Citrate 100 MG Tablet TAKE 1 TABLET BY MOUTH ONCE DAILY NEEDED , Medication List reviewed and reconciled with the patient * Allergies: N .K.D.A. Objective: * Vitals: W t:226, Temp:97.8, BP:130/70, HR:56, Nurse:ernesto, Ht: 68, Visual Acuity: Left eye:20/40, Right eye:20/30, Both eyes:20/25, Color:Pass, Comments:Without glasses, BMI:34.36. * Examination: G eneral Examination: General Appearance: N AD. H EENT: u nremarkable.?Oral cavity: n o lesions, mucosa moist and WNL, no erythema. N minnie: s upple, no lymphadenopathy. C hest: n ormal shape and expansion. H eart: R SR. L ungs: c lear to auscultation. A bdomen: bowel sounds present, soft and nontender. N eurologic Exam: I ntact, gait normal. S kin: n ormal, no rash. P eripheral pulses: n ormal (2+) bilaterally. E xtremities: n o leg edema. Assessment: * Assessment: 1. E ncounter for Department of Transportation (DOT) examination for deny license - Z02.4 (Primary) Plan: * Treatment: Value Reference Range C olor/Clarity yellow/clear * L euk neg * N itrite neg * U robili 16 * P rotein neg * p H 7.0 * B lood neg * S p. Gr. 1.015 * K etone neg * B reymundo neg * G azul neg * Yuliana Garvin 03/21/2024 9:58:14 AM > , Provider reviewed results while patient in office. * Procedure Codes: 8 1002 Urinalysis, no micro, 23946 VISUAL ACUITY SCREEN * Follow Up: p rn * Images: Billing Information: * Visit Code: 10394 Preventive Care Est Pt. Age 65 and over. * Procedure Codes: 83941 Urinalysis, no micro. 22707 VISUAL ACUITY SCREEN. * Electronic signature of Shelby Tijerina MD on 08/17/2025 at 07:26 AM EST Sign off status: Pending * Provider: Chepe Tijerina M.D. 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 Patient saw cardiology at [facility] yesterday for his 6 months follow up visit Examination Category Sub-Category Detail Notes Category Not es General Examination HEENT: unremarkable Heart: RSR Lungs: clear to auscultatio n Abdomen: bowel sounds present , soft and nontender Extremities: no leg edema General Appearance: NAD Skin: normal, no rash Neurologic Exam: Intact, gait normal Neck: supple, no lymphaden opathy Oral cavity: no lesions, mucosa m oist and WNL, no erythema Peripheral pulses: normal (2+) bilatera lly Chest: normal shape and exp ansion
--- OUTSIDE RECORDS SUMMARY | 2025-02-02 06:15 | XMS_ITS ---
Author Organization [facility] Address [address] [facility] [address] [place] [phone] Care Team Providers Care Park Superintendent Name Role Phone Star Tijerina Primary Care Provider Allergies No Known Allergies Results Component Value Reference Range Notes Urinalysis - Inhouse Reviewed date:02/03/2025 10:12:49 AM Interpretation: Performing Lab: Notes/Report: Color/Clarity yellow/clear Leuk Neg Nitrite Neg Urobili 16 Protein Neg pH 7.5 Blood Neg Sp. Gr. 1.020 Ketone Neg Bili Neg Gluc Neg REASON FOR VISIT CDL physical Medications Medication SIG (Take, Route, Frequency, Duration) Notes Start Date End Date Status Pantoprazole Sodium 40 MG 1 tablet Orall y Once a day; Duration: 15 days Active Sildenafil Citrate 100 MG TAKE 1 TABLET BY MOUTH ONCE DAILY NEEDED; Duration: 50 Active Celecoxib 200 MG Take 1 capsule by mouth once daily; Duration: 90 days Active Metoprolol Succinate ER 25 MG 1 tab(s) o rally twice a day; Duration: 90 days Active hydroCHLOROthiazide 12.5 MG 1 cap(s) ora lly once a day; Duration: 90 days Active Atorvastatin Calcium 80 MG 1 tab(s) oral ly once a day; Duration: 90 days Active Losartan Potassium 100 MG 1 tab(s) orall y once a day Active Clopidogrel Bisulfate 75 MG 1 tab(s) ora lly once a day Active CoQ10 30 MG 1 cap(s) orally once a day Active Aspirin Adult Low Dose 81 MG 1 tab(s) or ally once a day Active Vital Signs Blood pressure systolic 128 mm Hg 02/03/20 25 Blood pressure diastolic 74 mm Hg 025 Heart Rate 56 /min 02/02/2025 Height 68 in 02/02/2025 Weight 231 lbs 02/02/2025 BMI 35.12 kg/m2 02/02/2025 Encounters Encounter Location Date Provider Diagnosis [facility] [address] [place] [phone] 02/02/2025 Star Tijerina 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 Z02.4 Assessments Encounter Date Diagnosis (ICD Code) Assessment Notes Treatment Notes Treatment Clinical Notes Section Notes 02/02/2025 Encounter for Department of Transportation (DOT) examination for deny license (ICD-10 - Z02.4) Plan Of Treatment Next Appt Details Follow Up: prn, Reason: Provider Name:Star Lemon ry, 09/17/2025 09:45:00 AM, [address], [address], [place], [phone], Progress Notes * Chad STOVEReDOB:1955 (70 yo M)Acc No.[id number]:02/02/2025 Physical Patient: Zuhair LAMB Provider: Chepe Tijerina M.D. 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 * ROS: D ERMATOLOGY: no R jose alfredo. n o H alisia. G ASTROENTEROLOGY: no N ausea. n o V omiting. U ROLOGY: no D ifficulty urinating. n o B lood in urine. * Medical History: P soriasis, Hiatal Hernia, Esophageal Reflux, RT Hip Fracture, s/p Fall at work 07/2017, NSTEMI, 04/2019, CAD, 04/2019. * Surgical History: L T Foot- Dr. Dwaine Granado 03/04/2017, RT Hip Replacement [...] affeine: yes, frequency:. Marital Status: . Occupation: [employer], [employer]. Past smoking status: no, quit smoking 1982 [...] cap(s) orally once a day , Taking Sildenafil Citrate 100 MG Tablet TAKE 1 TABLET BY MOUTH ONCE DAILY NEEDED , Taking Celecoxib 200 MG Capsule Take 1 capsule by mouth once daily , Taking Pantoprazole Sodium 40 MG Tablet Delayed Release 1 tablet Orally Once a day , Medication List reviewed and reconciled with the patient * Allergies: N .K.D.A. Objective: * Vitals: W t: 231, Temp: 98.0, BP: 128/74, HR: 56, Nurse: ernesto, Ht: 68, Visual Acuity: Left eye:20/25, Right eye:20/20, Both eyes:20/25, Color:Pass, Comments:With glasses, BMI:35.12. * Examination: G eneral Examination: General Appearance: [...] Range C olor/Clarity yellow/clear * L euk Neg * N itrite Neg * U robili 16 * P rotein Neg * p H 7.5 * B lood Neg * S p. Gr. 1.020 * K etone Neg * B reymundo Neg * G azul Neg * Yuliana Garvin 02/02/2025 11:40:5 2 AM > Provider reviewed results while patient in office.Star Tijerina 02/03/2025 10:12:44 AM > * Procedure Codes: 8 1002 Urinalysis, no micro, 01185 VISUAL ACUITY SCREEN * Follow Up: p rn * Images: Billing Information: * Visit Code: 70775 Preventive Care Est Pt. Age 65 and over. * Procedure Codes: 04696 Urinalysis, no micro. 17714 VISUAL ACUITY SCREEN. * Electronic signature of Shelby Tijerina MD on 08/17/2025 at 07:26 AM EST Sign off status: Pending * Provider: Chepe Tijerina M.D. 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
--- OUTSIDE RECORDS SUMMARY | 2025-03-19 05:15 | XMS_ITS ---
Author Organization [facility] Address [address] [place] [phone] Care Team Providers Care Capacity Planning Analyst Name Role Phone Star Tijerina Primary Care Provider [phone] Allergies No Known Allergies Results Component Value [...] 03/19/2025 Encounters Encounter Location Date [facility] [address] [phone] 03/19/2025 Star Tijerina Essential hypertensi on I10 [...] [address], [address], [place], [place], [phone], Progress Notes * Chad STOVEReDOB:1955 (70 yo M)Acc No.[id number]:03/19/2025 Progress Notes Patient: Zuhair LAMB Provider: Chepe Tijerina M.D. :1955 A ge:69 Y S ex:Male Date:03/19/2025 Address:[address] [place] [address], [facility] Subjective: * Chief Complaints: * 1 . [...] affeine: yes, frequency:. Marital Status: . Occupation: [employer]. Past smoking status: no, quit smoking 1983 [...] * Images: Billing Information: * Visit Code: 19714 Office Visit, Est Pt., Level 4. * [...] 03/19/2025 Generated for Shaynei ng/Falichag/eTransmitting on: 1 10/17/2024 07:26 AM EST History and Physical [...]
--- OUTSIDE RECORDS SUMMARY | 2025-05-22 06:00 | XMS_ITS ---
[facility] Address [address] [facility] [address] [place] [phone] Care Team Providers Care Electron Tube Assembler Name Role Phone Star Tijerina Primary Care Provider [phone] Allergies No Known Allergies REASON FOR VISIT [...] Provider Diagnosis [place] [address] [facility] [address] [place] [id number] 05/22/2025 Star Tijerina Neoplasm of uncertai n [address], [address], [place], [phone], Progress Notes * Chad STOVEReDOB:1955 (70 yo M)Acc No.[id number]:05/22/2025 Progress Notes Patient: Zuhair LAMB Provider: Chepe Tijerina M.D. :1955 A ge:70 Y S ex:Male Date:05/22/2025 Address:[address] [place] [address], [place] Subjective: * Chief Complaints: * 1 . [...] affeine: yes, frequency:. Marital Status: . Occupation: [employer], [employer]. Past smoking status: no, quit smoking 1983 [...] * Images: Billing Information: * Visit Code: 98976 Office Visit, Est Pt., Level 3. * [...] 05/22/2025 Generated for Kristine farias/Charmaine/Breannasmitting on: 1 10/17/2024 07:26 AM EST History [...]
--- OUTSIDE RECORDS SUMMARY | 2025-06-05 04:30 | XMS_ITS ---
Author Organization [facility] Address [address] [place] [phone] Care Team Providers Care Toe Puller Name Role Phone Star Tijerina Primary Care Provider [phone] Allergies No Known Allergies Results Component Value Reference Range Notes P-Surgical Pathology Reviewed date:06/08/2025 04:48:33 PM Interpretation: Performing Lab: Notes/Report: Surgical Pathology View Report Patient Name: ZUHAIR STOVER Age-Sex-: 70y M 1955 Procedure Date: 06/05/2025 Accession Date: 06/06/2025 Pt Acct#: Report Date: 06/08/2025 Location: OFFICE Physician(s): Star Tijerina MD P A T H O L O G Y R E P O R T DIAGNOSIS: 1. Skin, left upper arm, biopsy: Invasive squamous cell carcinoma, well differentiated. 2. Skin, right upper chest, biopsy: Basal cell carcinoma, nodular and superficial. Taty Garcia MD electronically signed 06/08/2025 11:51 AM Gross Description: 1. Received in formalin labeled Zuhair Stover and upper arm is a sánchez shaved portion of skin measuring 1.0 x 0.8 x less than 0.1 cm. On the surface of the skin eccentrically located is a brown ill-defined lesion measuring 0.6 x 0.5 cm. The lesion extends to the peripheral margin of the skin. The resection margin is inked blue. The specimen is sectioned and submitted entirely in cassette 1A, 12/26. 2. Received in formalin labeled [place], Zuhair and Rt upper chest is a sánchez shaved portion of skin measuring 0.9 x 0.6 x less than 0.1 cm. On the surface of the skin eccentrically located is a red-brown lesion measuring 0.6 x 0.3 cm and rises above the surface of the skin 0.1 cm. The lesion extends to the peripheral margin of the skin. The resection margin is inked blue. The specimen is trisected and submitted entirely in cassette 2A, 11/25. (HMR,RR13,mlm) Grossing services provided by [facility], [facility], d/b/a [address] [place], [address] Vinay Woodson MD, Outsewer. Microscopic Description: 1. There are nests of mildly atypical squamous epithelium which arise from the epidermis and extend into the underlying dermis. There is surrounding inflammation and fibrosis present. 2. In addition to a nodular basal cell carcinoma, there are nests of basal cell carcinoma also present as multifocal nests along the dermal-epidermal junction. Clinical History: Neoplasm of uncertain behavior of skin (D48.5) ; Neoplasm of uncertain behavior Specimen List: 1. Left upper arm 2. Right upper chest Unless specified otherwise above, the quality of the H and E and any other stains performed is satisfactory, and any internal or external positive and negative controls react appropriately. End of Report Technical services provided by [facility], [facility], d/b/a [address] , [place] [address] Vinay Woodson MD, Outsewer. Case reviewed and diagnosis rendered at [facility], [facility], d/b/a [address] , [place] [address] Vinay Woodson MD, Outsewer. CONFIDENTIAL REASON FOR VISIT 2 weeks Medications Medication SIG (Take, Route, Frequency, Duration) Notes Start Date End Date Status Celecoxib 200 MG Take 1 capsule by mouth once daily; Duration: 90 days Active Sildenafil Citrate 100 MG TAKE 1 TABLET BY MOUTH ONCE DAILY NEEDED; Duration: 50 Active Pantoprazole Sodium 40 MG 1 tablet Orall y Once a day; Duration: 90 days Active hydroCHLOROthiazide 12.5 MG 1 cap(s) ora lly once a day; Duration: 90 days Active Metoprolol Succinate ER 25 MG 1 tab(s) o rally twice a day; Duration: 90 days Active CoQ10 30 MG 1 cap(s) orally once a day Active Losartan Potassium 100 MG 1 tab(s) orall y once a day Active Aspirin Adult Low Dose 81 MG 1 tab(s) or ally once a day Active Atorvastatin Calcium 80 MG 1 tab(s) oral ly once a day; Duration: 90 days Active Clopidogrel Bisulfate 75 MG 1 tab(s) ora lly once a day Active Nitroglycerin 0.4 MG 1 tablet under the tongue and allow to dissolve as needed. Take every 5 minutes up to 3 times if chest pain persists Sublingual Three times a day Active Problems Problem Type SNOMED Code ICD Code Onset Dates Problem Status W/U Status Risk Notes Problem Squamous cell carcinoma of skin (184121711) SCC (squamous cell carcinoma) (C44.92) Active confirmed Problem Basal cell carcinoma of skin (053836506) Basal cell carcinoma (BCC), unspecified site (C44.91) Active confirmed Vital Signs Blood pressure systolic 130 mm Hg 06/05/20 25 Blood pressure diastolic 68 mm Hg 025 Heart Rate 56 /min 06/05/2025 Height 68 in 06/05/2025 Weight 228.6 lbs 06/05/2025 BMI 34.75 kg/m2 06/05/2025 Encounters Encounter Location Date Provider Diagnosis [facility] [address] [phone] 06/05/2025 Star [place] Neoplasm of uncertai n behavior of skin of chest D48.5 ; Neoplasm of uncertain behavior of skin of upper arm D48.5 ; SCC (squamous cell carcinoma) C44.92 and Basal cell carcinoma (BCC), unspecified site C44.91 Assessments Encounter Date Diagnosis (ICD Code) Assessment Notes Treatment Notes Treatment Clinical Notes Section Notes 06/05/2025 Neoplasm of uncertain behavior of skin of chest (ICD-10 - D48.5) 06/05/2025 Neoplasm of uncertain behavior of skin of upper arm (ICD-10 - D48.5) 06/05/2025 SCC (squamous cell carcinoma) (ICD-10 - C44.92) 06/05/2025 Basal cell carcinoma (BCC), unspecified site (ICD-10 - C44.91) Plan Of Treatment Next Appt Details Follow Up: via phone to repo rt test results, Reason: Provider Name:Star padilla, 09/17/2025 09:45:00 AM, [address], [place], [phone], Procedure Notes * Category Sub-Category Detail Notes Shave Biopsy Indication: Uncertain nature of the lesion Consent: All risks, benefits, and potential complications were discussed including bleeding, infection, scarring, and the need for further surgery to improve the resultant scar or to remove a cancerous process. It was explained that this procedure was for diagnostic purposes and was not being performed with the intention of curing the condition Location 1, R/O: Malignancy (SCC) on left forearm Location 2, R/O: Malignancy (BCC) rig ht upper chest Method: The biopsy was taken using the tangential shave technique. The area was first prepped with Betadine and anesthetized with 1% Lidocaine with epi. A flexible blade was used to harvest a territory sales representative specimen, light electrocautery of excision site for hemostasis Post-op: The likelihood of sc arring and the possibility of recurrence was reiterated to the patient. The patient is instructed to cleanse the wound twice daily with soap and water or hydrogen peroxide, and then apply a bandage for one week's time. The patient is instructed to notify the office if the wound site(s) ooze, become painful or red. The biopsy specimen was sent to the laboratory for pathological evaluation Progress Notes * Chad STOVEReDOB:1955 (70 yo M)Acc No.[id number]:06/05/2025 Progress Notes Patient: Zuhair LAMB Provider: Chepe Tijerina M.D. :1955 A ge:70 Y S ex:Male Date:06/05/2025 Address:[address], [place] Subjective: * Chief Complaints: * 1 . 2 weeks. * HPI: D ermatology: 70 year old male presents with c/o skin lesion P t is here to have lession removed from forearm and under collar bone. * ROS: D ERMATOLOGY: no R jose [...] affeine: yes, frequency:. Marital Status: . Occupation: [employer] Past smoking status: no, quit smoking 1982 after smoking 22 yrs. Alcohol: no. * Medications: T aking Nitroglycerin 0.4 MG Tablet Sublingual 1 tablet under the tongue and allow to dissolve as needed. Take every 5 minutes up to 3 times if chest pain persists Sublingual Three times a day , Taking CoQ10 30 MG Capsule 1 cap(s) orally [...] and reconciled with the patient * Allergies: Luis Eduardo .Uli Objective: * Vitals: W t: 228.6, Temp: 98.4, BP: 130/68, HR: 56, Nurse: DARIUS, Ht: 68, BMI:34.75. * Examination: G eneral Examination: General Appearance: N AD. S kin: l eft mid forearm with a 1 cm wide white papule with a central ulceration, right upper chest with a 6 mm wide pink pearly papule. Assessment: * Assessment: 1. N eoplasm of uncertain behavior of skin of chest - D48.5 (Primary) 2 . N eoplasm of uncertain behavior of skin of upper arm - D48.5 3 . S CC (squamous cell carcinoma) - C44.92 4 . B cara cell carcinoma (BCC), unspecified site - C44.91 Plan: * Treatment: Value Reference Range S urgical Pathology View Report - * Suni Schaefer 06/08/2025 04:4 8:24 PM EDT > See phone encounter 2.?Neoplasm of uncertain behavior of skin of upper arm?LAB: P-Surgical Pathology (Collection Date & Time - 06/05/2025 09:10 AM)* Value Reference Range S urgical Pathology View Report - * Suni Schaefer 06/08/2025 04:4 8:24 PM EDT > See phone encounter * Procedures: S have Biopsy: Indication: U ncertain nature of the lesion. C onsent:?All risks, benefits,and potential complications were discussed including bleeding, infection, scarring, and the need for further surgery to improve the resultant scar or to remove a cancerous process. It was explained that this procedure was for diagnostic purposes and was not being performed with the intention of curing the condition. L ocation 1, R/O: M alignancy (SCC) on left forearm. L ocation 2, R/O: M alignancy (BCC) right upper chest. M ethod: T he biopsy was taken using the tangential shave technique. The area was first prepped with Betadine and anesthetized with 1% Lidocaine with epi. A flexible blade was used to harvest a territory sales representative specimen, light electrocautery of excision site for hemostasis. P ost-op: T he likelihood of scarring and the possibility of recurrence was reiterated to the patient. The patient is instructed to cleanse the wound twice daily with soap and water or hydrogen peroxide, and then apply a bandage for one week's time. The patient is instructed to notify the office if the wound site(s) ooze, become painful or red. The biopsy specimen was sent to the laboratory for pathological evaluation. * Procedure Codes: 1 1301 SHAVE LESION,TRUNK,ARMS,LEGS 0.6 TO 1.0 CM, Units: 2.00 , G2211 Complex e/m visit add on * Follow Up: v ia phone to report test results * Images: Billing Information: * Visit Code: 69745 Office Visit, Est Pt., Level 2. Modifiers: 25 * Procedure Codes: 22653 SHAVE LESION,TRUNK,ARMS,LEGS 0.6 TO 1.0 CM. Units: 2.00. G2211 Complex e/m visit add on. * Electronic signature of Shelby Tijerina MD on 08/17/2025 at 07:26 AM EST Sign off status: Pending * Provider: Chepe Tijerina M.D. Date: 0 06/05/2025 Generated for Kristine farias/Charmaine/Fabbyitting on: 10/17/2024 07:26 AM EST History and Physical Notes * HPI (History of Present Illness) Category Sub-Category Detail Notes Category Not es Dermatology skin lesion Pt is here to gomes ve lession removed from forearm and under collar bone Examination Category Sub-Category Detail Notes Category Not es General Examination General Appearance: NAD Skin: left mid forearm wit h a 1 cm wide white papule with a central ulceration, right upper chest with a 6 mm wide pink pearly papule
--- OUTSIDE RECORDS SUMMARY | 2025-07-31 06:15 | XMS_ITS ---
Author Organization [facility] Address [address] [place] [phone] Care Team Providers Care Spring Internship Name Role Phone Star Tijerina Primary Care Provider [phone] Allergies No Known Allergies Reason For Referral Reason Try [facility] or [facility] in [place] Diagnosis 1 Plaque psoriasis (L4 0.0) Referral Organization [facility] Referring Provider First Name Star Referring Provider Last Name Lilliana Referring Provider Speciality Family Pra ctice Referred Provider Dermatology, . Referred Provider Specialty Dermatology General Notes Gay Paez 2024 12:06:04 PM > faxed referral to RICH at [facility] Referral Priority Routine REASON FOR VISIT [...] Orally Once a day Active Vital Signs Blood pressure systolic 128 mm Hg 07/31/20 25 Blood pressure diastolic 76 mm Hg 025 Heart Rate 47 /min 07/31/2025 Height 68 in 07/31/2025 Weight 231.2 lbs 07/31/2025 BMI 35.15 kg/m2 07/31/2025 Encounters Encounter Location Date Provider Diagnosis [facility] [address] [place] [address] 36 [facility] [address] [place] [id number] 07/31/2025 Star Tijerina Plaque psoriasis L40 .0 Assessments Encounter Date Diagnosis (ICD Code) Assessment Notes Treatment Notes Treatment Clinical Notes Section Notes 07/31/2025 Plaque psoriasis (ICD-10 - L40.0) Plan Of Treatment Referrals Referral Date Details 07/31/2025 07/31/2025, Try [facility] or [facility] in [facility] Dermatology Next Appt Details Follow Up: prn, Reason: Provider Name:Star Lemon ry, 09/17/2025 09:45:00 AM, [facility] [address] [facility], [address], [place], [id number], Progress Notes * Chad STOVEReDOB:1955 (70 yo M)Acc No.[id number]:07/31/2025 Progress Notes Patient: Zuhair LAMB Provider: Chepe Tijerina M.D. :1955 A ge:70 Y S ex:Male Date:07/31/2025 Address:[address], [place] Subjective: * Chief Complaints: * 1 . Referral for hands. * HPI: D ermatology: 70 year old male presents with c/o Dry Skin P t presents today to discuss getting a referral to dermatology for his hands. Pt has really dry and cracked skin on the palms of his hands. Pt sts that he was seeing a supervisor correspondence section in [place], and they were giving him injections that [...] affeine: yes, frequency:. Marital Status: . Occupation: [employer]. Past smoking status: no, quit smoking 1983 [...] * Images: Billing Information: * Visit Code: 12415 Office Visit, Est Pt., Level 3. * Procedure Codes: G2211 Complex e/m visit add on. * Electronic signature of Shelby Tijerina MD on 08/17/2025 at 07:26 AM EST Sign off status: Pending * Provider: Chepe Tijerina M.D. Date: 09/30/2024 Generated for Kristine farias/Charmaine/Breannasmitting on: 10/17/2024 07:26 AM EST History and Physical Notes * HPI (History of Present Illness) Category Sub-Category Detail Notes Category Not es Dermatology Dry Skin Pt presents toda to discuss getting a referral to dermatology for his hands. Pt has really dry and cracked skin on the palms of his hands. Pt sts that he was seeing a supervisor correspondence section in [place], and they were giving him injections that [...] . Try [facility] or [facility] in [place]
--- OUTSIDE RECORDS SUMMARY | 2025-08-17 07:26 | XMS_ITS | Clinical Summary ---
Author Organization [facility] Address [address] [place] [address] Phone [email or web address] Care Team Providers Care Civilian Technician Name Role Phone Reymundo Morgan Primary [...] Insurance [place] [address] [facility] [id number] [place] [address] Care Teams Civilian Technician Relationship Specialty Start Date End Date Reymundo Morgan PCP - General 06/20/19
--- OUTSIDE RECORDS SUMMARY | 2025-08-17 07:26 | XMS_ITS | Clinical Summary ---
Author Organization [facility] Address [address] [place] [address] Care Team Providers Care Bullard Operator Name Role Phone Star Tijerina MD Primary Care Provider [phone] Social History Tobacco Use Types Packs/Day Years [...] 2005 UKY-Zoster Vaccines (1 of 2) 2005 [id number] Vaccine (1 - 20 25-26 season) 2025 [...] age to complete this topic Care Teams Bullard Operator Relationship Specialty Start Date End Date Star Tijerina MD [address] [place] [address] [address] PCP - General 02/07/21
--- OUTSIDE RECORDS SUMMARY | 2025-08-17 07:26 | XMS_ITS | Clinical Summary ---
Author Organization [facility] Address [address] [place] [address] Care Team Providers Care Holder Pile Driving Name Role Phone None, Physician Primary Care [...] WORK COMP RISK MANAGEMENT SERVICES Care Teams Holder Pile Driving Relationship Specialty Start Date End Date None, Physician PCP - General 01/05/17
--- OUTSIDE RECORDS SUMMARY | 2025-08-17 07:27 | XMS_ITS | Patient Health Record ---
Author Organization [facility] Address [address] [facility] [address] [place] [id number] Care Team Providers Care Shell Sorter Name Role Phone Star Tijerina Primary Care [...] Gross Description: 1. Received in formalin labeled JolantaHelga and Lt upper arm is a sánchez [...] 2A, 11/25. (HMR,RR13,mlm) Grossing services provided by [facility], [facility], d/b/a [address] [place], [address] Vinay Woodson MD, Tester Printed Circuit Boards. Microscopic Description: 1. There are nests of [...] End of Report Technical services provided by [facility], [facility], d/b/a [address] , [place] [address] Vinay Woodson MD, Tester Printed Circuit Boards. Case reviewed and diagnosis rendered at [facility], [facility], d/b/a [address] , [place] [address] Vinay Woodson MD, Tester [employer]ed [employer] Boards. CONFIDENTIAL Medications Medication SIG (Take, Route, Frequency, Duration) Notes Start Date End Date Status Losartan Potassium 100 MG 1 tab(s) orall y once a day Active hydroCHLOROthiazide 50 MG 1 tablet in th e morning Orally Once a day Active Pantoprazole [...] W/U Status Risk Notes Problem Essential hypertension (86790966) Essential hypertension (I10) Active confirmed Problem Hypertriglyceridemia (234779553) Hypertriglyceridemia (E78.1) Active confirmed Problem Mixed hyperlipidemia (484659760) Mixed hyperlipidemia (E78.2) Active confirmed Problem Atherosclerotic hear t disease of rampart coronary artery without angina pectoris (224059993473463) Coronary artery disease involving rampart coronary artery of rampart heart without angina pectoris (I25.10) Active confirmed Problem Gastroesophageal reflux disease (317574629) Gastroesophageal reflux disease, esophagitis presence not specified (K21.9) Active confirmed Problem Stented coronary artery (831978268) Stented coronary artery (Z95.5) Active confirmed Problem Acute non-ST segment elevation myocardial infarction (099952945) Non-STEMI (non-ST elevated myocardial infarction) (I21.4) Active confirmed Problem Stricture of esophagus (87373215) Schatzki's ring of distal esophagus (K22.2) Active confirmed Problem Basal cell carcinoma of skin (986255064) Basal cell carcinoma (BCC), unspecified site (C44.91) Active confirmed Problem Squamous cell carcinoma of skin (007246268) SCC (squamous cell carcinoma) (C44.92) Active confirmed Vital Signs Heart Rate 47 /min 07/31/2025 Blood pressure diastolic 76 mm Hg 07/31/2025 Height 68 in 07/31/2025 Blood pressure systolic 128 mm Hg 07/31/2025 Weight 231.2 lbs 07/31/2025 BMI 35.15 kg/m2 07/31/2025 Encounters Encounter Location Date Provider Diagnosis [facility] [address] [place], [place] [id number] 02/02/2025 Star Tijerina 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 Z02.4 [facility] [address] [facility] [address] [place], [place] [id number] 03/19/2025 Star Creswell Essential hypertensi on I10 ; Mixed hyperlipidemia E78.2 ; Hypertriglyceridemia E78.1 ; Gastroesophageal reflux disease, esophagitis presence not specified K21.9 ; Acute pain of left knee M25.562 and Prostate cancer screening Z12.5 [facility] [address] [facility] [address] [place], [place] [id number] 05/22/2025 Star Creswell Neoplasm of uncertai n behavior of skin of upper extremity D48.5 and Neoplasm of uncertain behavior of skin of chest D48.5 [facility] [address] [facility] [address] [place], [place] [id number] 06/05/2025 Star Creswell Neoplasm of uncertai n behavior of skin of chest D48.5 ; Neoplasm of uncertain behavior of skin of upper arm D48.5 ; SCC (squamous cell carcinoma) C44.92 and Basal cell carcinoma (BCC), unspecified site C44.91 [facility] [address] [facility] [address] [place], [place] [id number] 07/31/2025 Star Creswell Plaque psoriasis L40 .0 [facility] [facility] [facility] [address] [place], [place] [id number] 03/22/2025 Star Creswell [facility] [address] [facility] [address] [facility] [address] [place], [place] [id number] 04/09/2025 Star Creswell Screening for colon cancer Z12.11 [facility] [address] [facility] [address] [place], [place] [id number] 06/08/2025 Star Creswell Assessments Encounter Date Diagnosis (ICD Code) Assessment Notes Treatment Notes Treatment Clinical Notes Section Notes 02/02/2025 Encounter for Department of Transportation (DOT) examination for deny license (ICD-10 - Z02.4) 03/19/2025 Essential hypertensi on (ICD-10 - I10) 04/09/2025 Screening for colon cancer (ICD-10 - Z12.11) 07/31/2025 Plaque psoriasis (ICD-10 - L40.0) 06/05/2025 Neoplasm of uncertai n behavior of skin of chest (ICD-10 - D48.5) 06/05/2025 Neoplasm of uncertai n behavior of skin of upper arm (ICD-10 - D48.5) 05/22/2025 Neoplasm of uncertai n behavior of skin of chest (ICD-10 - D48.5) 05/22/2025 Neoplasm of uncertai n behavior of skin of upper extremity (ICD-10 - D48.5) 03/19/2025 Mixed hyperlipidemia (ICD-10 - E78.2) 06/05/2025 SCC (squamous cell carcinoma) (ICD-10 - C44.92) 03/19/2025 Hypertriglyceridemia (ICD-10 - E78.1) 06/05/2025 Basal cell carcinoma (BCC), unspecified site (ICD-10 - C44.91) 03/19/2025 Gastroesophageal ref lux disease, esophagitis presence [...] [address], [address], [place], [place], [id number], Insurance Providers Payer Name Payer Address Payer Phone Subscriber Number Group Number Insured Name Patient Relationship to Insured Coverage Start Date Coverage End Date [employer] (MEDICARE) [address] [address] [place] [address] [id number] Jolanta Helga Self - patient is the insured MEDICARE PART B [address] [address] [facility] [place] [id number] [phone] [id number] JolantaChade Self - patient is the insured Medical (General) History Medical History History ICD Code Psoriasis Hiatal Hernia Esophageal Reflux RT Hip Fracture, s/p Fall at work 7 NSTEMI, 04/2019 CAD, 04/2019 Surgical History Surgery Date(Month/Year) LT Foot- Dr. Dwaine Granado 7 RT Hip Replacement 07/2017 Cardiac Stent x5 05/16/2019 Hospitalization History Reason Date(Month/Year) [facility] - NSTEMI, Stent Placement 05/16-17/11 019
--- NOTE | 2025-08-17 08:00 | CA_ITS ---
APPROVED REPORT EXAM: Comprehensive 2D, Doppler, and color-flow Echocardiogram Wet Cotton Feeder: Diana Braun RT(R) Ht: 5 ft 8 in Wt: 228lbs BSA: 2.16 BP: 152/74 mmHg Indications: CAD, HTN, SOB, ex smoker 2D Dimensions Left Atrium 4.05 cm M: 3.0 - 4.0 LA Volume 33.70 mL LVOT 2.18 cm (M/F) 1.5-2.5 LA Volume Index 15.60 mL/m2 (M/F) 16-34 EF AP4 60.10 % GL Strain -17.8 % M-Mode Dimensions RVDd 3.88 cm (0.9-2.6) LVDd 4.12 cm (3.5-5.7) Ao Diam 3.01 cm (2.0-3.7) LVDs 3.04 cm (3.5-5.7) IVSd 1.12 cm (0.6-1.1) PWd 0.98 cm (0.6-1.1) EF (Teich) 51.80% FS 26.20% EDV (Teich) 75.10 mL ESV (Teich) 36.20 mL LV Diastology E Decel Time 178 (160-240 msec) E/A Ratio 0.8 MED E' 9.2 (>= 7 cm/sec) E'/MED E' Ratio 7.70 (<= 14) LAT E' 12.8 (>= 10 cm/sec) E/LAT E' Ratio 5.53 (<= 14) Mitral Valve MV E Max Inocente. 71.0 (40-130 cm/s) MV A Velocity 85.0 (40-130 cm/s) E/A Ratio 0.83 MV Decel. Time 178 (160-240 ms) Left Ventricle The left ventricle is normal size. Left ventricular systolic function is normal. The left ventricular ejection fraction is within the normal range. There is inreased cleft ventricular wall thickness. Regional wall motion is difficult to evaluate due to technically difficult study. The left ventricular diastolic function is indeterminate. LVEF is 55% Right Ventricle The right ventricle is mildly dilated. The right ventricular systolic function is mildly reduced. Atria Left atrium is mildly dilated. Right atrium is mildly dilated. There is no color Doppler evidence of interatrial shunt. Aortic Valve The aortic valve is mildly thickened. There is no hemodynamically significant aortic valvular stenosis. Trace aortic regurgitation is present. Mitral Valve The mitral valve is normal in structure. No evidence of mitral valve stenosis. Mild mitral regurgitation is present. Tricuspid Valve The tricuspid valve leaflets are thin and pliable. Trace tricuspid regurgitation. There is insufficient TR jet to estimate RVSP. Pulmonic Valve The pulmonary valve is grossly normal in structure. Trace pulmonic valve regurgitation is present. Great Vessels The aortic root is normal in size. IVC is normal in size and collapses >50% with inspiration. Pericardium There is no pericardial effusion. Other Information Study Quality: Technically Difficult Conclusion Normal LV systolic function. Regional wall motion is difficult to evaluate due to technically difficult study. Mild RV dilation with mild reduction in RV function. Biatrial dilation. Mild MR. Electronically signed by : Emily Beltran MD 08/26/2025 13:59:35
== END 2025-08-17 23:59 | disposition home or self-care (01) ==
LOC: RT 07:25
PROVIDERS: PCP Family Medicine; Visit Provider Physician Assistant
DX: I34.0 Nonrheumatic mitral (valve) insufficiency (principal); I11.9 Hypertensive heart disease without heart failure
CPT/HCPCS: 93306

== ENCOUNTER 2025-09-06 06:07 | Outpatient (CLI) | payer MEDICARE, SELFPAY ==
--- OUTSIDE RECORDS SUMMARY | 2024-03-21 05:00 | XMS_ITS ---
Author Organization [facility] Address [address] [facility] [address] [place] [phone] Care Team Providers Care Rack Pusher Name Role Phone Star Tijerina Primary Care [...] [address] [place] [id number] 03/21/2024 Star Tijerina Encounter for Depart ment [...] [address], [place], [id number], Progress Notes * Chad STOVEReDOB:1955 (70 yo M)Acc No.[id number]:03/21/2024 Physical Patient: Zuhair LAMB Provider: Chepe Tijerina M.D. 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 Patient saw cardiology at [facility] yesterday for his 6 months follow up [...] affeine: yes, frequency:. Marital Status: . Occupation: [employer], [employer]. Past smoking status: no, quit smoking 1983 [...] Procedure Codes: 8 1002 Urinalysis, no micro, 42800 VISUAL ACUITY SCREEN * Follow Up: p rn * Images: Billing Information: * Visit Code: 42803 Preventive Care Est Pt. Age 65 and over. * Procedure Codes: 84613 Urinalysis, no micro. 64234 VISUAL ACUITY SCREEN. * Electronic signature of Shelby Tijerina MD on 09/06/2025 at 06:12 AM EST Sign off status: Pending * Provider: Chepe Tijerina M.D. 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 Patient saw cardiology at [facility] yesterday for his 6 months follow up [...]
--- OUTSIDE RECORDS SUMMARY | 2025-02-02 06:15 | XMS_ITS ---
Author Organization [facility] Address [address] [facility] [address] [place] [id number] Care Team Providers Care Tower Director Name Role Phone Star Tijerina Primary Care Provider [phone] Allergies No Known Allergies Results Component Value [...] [address] [place] [id number] 02/02/2025 Star Tijerina Encounter for Depart ment [...] [address], [address], [place], [id number], Progress Notes * Chad STOVEReDOB:1955 (70 yo M)Acc No.[id number]:02/02/2025 Physical Patient: Zuhair LAMB Provider: Chepe Tijerina M.D. :1955 A ge:69 Y S ex:Male Date:02/02/2025 Address:[address] [place] [address], [id number] Subjective: * Chief Complaints: * 1 . [...] affeine: yes, frequency:. Marital Status: . Occupation: [employer], [employer]. Past smoking status: no, quit smoking 1982 [...] Procedure Codes: 8 1002 Urinalysis, no micro, 56376 VISUAL ACUITY SCREEN * Follow Up: p rn * Images: Billing Information: * Visit Code: 26046 Preventive Care Est Pt. Age 65 and over. * Procedure Codes: 59012 Urinalysis, no micro. 45594 VISUAL ACUITY SCREEN. * Electronic signature of Shelby Tijerina MD on 09/06/2025 at 06:12 AM EST Sign off status: Pending * Provider: Chepe Tijerina M.D. Date: 0 02/02/2025 Generated for Kristine farias/Charmaine/Breannasmitting on: 1 11/07/2024 06:12 AM EST History [...]
--- OUTSIDE RECORDS SUMMARY | 2025-03-19 05:15 | XMS_ITS ---
Author Organization [facility] Address [address] [place] [phone] Care Team Providers Care Scientist Immunology Name Role Phone Star Tijerina Primary Care Provider [phone] Allergies No Known Allergies Results Component Value [...] 03/19/2025 Encounters Encounter Location Date [facility] [address] [phone] 03/19/2025 Star Tijerina Essential hypertensi on I10 [...] [address], [place], [place], [phone], Progress Notes * Chad STOVEReDOB:1955 (70 yo M)Acc No.[id number]:03/19/2025 Progress Notes Patient: Zuhair LAMB Provider: Chepe Tijerina M.D. :1955 A ge:69 Y S ex:Male Date:03/19/2025 Address:[address] [place] [address], [facility] Subjective: * Chief Complaints: * 1 . [...] affeine: yes, frequency:. Marital Status: . Occupation: [employer], [employer]. Past smoking status: no, quit smoking 1983 [...] * Images: Billing Information: * Visit Code: 81848 Office Visit, Est Pt., Level 4. * [...] M.D. Date: 0 03/19/2025 Generated for Shaynei ng/Zacg/eTransmitting on: 1 11/07/2024 06:12 AM EST History [...]
--- OUTSIDE RECORDS SUMMARY | 2025-05-22 06:00 | XMS_ITS ---
[facility] Organization [facility] Address [address] [facility] [address] [place] [id number] Care Team Providers Care Carport Erector Name Role Phone Star Tijerina Primary Care Provider Allergies No Known Allergies REASON FOR VISIT 2 spots Medications Medication SIG (Take, Route, Frequency, Duration) Notes Start Date End Date Status Metoprolol Succinate ER 25 MG 1 tab(s) o rally twice a day; Duration: 90 days Active hydroCHLOROthiazide 12.5 MG 1 cap(s) ora lly once a day; Duration: 90 days Active Sildenafil Citrate 100 MG TAKE 1 TABLET BY MOUTH ONCE DAILY NEEDED; Duration: 50 Active Celecoxib 200 MG Take 1 capsule by mouth once daily; Duration: 90 days Active Pantoprazole Sodium 40 MG 1 tablet Orall y Once a day; Duration: 90 days Active CoQ10 30 MG 1 cap(s) orally once a day Active Aspirin Adult Low Dose 81 MG 1 tab(s) or ally once a day Active Losartan Potassium 100 MG 1 tab(s) orall y once a day Active Clopidogrel Bisulfate 75 MG 1 tab(s) ora lly once a day Active Atorvastatin Calcium 80 MG 1 tab(s) oral ly once a day; Duration: 90 days Active Vital Signs Blood pressure systolic 130 mm Hg 05/22/20 25 Blood pressure diastolic 82 mm Hg 025 Heart Rate 67 /min 05/22/2025 Height 68 in 05/22/2025 Weight 227 lbs 05/22/2025 BMI 34.51 kg/m2 05/22/2025 Encounters Encounter Location Date Provider Diagnosis Les[place] [address] [facility] [address] [place] [id number] 05/22/2025 Star Tijerina Neoplasm of uncertai n behavior of skin of upper extremity D48.5 and Neoplasm of uncertain behavior of skin of chest D48.5 Assessments Encounter Date Diagnosis (ICD Code) Assessment Notes Treatment Notes Treatment Clinical Notes Section Notes 05/22/2025 Neoplasm of uncertain behavior of skin of upper extremity (ICD-10 - D48.5) 05/22/2025 Neoplasm of uncertain behavior of skin of chest (ICD-10 - D48.5) 05/22/2025 Other Plan biopsy of both lesions ANTONIO Plan Of Treatment Treatment Notes Assessment Notes Other Plan biopsy of both lesions ANTONIO Next Appt Details Follow Up: 2 Weeks for a 30 min appt., Reason: Provider Name:Star Lemon ry, 09/17/2025 09:45:00 AM, [address], [address], [place], [phone], Progress Notes * Chad STOVEReDOB:1955 (70 yo M)Acc No.[id number]:05/22/2025 Progress Notes Patient: Zuhair LAMB Provider: Chepe Tijerina M.D. :1955 A ge:70 Y S ex:Male Date:05/22/2025 Address:[address] [place] [address], [place] Subjective: * Chief Complaints: * 1 . 2 spots. * HPI: D ermatology: 70 year old male presents with c/o skin lesion P t complains of lesions on lt forearm and under rt collarbone. Pt states they have been there for a while and they do not hurt or bother him. Pt just wants to have them looked at today. * ROS: C ARDIOLOGY: no D izziness. n o C hest pain. G ASTROENTEROLOGY: no N ausea. n o [...] . * Social History: C URRENT TOBACCO USE: No S moking Status: Patient does NOT smoke. C affeine: yes, frequency:. Marital Status: . Occupation: [employer]. Past smoking status: no, quit smoking 1983 [...] N .K.D.A. Objective: * Vitals: W t: 227, Temp: 97.8, BP: 130/82, HR: 67, Nurse: ernesto, Ht: 68, BMI:34.51. * Examination: G eneral Examination: General Appearance: N AD. S kin: 1 cm wide white papule with a central ulceration, right upper chest with a 6 mm wide pink pearly papule. ? Assessment: * Assessment: 1. N eoplasm of uncertain behavior of skin of upper extremity - D48.5 (Primary) ?2. N eoplasm of uncertain behavior of skin of chest - D48.5 Plan: * Treatment: * Procedure Codes: G 2211 Complex e/m visit [place] on, 1036F TOBACCO NON-USER, G8783 BP SCR PRFRM RCMDD DEFIND SCR INTVL, G8752 MOST RECENT SYSTOLIC BP < 140MM HG, G8754 MOST RECENT DIASTOLIC BP < 90MM HG * Follow Up: 2 Weeks for a 30 min appt. * Images: Billing Information: * Visit Code: 39775 Office Visit, Est Pt., Level 3. * Procedure Codes: G2211 Complex e/[place] on. 1036F TOBACCO NON-USER. G8783 BP SCR PRFRM RCMDD DEFIND SCR INTVL. G8752 MOST RECENT SYSTOLIC BP < 140MM HG. G8754 MOST RECENT DIASTOLIC BP < 90MM HG. * Electronic signature of Shelby Tijerina MD on 09/06/2025 at 06:12 AM EST Sign off status: Pending * Provider: Chepe Tijerina M.D. Date: 0 05/22/2025 Generated for Kristine farias/Charmaine/Breannasmitting on: 1 11/07/2024 06:12 AM EST History and Physical Notes * HPI (History of Present Illness) Category Sub-Category Detail Notes Category Not es Dermatology skin lesion Pt complains of lesions on lt forearm and under rt collarbone. Pt states they have been there for a while and they do not hurt or bother him. Pt just wants to have them looked at today Examination Category Sub-Category Detail Notes Category Not es General Examination General Appearance: NAD Skin: 1 cm wide white papu le with a central ulceration, right upper chest with a 6 mm wide pink pearly papule
--- OUTSIDE RECORDS SUMMARY | 2025-06-05 04:30 | XMS_ITS ---
Author Organization [facility] Address [address] [place] [phone] Care Team Providers Care Staff Interpreter Name Role Phone Star Tijerina Primary Care Provider [phone] Allergies No Known Allergies Results Component Value [...] 1A, 12/26. 2. Received in formalin labeled [place], Zuhair and Rt upper chest is a [...] 2A, 11/25. (HMR,RR13,mlm) Grossing services provided by [facility], [facility], d/b/a [address] [place], [address] Vinay Woodson MD, Manager Market Research. Microscopic Description: 1. There are nests of [...] End of Report Technical services provided by [facility], [facility], d/b/a [address] , [place] [address] Vinay Woodson MD, Manager Market Research. Case reviewed and diagnosis rendered at [facility], [facility], d/b/a [address] , [place] [address] Vinay Woodson MD, Manager Market Research. CONFIDENTIAL REASON FOR VISIT 2 weeks Medications [...] Notes Problem Squamous cell carcinoma of skin (754722216) SCC (squamous cell carcinoma) (C44.92) Active confirmed Problem Basal cell carcinoma of skin (639872422) Basal cell carcinoma (BCC), unspecified site (C44.91) Active confirmed Vital Signs Blood pressure systolic 130 mm Hg 06/05/20 25 Blood pressure diastolic 68 mm Hg 025 Heart Rate 56 /min 06/05/2025 Height 68 in 06/05/2025 Weight 228.6 lbs 06/05/2025 BMI 34.75 kg/m2 06/05/2025 Encounters Encounter Location Date Provider Diagnosis [facility] [address] [phone] 06/05/2025 Star [place] Neoplasm of uncertai n behavior of skin [...] [address], [place], [id number], Procedure Notes * Category Sub-Category Detail Notes [...] flexible blade was used to harvest a industrial relations representative specimen, light electrocautery of excision site [...] Notes * Chad STOVEReDOB:1955 (70 yo M)Acc No.[id number]:06/05/2025 Progress Notes Patient: Zuhair LAMB Provider: Chepe Tijerina M.D. :1955 A ge:70 Y S ex:Male Date:06/05/2025 Address:[address], [place] Subjective: * Chief Complaints: * 1 . [...] affeine: yes, frequency:. Marital Status: . Occupation: [employer]. Past smoking status: no, quit smoking 1982 [...] flexible blade was used to harvest a industrial relations representative specimen, light electrocautery of excision site [...] * Images: Billing Information: * Visit Code: 40269 Office Visit, Est Pt., Level 2. Modifiers: 25 * Procedure Codes: 77294 SHAVE LESION,TRUNK,ARMS,LEGS 0.6 TO 1.0 CM. Units: 2.00. G2211 Complex e/m visit add on. * Electronic signature of Shelby Tijerina MD on 09/06/2025 at 06:10 AM EST Sign off status: Pending * Provider: Chepe Tijerina M.D. Date: 0 06/05/2025 Generated for Kristine farias/Charmaine/Fabbyitting on: 11/07/2024 06:10 AM EST History and Physical Notes * [...]
--- OUTSIDE RECORDS SUMMARY | 2025-09-06 06:10 | XMS_ITS | Clinical Summary ---
Author Organization [facility] Address [address] [place] [address] Phone [email or web address] Care Team Providers Care Supervisor Dog License Officer Name Role Phone Reymundo Morgan Primary Care Provider Unavailabl e Allergies Active Allergy Reactions Criticality Noted Date Comments Bacitracin 12/30/2018 Hydrocortisone 12/30/2018 Medications celecoxib (CeleBREX) 200 MG capsule 10/19/2018 Active pantoprazole (PROTONIX) 40 MG EC tablet 10/17/2018 Active EQ ASPIRIN ADULT LOW DOSE 81 MG EC tablet Take 81 mg by mouth 1 (one) time each day. 06/11/2019 Active atorvastatin (LIPITOR) 80 MG tablet [...] Insurance [place] 5 [facility]R[address] HARRISON [facility] [id number] [place] [address] Care Teams Supervisor Dog License Officer Relationship Specialty Start Date End Date Reymundo Morgan PCP - General 06/20/19
--- OUTSIDE RECORDS SUMMARY | 2025-09-06 06:12 | XMS_ITS | Clinical Summary ---
Author Organization [facility] Address [address] [place] [address] Care Team Providers Care Dependency Case Manager Name Role Phone Star Tijerina MD Primary Care Provider + [phone] Social History Tobacco Use Types Packs/Day Years [...] 2005 UKY-Zoster Vaccines (1 of 2) 2005 [id number] Vaccine (1 - 20 25-26 season) 2025 [...] age to complete this topic Care Teams Dependency Case Manager Relationship Specialty Start Date End Date Star Tijerina MD [address] [place] [address], [place] [address] PCP - General 02/07/21
--- OUTSIDE RECORDS SUMMARY | 2025-09-06 06:12 | XMS_ITS | Clinical Summary ---
Author Organization [facility] Address [address] [place] [address] Care Team Providers Care Lock Corner Machine Operator Name Role Phone None, Physician Primary Care [...] WORK COMP RISK MANAGEMENT SERVICES Care Teams Lock Corner Machine Operator Relationship Specialty Start Date End Date None, Physician PCP - General 01/05/17
--- OUTSIDE RECORDS SUMMARY | 2025-09-06 06:12 | XMS_ITS | Patient Health Record ---
[facility] Address [address] [facility] [address] [place] [id number] Care Team Providers Care Human Resource Assistant Name Role Phone Star Tijerina Primary Care Provider [phone] Allergies No Known Allergies Results Component Value [...] 1A, 12/26. 2. Received in formalin labeled [place], Zuhair and Rt upper chest is a [...] 2A, 11/25. (HMR,RR13,mlm) Grossing services provided by [facility], [facility], d/b/a [address] [place], [address] Vinay Woodson MD, Foundry Equipment Mechanic. Microscopic Description: 1. There are nests of [...] End of Report Technical services provided by [facility], [facility], d/b/a [address] , [place] [address] Vinay Woodson MD, Foundry Equipment Mechanic. Case reviewed and diagnosis rendered at [facility], [facility], d/b/a [address] , [place] [address] Vinay Woodson MD, Foundry Equipment Mechanic. CONFIDENTIAL H-TSH Reviewed date:03/22/2025 05:42:24 PM Interpretation:Normal Performing [...] W/U Status Risk Notes Problem Essential hypertension (72632256) Essential hypertension (I10) Active confirmed Problem Hypertriglyceridemia (807537838) Hypertriglyceridemia (E78.1) Active confirmed Problem Mixed hyperlipidemia (890067997) Mixed hyperlipidemia (E78.2) Active confirmed Problem Atherosclerotic hear t disease of absentee-shawnee coronary artery without angina pectoris (695522891882575) Coronary artery disease involving absentee-shawnee coronary artery of absentee[place]nee heart without angina pectoris (I25.10) Active confirmed Problem Gastroesophageal reflux disease (070685322) Gastroesophageal reflux disease, esophagitis presence not specified (K21.9) Active confirmed Problem Stented coronary artery (165558710) Stented coronary artery (Z95.5) Active confirmed Problem Acute non-ST segment elevation myocardial infarction (953999872) Non-STEMI (non-ST elevated myocardial infarction) (I21.4) Active confirmed Problem Stricture of esophagus (72651501) Schatzki's ring of distal esophagus (K22.2) Active confirmed Problem Basal cell carcinoma of skin (177920422) Basal cell carcinoma (BCC), unspecified site (C44.91) Active confirmed Problem Squamous cell carcinoma of skin (262207924) SCC (squamous cell carcinoma) (C44.92) Active confirmed Vital Signs Heart Rate 47 /min 07/31/2025 Blood pressure diastolic 76 mm Hg 07/31/2025 Height 68 in 07/31/2025 Blood pressure systolic 128 mm Hg 07/31/2025 Weight 231.2 lbs 07/31/2025 BMI 35.15 kg/m2 07/31/2025 Encounters Encounter Location Date Provider Diagnosis [facility] [address] [place], [place] [id number] 02/02/2025 Star Tijerina 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 Z02.4 [facility] [address] [place], [place] [id number] 03/19/2025 Star Somerset Essential hypertensi on I10 ; Mixed hyperlipidemia E78.2 ; Hypertriglyceridemia E78.1 ; Gastroesophageal reflux disease, esophagitis presence not specified K21.9 ; Acute pain of left knee M25.562 and Prostate cancer screening Z12.5 [facility] [address] [facility] [address] [place], [place] [id number] 05/22/2025 Star [place] Neoplasm of uncertai n behavior of skin of upper extremity D48.5 and Neoplasm of uncertain behavior of skin of chest D48.5 [facility] [address] [facility] [address] [place], [place] [id number] 06/05/2025 Star [place] Neoplasm of uncertai n behavior of skin of chest D48.5 ; Neoplasm of uncertain behavior of skin of upper arm D48.5 ; SCC (squamous cell carcinoma) C44.92 and Basal cell carcinoma (BCC), unspecified site C44.91 [facility] [address] [place], [place] [id number] 07/31/2025 Star [place] Plaque psoriasis L40 .0 [facility] [address] [place], [place] [id number] 03/22/2025 Star [place] [facility] [address] [facility] [address] [place], [place] [id number] 04/09/2025 Star [place] Screening for colon cancer Z12.11 [facility] [address] [facility] [address] [place], [place] [id number] 06/08/2025 Star [place] Assessments Encounter Date Diagnosis (ICD Code) Assessment [...] skin of upper arm (ICD-10 - D48.5) 07/31/2025 Plaque psoriasis (ICD-10 - L40.0) 03/19/2025 [...] [address], [address], [place], [place], [id number], Insurance Providers Payer Name Payer Address Payer Phone Subscriber Number Group Number Insured Name Patient Relationship to Insured Coverage Start Date Coverage End Date [employer] (MEDICARE) [address] [address] [place] [address] [id number] Jolanta Zuhair Self - patient is the insured MEDICARE PART B [address] [address] [facility] [id number] JolantaChade Self - patient is the insured Medical (General) History Medical History History ICD Code Psoriasis Hiatal Hernia Esophageal Reflux RT Hip Fracture, s/p Fall at work 7 NSTEMI, 04/2019 CAD, 04/2019 Surgical History Surgery Date(Month/Year) LT Foot- Dr. Dwaine Granado 7 RT Hip Replacement 07/2017 Cardiac Stent x5 05/16/2019 Hospitalization History Reason Date(Month/Year) [facility] - NSTEMI, Stent Placement 05/16-17/11 019
--- OUTSIDE RECORDS SUMMARY | 2025-09-06 06:13 | XMS_ITS | Continuity of Care Document ---
Author Organization [facility] DERMATOLOGY [place] Address [address] [place] [phone] Assessment No assessment recorded. Plan of Treatment Reminders Order Date Submit Date Provider Last Modified By Organization Details Last Modified Time Details Appointments None recorded. Lab surgical pathology study 2024 025 [facility], [address] [place] [address], [phone], 09:47:17 Referral None recorded. Procedures None recorded. Surgeries None recorded. Imaging None recorded. Medication Orders hydroxyzine HCl 10 mg tablet 2024 025 [email or web address] 1 [facility], [address], [address], 10:45:35 Patient TargetsNo targets recorded. Patient Instructions Encounter Date Encounter Id Patient Instructions Last Modified By Organization Details Last Modified Time 08/21/2025 [id number] - Instructed to monitor for changes and to call us for appointment with any changing or worrisome lesions [email or web address] Not available 08/20/2025 12:59:53 Reason for Referral None Reported. Procedures Surgical History Date Name Laterality Status Provider Name and Address Organization Details Recorded Time Biopsy Skin Lesion; Tangential completed Betty Muniz [facility] 08/21/2025 10:28:09 Imaging Results None recorded. Procedure Notes None recorded. Medical Equipment None Reported. Allergies Allergen ID Allergen Name Allergen Category Reaction Reaction Severity Criticality Documentation Date Start Date Code Code System Note Provider Name and Address Organization Details Recorded Time 912708 bacitraci n medicatio n Not available Not available Not available 08/20/20252018 1291 RxNorm Not Available [facility] - External Data Service - prod 13:24:25 350561 hydrocort isone medicatio n Not available Not available Not available 08/20/20252018 5492 RxNorm Not Available [facility] External Data Service - [facility] 13:24:25 Medications Name Sig Start Date Stop Date Status Note LastModified by Organization Details LastModified Time celecoxib 200 mg capsule Take 1 capsule every day by oral route. active Not Available Not Available No t Available atorvastatin 80 mg tablet Take 1 tablet every day by oral route. active Not Available Not Available No t Available prednisone 20 mg tablet Take 3 tablets daily for three days, 2 tablets daily for three days, 1 tablet daily for three days, and 1/2 a tablet daily for three days 2024 active Not Available Not Available Not Avai lable clopidogrel 75 mg tablet Take 1 tablet every day by oral route. active Not Available Not Available No t Available pantoprazole 40 mg tablet,delayed release Take 1 tablet every day by oral route. active Not Available Not Available No t Available hydroxyzine HCl 10 mg tablet TAKE ONE TABLET ONCE DAILY AT NIGHT 2024 active Not Available Not Available Not Avai lable losartan 100 mg tablet Take 1 tablet every day by oral route. active Not Available Not Available No t Available Keyser 3 active Not Available Not Avail able Not Available metoprolol succinate ER 25 mg capsule sprinkle, ext. release 24 hr Take 1 capsule every day by oral route. active Not Available Not Available No t Available Dupixent 300 mg/2 mL subcutaneous pen injector active Not Available Not Available Not Available aspirin 81 mg capsule Take 1 capsule every day by oral route. active Not Available Not Available No t Available hydrochlorothia zide 10 mg/mL oral suspension Take 2.5 mL every day by oral route. active Not Available Not Available No t Available Vitals None Recorded Social History None recorded. Functional Status None recorded. Mental Status None recorded. Family History Nothing Reported. Medical History No medical history recorded. Past Encounters Encounter ID Performer Location Encounter Start Date Encounter Closed Date Diagnosis/Indication Diagnosis SNOMED-CT Code Diagnosis ICD10 Code Diagnosis IMO Codes Diagnosis Note [id number] RL RODRIGUEZ MD [facility] [address] [place] [address] 08/21/2025 09:57:11 08/21/2025 11:04:44 History of malignant neoplasm of skin 918078476 Z85.828 409862 not evaluated today Neoplasm o f uncertain behavior of skin 19778699 D48.5 48883 L palmr/o Eczema vs Psoriasis vs othershave biopsy performeds ent for pathsee procedure notewound care instructio simon providedpa tient consents for procedure and photo monitoring Wound care discussed with patient. Leave the bandage on for 24 hrs. Clean the area daily with warm soapy water, and apply polysporin ointment and a bandaid once daily until healed. Call the office if any increase in redness, drainage, or pain. He prefers not to treat topically at this time Health Concerns Section Related Observation LastModified by Organization Detai ls LastModified Time None Recorded Concern Status LastModified by Organization Details LastModified Time None Recorded Payers Encounter Date Sequence Insurance Name Policy Number Policy Mari Covered Member ID Mari Member ID Guarantor Name 08/21/2025 1 [employer] (MEDICARE REPLACEMENT/A DVANTAGE - PPO) Zuhair Stover [id number] Zuhair Stover Notes Date Note Type Note Provider Name and Address Organization Details Recorded Time 08/21/2025 text/html ROS as noted in the HPI New patient- Self referred 70yo M presents to clinic today for dry/cracking hands for many years (started when he worked for [employer]). He does not recall that it had been biopsied but was sent for patch testing (allergic to Neosporin) Prior treatments include shots (IM kenalog?) although he doesn't remember the name.Lotion makes worse. No rash elsewhere on his body. No known family history of psoriasisWould prefer no injections Personal h/o of skin cancer: Unknown Hx of skin cancerR chestL armDenies any other new or changing lesions. Feels well today. family history of malignant melanoma. RL RODRIGUEZ MD [address] [place] [address], [phone], [facility] 08/21/2025 15:47:12
--- OUTSIDE RECORDS SUMMARY | 2025-09-06 06:13 | XMS_ITS | Data Portability ---
Author Organization [facility]IVEL [facility] [facility] Address [address] [facility] [address] [place] [address] Assessment No assessment recorded. Plan of Treatment Reminders Order Date Submit Date Provider Last Modified By Organization Details Last Modified Time Details Appointments None recorded. Lab surgical pathology study 2024 025 [facility], [address] [place] [address], [phone], 09:47:17 Referral None recorded. Procedures None recorded. Surgeries None recorded. Imaging None recorded. Medication Orders hydroxyzine HCl 10 mg tablet 2024 025 1 [facility]91, [address], [address], 10:45:35 Patient TargetsNo targets recorded. Patient Instructions Encounter Date Encounter Id Patient Instructions Last Modified By Organization Details Last Modified Time 08/21/2025 [id number] - Instructed to monitor for changes and to call us for appointment with any changing or worrisome lesions [email or web address] Not available 08/20/2025 12:59:53 Reason for Referral None Reported. Procedures Surgical History Date Name Laterality Status Provider Name and Address Organization Details Recorded Time Biopsy Skin Lesion; Tangential completed Betty Muniz [facility] 08/21/2025 10:28:09 Imaging Results None recorded. Procedure Notes None recorded. Medical Equipment None Reported. Allergies Allergen ID Allergen Name Allergen Category Reaction Reaction Severity Criticality Documentation Date Start Date Code Code System Note Provider Name and Address Organization Details Recorded Time 359265 bacitraci n medicatio n Not available Not available Not available 08/20/20252018 1291 RxNorm Not Available brent - External Data Service - prod 13:24:25 239455 hydrocort isone medicatio n Not available Not available Not available 08/20/20252018 5492 RxNorm Not Available [facility] External Data Service - [facility] 13:24:25 Medications Name Sig Start [...] Not Available Not Available No t Available [place] 3 active Not Available Not Avail able [...] ICD10 Code Diagnosis IMO Codes Diagnosis Note [id number] RL RODRIGUEZ MD [facility] [address] [place] [address] 08/21/2025 09:57:11 08/21/2025 11:04:44 History of malignant neoplasm of skin 600539527 Z85.828 382707 not evaluated today Neoplasm o f uncertain behavior of skin 33623613 D48.5 92892 L palmr/o Eczema vs Psoriasis vs othershave biopsy [facility] notewound care instructio simon providedpa tient [...] by Organization Details LastModified Time None Recorded Advance Directives Directive None Recorded Payers Insurance Date Sequence Insurance Name Policy Number Policy Mari Covered Member ID Mari Member ID Guarantor Name 08/28/2025 1 [employer] (MEDICARE REPLACEMENT/A DVANTAGE - PPO) Zuhair Stover [id number] Zuhair Stover 08/21/2025 1 [place]) [id number] Zuhair Stover [id number] Zuhair Stover Notes Date Note Type Note Provider Name and Address Organization Details Recorded Time 08/21/2025 text/html ROS as noted in the HPI New patient- Self referred 70yo M presents to clinic today for dry/cracking hands for many years (started when he worked for [employer]). He does not recall that it had [...] history of malignant melanoma. RL RODRIGUEZ MD [address] [place] [address], [phone], [facility] 08/21/2025 15:47:12
--- NOTE | 2025-09-06 07:00 | CT_ITS ---
FINAL REPORT TECHNIQUE: Axial images were obtained through the chest without contrast. Supine inspiration and expiration and prone inspiration hi-resolution images were obtained and reviewed. This study was performed with techniques to keep radiation doses as low as reasonably achievable, (ALARA). Individualized dose reduction techniques using automated exposure control or adjustment of mA and/or kV according to the patient's size were employed. CLINICAL HISTORY: states when moving gets out of breath COMPARISON: None FINDINGS: There is no significant mediastinal mass or adenopathy. There are dense coronary artery calcifications. The heart size is normal. There is no pericardial or pleural effusion. No evidence of bronchiectasis. No significant interstitial opacity seen. However, there are several noncalcified nodules identified. The largest is in the periphery of the right upper lobe measuring 7 mm on image 26 of series 2. There is a small cluster of nodules along the minor fissure on image 32 of series 2. Limited images of the upper abdomen demonstrate no acute findings. IMPRESSION: Right upper lobe 7 mm nodule. Follow-up in 6 months per Fleischner criteria. No evidence of fibrosis or bronchiectasis. Reviewed, Interpreted and Dictated by Jordan Antonio MD Transcribed by Taty Mejias Authenticated and [facility]
== END 2025-09-06 23:59 | disposition home or self-care (01) ==
PROVIDERS: PCP Family Medicine; Visit Provider Internal Medicine Pulmonary Disease
DX: R91.8 Other nonspecific abnormal finding of lung field (principal); I25.10 Atherosclerotic heart disease of native coronary artery without angina pectoris
CPT/HCPCS: 71250; 94618